=== PATIENT | male | born 1935 | race Caucasian/White ===

== ENCOUNTER 2017-09-08 05:34 | Observation (INO) | payer OTHER, MEDICARE ==
[2017-09-08] MEDS ORDERED: NA CHLORIDE 0.9% 1,000 ML ONE (06:40)
[2017-09-08] MEDS ORDERED: IPRATROPIUM BROM 0.5MG/2.5ML ONE (06:40)
[2017-09-08] MEDS ORDERED: ALBUTEROL 2.5 MG/3 ML NEB SOL ONE (06:40)
[2017-09-08 06:44] LABS: Absolute Monocytes 0.9 K/uL (0.1-1.3); Absolute Neutrophil 8.9 K/uL (1.8-8.0); Basophils % 0.6 % (0-1.3); Eosinophils % 1.2 % (0-4.4); Hematocrit 41.9 % (39.6-49.0); Lymphocytes % 9.1 % (15.3-44.8); MCH 28.1 pg (27.0-35.0); MCV 86.2 fL (80-100); Monocytes % 8.5 % (3.3-12.3); RBC Red Blood Cell Count 4.86 M/uL (4.33-5.43)
[2017-09-08 06:49] LABS: Protime INR 1.35
[2017-09-08 08:05] LABS: CKMB Creatine Kinase MB 0.8 ng/ml (0.3-4.0); Potassium 4.1 mEq/L (3.6-5.0)
[2017-09-08 08:12] LABS: Albumin 3.7 g/dL (3.2-5.5); Bilirubin Direct 0.2 mg/dL (0-0.2); Bilirubin Total 1.2 mg/dL (0.3-1.2); Magnesium 1.8 mg/dL (1.8-2.5); Protein, Total 7.1 g/dL (6.0-8.3)
--- NOTE | 2017-09-08 09:06 | RAD REPORT ---
EXAM DESCRIPTION: CT - Head C Spine Cap W Con - 09/08/2017 8:38 am CLINICAL HISTORY: Trauma, head and neck injury. Chest, abdomen and pelvis pain. COMPARISON: 05/31/2017, 06/11/2017 TECHNIQUE: CT head without contrast. CT cervical spine without contrast with coronal and sagittal reformatted images. CT chest, abdomen and pelvis with contrast with coronal and sagittal reformatted images of the spine. All CT scans are performed using dose optimization technique as appropriate and may include automated exposure control or mA/KV adjustment according to patient size. FINDINGS: CT HEAD WITHOUT CONTRAST: No intracranial hemorrhage, hydrocephalus or extra-axial fluid collection. Advanced generalized brain atrophy is present with advanced periventricular and deep white matter chronic microvascular ischemi c changes. No areas of brain edema or midline shift. The paranasal sinuses and mastoids are clear. The calvarium is intact. CT CERVICAL SPINE WITHOUT CONTRAST: No fracture or subluxation. Mild mid and upper cervical degenerative changes. The prevertebral soft t issues are normal in thickness. CT CHEST, ABDOMEN, PELVIS WITH CONTRAST: Ill-defined linear opacity is present in the right lung base, likely representing subsegmental atelec tasis or aspiration. Similar findings are present, but less severe, and left lung base.Small right pl eural effusion is noted. Moderate axial hiatal hernia.No pneumothorax. Filling defects are seen in th e right lower lobe, posterior right upper lobe, medial left lower lobe and left upper lobe anterior p ulmonary arterial branches compatible with pulmonary emboli. No RV strain pattern seen. No acute aort ic abnormality detected. No evidence of intra-abdominal visceral injury, free fluid or free air. Surgical clips are present megan th inguinal regions. The appendix is not identified as a discrete structure, however, no secondary fi ndings of appendicitis are identified. No free air, bowel obstruction or abscess. Diffuse osteopenia is seen. Multilevel degenerative changes are noted. No acute fracture identified. IMPRESSION: Bilateral pulmonary emboli are noted as detailed. Linear opacities in the right lung base with small right pleural effusion may represent aspiration or atelectasis. No acute finding is seen elsewhere. The findings were discussed with ER physician Dr. Kaufman on 09/08/2017 at 9 a.m. by telephone.
--- NOTE | 2017-09-08 09:12 | RAD REPORT ---
EXAM DESCRIPTION: RAD - Chest Single View - 09/08/2017 7:11 am CLINICAL HISTORY: Chest pain. COMPARISON: 06/13/2017 FINDINGS: Portable technique limits examination quality. The lungs are underinflated with linear opacities in both lung bases, likely representing infiltrate or subsegmental atelectasis. Small pleural effusions present, greater on the right. The heart is norm al in size. No displaced fractures.
--- NOTE | 2017-09-08 09:21 | ER ---
Nurse's Notes [facility] Name: Linsey Mcdonnell Age: 82 yrs Sex: Male : 1935 Arrival Date: 09/08/2017 Time: 05:35 Bed 18 Private MD: Diagnosis: Chest pain on breathing;Personal history of pulmonary embolism;Acute embolism and thrombosis of other specified deep vein of right lower extremity Presentation: 09/08 05:40 Presenting complaint: Child states: that pt started to complain of pain to right side fc near bottom rib on Thursday night. Pain has gotten worse. Pt does have cough and chronic bronchitis. Transition of care: patient was not received from another setting of care. Onset of symptoms was September 06, 2017. Initial Sepsis Screen: Does the patient meet any 2 criteria? HR > 90 bpm. Yes Does the patient have a suspected source of infection? Yes: Productive cough/pneumonia. Care prior to arrival: None. 05:40 Method Of Arrival: Wheelchair 05:40 Acuity: GILMAR 3 fc Historical: - Allergies: 05:55 NKA; fc - Home Meds: 05:55 oxybutynin chloride 5 mg Oral tab 1 tab 2 times per day [Active]; Singulair 10 mg Oral fc tab 1 tab once daily [Active]; Claritin 10 mg Oral tab 1 tab once daily [Active]; omeprazole 40 mg Oral cpDR 1 cap once daily [Active]; albuterol sulfate 0.63 mg/3 mL Inhl nebu every 6 hours [Active]; budesonide 0.5 mg/2 mL inhalation nbsp 2 mL 2 times per day [Active]; - PMHx: 05:55 BLIND; COPD; GERD; impaction; Bronchitis; Dementia; allergies; fc - PSHx: 05:55 Appendectomy; Hernia repair; TURP; fc - Immunization history:: Last tetanus immunization: unknown. - Social history:: Smoking status: Patient/guardian denies using tobacco. - Family history:: not pertinent. Screenin:40 Abuse screen: Denies threats or abuse. Nutritional screening: No deficits noted. fc Tuberculosis screening: No symptoms or risk factors identified. Fall Risk Fall in past 12 months (25 points). Secondary diagnosis (15 points) dementia, No IV (0 pts). Ambulatory Aid- Crutches/Cane/Walker (15 pts). Gait- Weak (10 pts.). Mental Status- Overestimates/Forgets Limitations (15 pts.). Total Pitts Fall Scale indicates High Risk Score (45 or more points). Fall prevention measures have been instituted. Side Rails Up X 2 Placed Close to Nursing Station Frequent Obs/Assessments Occuring Family Present and informed to notify staff if the need to leave the bedside As available patient and family educated on Fall Prevention Program and Strategies. Assessment: 06:07 General: Appears in no apparent distress. Behavior is appropriate for age. Pain: lp1 Complains of pain in right upper quadrant Pain currently is 6 out of 10 on a pain scale. Quality of pain is described as aching. Neuro: Level of Consciousness is awake, alert, obeys commands. Cardiovascular: Patient's skin is warm and dry. Rhythm is sinus rhythm. Respiratory: Respiratory effort is even, Respiratory pattern is regular, symmetrical, Breath sounds are clear bilaterally. GI: Abdomen is non-distended. : Denies burning with urination. EENT: Parent/caregiver reports the patient having patient is blind. Derm: Skin is pink, warm \T\ dry. Musculoskeletal: Circulation, motion, and sensation intact. 07:10 Reassessment: Bedside report and hand off care to MERLENE Shrestha. lp1 08:55 Reassessment: Provider at bedside discussing plan of care. ae1 10:11 Reassessment: retail pharmacy technician at bedside. ae1 11:36 Reassessment: Called 4th floor to give report to receiving nurse, spoke to ángela Neal room is currently being cleaned and receiving nurse will return call. Will continue to monitor. Vital Signs: 05:40 BP 137 / 72; Pulse 91; Resp 20; Temp 98.1(O); Pulse Ox 94% on R/A; Weight 81.65 kg (R); fc Height 5 ft. 7 in. (170.18 cm) (R); Pain 9/10; 07:07 BP 130 / 76; Pulse 86; Resp 20; Pulse Ox 94% on R/A; lp1 07:30 BP 134 / 72; Pulse 92; Resp 25; Pulse Ox 94% on R/A; ae1 09:16 BP 134 / 83; Pulse 85; Resp 23; Pulse Ox 94% on R/A; ae1 10:01 BP 119 / 75; Pulse 91; Resp 19; Pulse Ox 96% on R/A; ae1 12:27 BP 138 / 71; Pulse 84; Resp 15; Pulse Ox 95% on R/A; ae1 05:40 Body Mass Index 28.19 (81.65 kg, 170.18 cm) ED Course: 05:35 Patient arrived in ED. ds1 05:40 Arm band placed on Patient placed in an exam room, on a stretcher. fc 05:40 Patient has correct armband on for positive identification. Placed in gown. Bed in low fc position. Call light in reach. Side rails up X2. alarm security or surveillance monitor on. Pulse ox on. NIBP on. 05:52 Triage completed. fc 06:00 Ramón Kaufman MD is Attending Physician. stanton 06:07 Mery Joe, MERLENE is Primary Nurse. lp1 06:37 EKG done, by ED staff, reviewed by Ramón Kaufman MD. Inserted saline lock: 20 gauge in lp1 right forearm, using aseptic technique. Blood collected. 07:09 XRAY Chest (1 view) In Process Unspecified. EDMS 08:[address] via stretcher. ae1 08:22 Straight cath inserted, using sterile technique, Specimen obtained. 15 FR Returned ae1 collin urine. Patient tolerated well. 08:39 CT Traumagram (Head C Spine CAP W Con) In Process Unspecified. EDMS 09:19 Gabby Mcdaniels MD is Hospitalizing Provider. stanton 10:43 Patient taken to ultrasound. via stretcher. ae1 11:07 Ultrasound completed. Patient moved back from ultrasound. hr 12:17 No provider procedures requiring assistance completed. Patient admitted, IV remains in ae1 place. Administered Medications: 06:46 Drug: NS 0.9% 1000 ml Route: IV; Rate: 75 ml/hr; Site: right forearm; lp1 12:05 Follow up: IV Status: Infusion continued upon admission ae1 06:47 Drug: Albuterol 2.5 mg Route: Inhalation; lp1 06:47 Drug: AtroVENT Aerosol 0.5 mg Route: Inhalation; lp1 10:30 Drug: Lovenox 1 mg/kg Route: Sub-Q; Site: right lower abdomen; ae1 12:05 Follow up: Response: No adverse reaction ae1 Outcome: 09:21 Decision to Hospitalize by Provider. stanton 12:17 Admitted to Tele accompanied by rachid family with patient, via stretcher, room 410, ae1 with chart, Report called to MERLENE Montilla 12:17 Condition: stable 12:17 Instructed on the need for admit, Demonstrated understanding of instructions. 12:32 Patient left the ED. ae1 Signatures: Dispatcher [employer] EDMO Ramón Kaufman MD MD cha Rod, Haley hr Chretien, Felicia, RN RN fc Sanford, Demi ds1 Mery Joe RN RN lp1 Clovis Samson RN RN ae1 Corrections: (The following items were deleted from the chart) 07:11 07:10 Reassessment: Bedside report from MERLENE Ordonez. lp1 lp1
--- NOTE | 2017-09-08 09:21 | EDPHYS ---
Physician Documentation [facility] Name: Linsey Mcdonnell Age: 82 yrs Sex: Male : 1935 Arrival Date: 09/08/2017 Time: 05:35 Bed 18 Private MD: Ramón Devine HPI: 09/08 06:12 This 82 yrs old Male presents to ER via Wheelchair with complaints of R Side stanton Pain. 06:12 The patient presents with abdominal pain. Onset: The symptoms/episode began/occurred stanton yesterday. The patient or guardian reports chest pain that is located primarily in the anterior chest wall, anterior aspect of right upper chest, diaphragm, right lateral anterior chest, right lateral posterior chest, right nipple and right breast. Onset: The symptoms/episode began/occurred 1 day(s) ago. The pain does not radiate. Associated signs and symptoms: Pertinent positives: abdominal pain, shortness of breath. The chest pain is described as sharp. Severity of pain: At its worst the pain was mild moderate in the emergency department the pain is unchanged. Historical: - Allergies: 05:55 NKA; fc - Home Meds: 05:55 oxybutynin chloride 5 mg Oral tab 1 tab 2 times per day [Active]; Singulair 10 mg Oral fc tab 1 tab once daily [Active]; Claritin 10 mg Oral tab 1 tab once daily [Active]; omeprazole 40 mg Oral cpDR 1 cap once daily [Active]; albuterol sulfate 0.63 mg/3 mL Inhl nebu every 6 hours [Active]; budesonide 0.5 mg/2 mL inhalation nbsp 2 mL 2 times per day [Active]; - PMHx: 05:55 BLIND; COPD; GERD; impaction; Bronchitis; Dementia; allergies; fc - PSHx: 05:55 Appendectomy; Hernia repair; TURP; fc - Immunization history:: Last tetanus immunization: unknown. - Social history:: Smoking status: Patient/guardian denies using tobacco. - Family history:: not pertinent. ROS: 06:12 Constitutional: Negative for fever, chills, and weight loss, Eyes: Negative for injury, stanton pain, redness, and discharge, ENT: Negative for injury, pain, and discharge, Neck: Negative for injury, pain, and swelling, Cardiovascular: Negative for chest pain, palpitations, and edema, Abdomen/GI: Negative for abdominal pain, nausea, vomiting, diarrhea, and constipation, Back: Negative for injury and pain, : Negative for injury, bleeding, discharge, and swelling, MS/Extremity: Negative for injury and deformity, Skin: Negative for injury, rash, and discoloration, Neuro: Negative for headache, weakness, numbness, tingling, and seizure, Psych: Negative for depression, anxiety, suicide ideation, homicidal ideation, and hallucinations, Allergy/Immunology: Negative for hives, rash, and allergies, Endocrine: Negative for neck swelling, polydipsia, polyuria, polyphagia, and marked weight changes. 06:12 Respiratory: Positive for cough, pleurisy, shortness of breath, wheezing, inspiratory, expiratory, of the right upper lobe, right middle lobe, right lower lobe, right posterior upper lobe, right posterior middle lobe and right posterior lower lobe. Exam: 06:12 Constitutional: This is a well developed, well nourished patient who is awake, alert, stanton and in no acute distress. Head/Face: Normocephalic, atraumatic. Eyes: Pupils equal round and reactive to light, extra-ocular motions intact. Lids and lashes normal. Conjunctiva and sclera are non-icteric and not injected. Cornea within normal limits. Periorbital areas with no swelling, redness, or edema. ENT: Nares patent. No nasal discharge, no septal abnormalities noted. Tympanic membranes are normal and external auditory canals are clear. Oropharynx with no redness, swelling, or masses, exudates, or evidence of obstruction, uvula midline. Mucous membranes moist. Neck: Trachea midline, no thyromegaly or masses palpated, and no cervical lymphadenopathy. Supple, full range of motion without nuchal rigidity, or vertebral point tenderness. No Meningismus. Cardiovascular: Regular rate and rhythm with a normal S1 and S2. No gallops, murmurs, or rubs. Normal PMI, no JVD. No pulse deficits. Respiratory: Lungs have equal breath sounds bilaterally, clear to auscultation and percussion. No rales, rhonchi or wheezes noted. No increased work of breathing, no retractions or nasal flaring. Abdomen/GI: Soft, non-tender, with normal bowel sounds. No distension or tympany. No guarding or rebound. No evidence of tenderness throughout. Back: No spinal tenderness. No costovertebral tenderness. Full range of motion. Male : Normal genitalia with no discharge or lesions. Skin: Warm, dry with normal turgor. Normal color with no rashes, no lesions, and no evidence of cellulitis. MS/ Extremity: Pulses equal, no cyanosis. Neurovascular intact. Full, normal range of motion. Neuro: Awake and alert, GCS 15, oriented to person, place, time, and situation. Cranial nerves II-XII grossly intact. Motor strength 5/5 in all extremities. Sensory grossly intact. Cerebellar exam normal. Normal gait. Psych: Awake, alert, with orientation to person, place and time. Behavior, mood, and affect are within normal limits. Vital Signs: 05:40 BP 137 / 72; Pulse 91; Resp 20; Temp 98.1(O); Pulse Ox 94% on R/A; Weight 81.65 kg (R); fc Height 5 ft. 7 in. (170.18 cm) (R); Pain 9/10; 07:07 BP 130 / 76; Pulse 86; Resp 20; Pulse Ox 94% on R/A; lp1 07:30 BP 134 / 72; Pulse 92; Resp 25; Pulse Ox 94% on R/A; ae1 09:16 BP 134 / 83; Pulse 85; Resp 23; Pulse Ox 94% on R/A; ae1 10:01 BP 119 / 75; Pulse 91; Resp 19; Pulse Ox 96% on R/A; ae1 12:27 BP 138 / 71; Pulse 84; Resp 15; Pulse Ox 95% on R/A; ae1 05:40 Body Mass Index 28.19 (81.65 kg, 170.18 cm) MDM: 06:00 Patient medically screened. [facility] 06:15 Data reviewed: vital signs, nurses notes, lab test result(s), EKG, radiologic studies, [facility] CT scan, plain films. 09/08 06:10 Order name: Basic Metabolic Panel; Complete Time: 08:22 [facility] 09/08 06:10 Order name: BNP; Complete Time: 07:24 [facility] 09/08 06:10 Order name: CBC with Diff; Complete Time: 07:14 [facility] 09/08 06:10 Order name: Ckmb; Complete Time: 08:22 [facility] 09/08 06:10 Order name: CPK; Complete Time: 08:22 [facility] 09/08 06:10 Order name: LFT's; Complete Time: 08:22 [facility] 09/08 06:10 Order name: Magnesium; Complete Time: 08:22 [facility] 09/08 06:10 Order name: PT-INR; Complete Time: 07:14 [facility] 09/08 06:10 Order name: Ptt, Activated; Complete Time: 07:14 [facility] 09/08 06:10 Order name: Troponin (emerg Dept Use Only); Complete Time: 07:14 [facility] 09/08 06:10 Order name: Lipase; Complete Time: 08:22 [facility] 09/08 09:49 Order name: Urine Dipstick--Ancillary (enter results) 09/08 10:38 Order name: Urine Dipstick-Ancillary [facility] 09/08 12:19 Order name: Procalcitonin [facility] 09/08 06:10 Order name: XRAY Chest (1 view); Complete Time: 09:18 [facility] 09/08 06:10 Order name: EKG; Complete Time: 06:10 [facility] 09/08 06:10 Order name: Cardiac monitoring; Complete Time: 06:11 [facility] 09/08 06:10 Order name: EKG - Nurse/Tech; Complete Time: 06:37 [facility] 09/08 06:10 Order name: IV Saline Lock; Complete Time: 06:37 [facility] 09/08 06:10 Order name: Labs collected and sent; Complete Time: 06:37 [facility] 09/08 06:10 Order name: CT Traumagram (Head C Spine CAP W Con); Complete Time: 09:18 [facility] 09/08 06:10 Order name: INCENTIVE SPIROMETRY [facility] 09/08 09:25 Order name: CONS Physician Consult [facility] 09/08 09:30 Order name: Echo w/ Doppler [facility] 09/08 10:04 Order name: US Extremity Venou Bilateral [facility] 09/08 11:17 Order name: VAS [facility] 09/08 06:10 Order name: O2 Per Protocol; Complete Time: 06:11 [facility] 09/08 06:10 Order name: O2 Sat Monitoring; Complete Time: 06:11 [facility] 09/08 06:10 Order name: Urine Dipstick-Ancillary (obtain specimen); Complete Time: 08:21 [facility] 09/08 08:21 Order name: Cath; Complete Time: 08:22 ae1 Administered Medications: 06:46 Drug: NS 0.9% 1000 ml Route: IV; Rate: 75 ml/hr; Site: right forearm; lp1 12:05 Follow up: IV Status: Infusion continued upon admission ae1 06:47 Drug: Albuterol 2.5 mg Route: Inhalation; lp1 06:47 Drug: AtroVENT Aerosol 0.5 mg Route: Inhalation; lp1 10:30 Drug: Lovenox 1 mg/kg Route: Sub-Q; Site: right lower abdomen; ae1 12:05 Follow up: Response: No adverse reaction ae1 Disposition: 09/08/17 09:21 Hospitalization ordered by Gabby Mcdaniels for Inpatient Admission. Preliminary diagnosis are Chest pain on breathing, Personal history of pulmonary embolism, Acute embolism and thrombosis of other specified deep vein of right lower extremity. - Bed requested for Telemetry/MedSurg (Inpatient). - Status is Inpatient Admission. ae1 - Condition is Stable. - Problem is new. - Symptoms have improved. UTI on Admission? No Signatures: Dispatcher [employer] EDMS Ramón Kaufman MD MD cha Chretien, Felicia, RN RN Nereyda Rocha RN RN Mery Joe RN RN lp1 Nini Vieyra Clovis Samson RN RN ae1 Corrections: (The following items were deleted from the chart) 10:41 09:21 Hospitalization Ordered by Gabby Mcdaniels MD for Inpatient Admission. Preliminary iw diagnosis is Chest pain on breathing; Personal history of pulmonary embolism. Bed requested for Telemetry/MedSurg (Inpatient). Status is Inpatient Admission. Condition is Stable. Problem is new. Symptoms have improved. UTI on Admission? No. [place] 11:26 10:41 09/08/2017 09:21 Hospitalization Ordered by Gabby Mcdaniels MD for Inpatient ag Admission. Preliminary diagnosis is Chest pain on breathing; Personal history of pulmonary embolism. Bed requested for [facility] ER HOLD. Status is Inpatient Admission. Condition is Stable. Problem is new. Symptoms have improved. UTI on Admission? No. iw 11:59 11:26 09/08/2017 09:21 Hospitalization Ordered by Gabby Mcdaniels MD for Inpatient stanton Admission. Preliminary diagnosis is Chest pain on breathing; Personal history of pulmonary embolism. Bed requested for Telemetry/MedSurg (Inpatient). Status is Inpatient Admission. Condition is Stable. Problem is new. Symptoms have improved. UTI on Admission? No. ag 12:32 11:59 09/08/2017 09:21 Hospitalization Ordered by Gabby Mcdaniels MD for Inpatient ae1 Admission. Preliminary diagnosis is Chest pain on breathing; Personal history of pulmonary embolism; Acute embolism and thrombosis of other specified deep vein of right lower extremity. Bed requested for Telemetry/MedSurg (Inpatient). Status is Inpatient Admission. Condition is Stable. Problem is new. Symptoms have improved. UTI on Admission? No. [place]
[2017-09-08] MEDS ORDERED: ENOXAPARIN 80 MG/0.8 ML SQ ONE (10:16)
[2017-09-08 10:38] LABS: Urine Blood TRACE (NEG); Urine Glucose NEGATIVE (NEG); Urine Protein NEGATIVE (NEG)
[2017-09-08] MEDS ORDERED: ONDANSETRON 4 MG/2 ML VIAL IV PRN (10:38)
[2017-09-08] MEDS ORDERED: ACETAMINOPHEN 500 MG TAB PO PRN (10:38)
--- NOTE | 2017-09-08 11:16 | RAD REPORT ---
EXAM DESCRIPTION: VASExtrem Venous W Compress Bil09/08/2017 11:00 am CLINICAL HISTORY: Bilateral leg s leg swelling and pain COMPARISON: none FINDINGS: Echogenic material consistent with acute thrombus is present within the proximal right sup erficial femoral vein extending into the right popliteal and right posterior tibial veins. The thromb us is occlusive. No evidence of deep veinous thrombosis involves left lower extremity IMPRESSION: Acute thrombus within the right superficial femoral, right popliteal and right posterior tibial veins
--- NOTE | 2017-09-08 11:55 | EKG ---
Test Date: 2017-09-08 Test Time: 06:20:54 [employer]: AB MEASUREMENT RESULTS: Intervals: Rate: 78 [place]: 172 QRSD: 92 QT: 360 QTc: 410 [place]: P: 39 [place]: 172 QRS: 0 T: 28 INTERPRETIVE STATEMENTS: Normal sinus rhythm Normal ECG Compared to ECG 06/11/2017 09:39:44 No significant changes Electronically Signed On 09-08-17 11:54:04 CDT by Delmer Luu
--- NOTE | 2017-09-08 13:01 | ECHO ---
HEIGHT: 5 ft 7 in WEIGHT: 180 lb 0 oz DATE OF STUDY: 09/08/[address]: Ramón Kaufman MD 2-DIMENSIONAL: YES M.MODE: YES DOPPLER: YES COLOR FLOW: YES TDS: YES PORTABLE: NO DEFINITY: NO BUBBLE STUDY: NO DIAGNOSIS: BILATERAL PES CARDIAC HISTORY: CATHERIZATION: SURGERY: PROSTHETIC VALVE: PACEMAKER: MEASUREMENTS (cm) DIASTOLIC (NORMALS) SYSTOLIC (NORMALS) IVSd 1.2 (0.6-1.2) LA Diam (1.9-4.0) LVEF 68% LVIDd 3.7 (3.5-5.7) LVIDs 2.3 (2.0-3.5) %FS 37% LVPWd 1.0 (0.6-1.2) Ao Diam 3.2 (2.0-3.7) 2 DIMENSIONAL ASSESSMENT: RIGHT ATRIUM: NORMAL LEFT ATRIUM: NORMLA RIGHT VENTRICLE: NORMAL LEFT VENTRICLE: NORMAL TRICUSPID VALVE: NORMAL MITRAL VALVE: NORMAL PULMONIC VALVE: NORMAL AORTIC VALVE: NORMAL PERICARDIAL EFFUSION: NONE AORTIC ROOT: NORMAL LEFT VENTRICULAR WALL MOTION: NORMAL DOPPLER/COLOR FLOW: NORMAL COMMENTS: TECHNICALLY DIFFICULT STUDY. GROSSLY NORMAL 2D ECHOCARDIOGRAM WITH DOPPLER. TECHNOLOGIST: Yanet HUANG
[2017-09-08] MEDS: IPRATROPIUM BROM 0.5MG/2.5ML NEB SCH ×2 (14:17→19:32)
[2017-09-08] MEDS: ALBUTEROL 2.5 MG/3 ML NEB SOL NEB SCH ×2 (14:17→19:32)
[2017-09-08] MEDS ORDERED: TRAMADOL HCL 50 MG TAB PO PRN (14:51)
[2017-09-08] MEDS: predniSONE 10 MG TAB PO SCH (15:02)
--- NOTE | 2017-09-08 16:50 | P.CNS ---
Date of Consult: 09/08/17 Reason for Consult: Pulmonary emboli Chief Complaint: Right-sided chest pain History of Present Illness: Patient is 82 years of age with a history of dementia COPD legally blind apparently started complaining of severe right-sided chest discomfort with started all of a sudden any came here to the emergency room and was found to have bilateral pulmonary emboli patient leads a very sedentary lifestyle in since in his wheelchair all day along recently travel to [place] in a car and was stationary for prolonged period of time the slight shortness of breath he does have COPD and is seeing a patient service associate in addition patient complains of persistent coughing spells after he had barium swallow was seen by speech therapy hemodynamically stable compliant with his medications Allergies No Known Allergies Allergy (Verified 05/24/17 06:03) Home Medications: Donepezil [Aricept*] 10 mg PO DAILY 06/11/17 Linaclotide [Linzess] 145 mcg PO DAILY 06/11/17 Albuterol Sulfate [Proair Hfa] 8.5 gm IH TID PRN #1 hfa.aer.ad 06/13/17 Budesonide [Pulmicort*] 0.5 mg IH BID #60 amp 06/13/17 Fluticasone [Flonase 50MCG Nasal [place]*] 1 sprays AJ BID #1 btl 06/13/17 Oxybutynin Chloride [Ditropan*] 5 mg PO BEDTIME #30 tab 06/13/17 Pantoprazole [Protonix Tab*] 40 mg PO DAILY #30 tab 06/13/17 Arformoterol Tartrate [Brovana] 15 mcg IH BID 09/08/17 Montelukast [Singulair] 10 mg PO DAILY 09/08/17 Prednisone [Deltasone*] 10 mg PO DAILY 09/08/17 - Past Medical/Surgical History Diabetic: No -: Chronic constipation -: COPD with chronic bronchiectasis -: BPH -: Urinary incontinence -: Blindness -: Dementia -: Retinitis Pigmentosa -: Bilateral inguinal hernia repair -: Appendectomy -: TURP -: Lower extremity fracture repair - hardware Psychosocial/ Personal History: The patient is . He has 4 children. He currently lives with his granddaughter. - Family History Father Medical History: Cancer Mother Medical History: Cancer - Social History Alcohol use: No CD- Drugs: No Caffeine use: Yes Place of Residence: Home Review of Systems 10-point ROS is otherwise unremarkable General: Weakness Cardiovascular: Chest Pain Physical Examination Temp Pulse Resp BP Pulse Ox 98.3 F 86 18 140/70 96 09/08/17 16:00 09/08/17 16:00 09/08/17 16:00 09/08/17 16:00 09/08/17 16:00 General: Alert, Cooperative Neck: Supple Respiratory: Clear to auscultation bilaterally, Diminished Cardiovascular: No edema, Normal pulses Gastrointestinal: Normal bowel sounds, Soft and benign Laboratory Data (last 24 hrs) 09/08/17 06:30: PT 16.0 H, INR 1.35, APTT 29.3 09/08/17 06:30: WBC 11.0 H, Hgb 13.7, Hct 41.9, Plt Count 255 09/08/17 06:30: B-Natriuretic Peptide < 10 09/08/17 06:30: Sodium 130 L, Potassium 4.1, BUN 22 H, Creatinine 0.90, Glucose 102, Magnesium 1.8, Total Bilirubin 1.2, AST 22, ALT 31, Alkaline Phosphatase 58 , Lipase 17 L - Problems (1) Pulmonary emboli Current Visit: Yes Status: Acute Plan: Patient is 82 years of age admitted with right-sided chest pain he has bilateral pulmonary emboli with acute right-sided DVT no recent surgeries and is a very sedentary lifestyle lives at home mi agree starting him on Eliquis 10 mg twice a day for 7 days and 5 mg twice a day for at least 3 months and then later and dose can be and adjusted to 2.5 mg twice a day discuss with family members labs reviewed echocardiogram is normal in addition he complains of slight dysphagia GI has been counseled Qualifiers: Chronicity: acute
--- NOTE | 2017-09-08 17:28 | P.HP ---
Certification for Inpatient Patient admitted to: Observation With expected LOS: <2 Midnights Patient will require the following post-hospital care: None Practitioner: I am a practitioner with admitting privileges, knowledge of patient current condition, hospital course, and medical plan of care. Services: Services provided to patient in accordance with Admission requirements found in Title 42 Section 412.3 of the Code of Federal Regulations Patient History Date of Service: 09/08/17 Primary Care Provider: Dr Ellsworth Reason for admission: Right-sided chest pain History of Present Illness: 82-year-old male with significant past medical history of COPD, GERD commode dementia who presented to the ED complaining of having some anterior chest wall pain along with the rib pain. Patient stated that his symptoms started yesterday in her located it primarily in the right upper chest wall abd breast area. Patient is sharp in nature and does think helps with the pain at home. Patient is wheelchair bound and does have limited mobility due to chronic debility. In the ER patient had a CT scan done which was found to have bilateral PE and extremity venous ultrasound was positive for DVT patient was then referred to admission for medicine team Allergies No Known Allergies Allergy (Verified 05/24/17 06:03) Home Medications: Donepezil [Aricept*] 10 mg PO DAILY 06/11/17 Linaclotide [Linzess] 145 mcg PO DAILY 06/11/17 Albuterol Sulfate [Proair Hfa] 8.5 gm IH TID PRN #1 hfa.aer.ad 06/13/17 Budesonide [Pulmicort*] 0.5 mg IH BID #60 amp 06/13/17 Fluticasone [Flonase 50MCG Nasal [place]*] 1 sprays AJ BID #1 btl 06/13/17 Oxybutynin Chloride [Ditropan*] 5 mg PO BEDTIME #30 tab 06/13/17 Pantoprazole [Protonix Tab*] 40 mg PO DAILY #30 tab 06/13/17 Arformoterol Tartrate [Brovana] 15 mcg IH BID 09/08/17 Montelukast [Singulair] 10 mg PO DAILY 09/08/17 Prednisone [Deltasone*] 10 mg PO DAILY 09/08/17 - Past Medical/Surgical History Has patient received pneumonia vaccine in the past: Yes Diabetic: No -: Chronic constipation -: COPD with chronic bronchiectasis -: BPH -: Urinary incontinence -: Blindness -: Dementia -: Retinitis Pigmentosa -: Bilateral inguinal hernia repair -: Appendectomy -: TURP -: Lower extremity fracture repair - hardware Psychosocial/ Personal History: The patient is . He has 4 children. He currently lives with his granddaughter. - Family History Father -: Cancer Mother -: Cancer - Social History Smoking Status: Never smoker Alcohol use: No CD- Drugs: No Caffeine use: Yes Place of Residence: Home Review of Systems General: As per HPI Physical Examination - Vital Signs Temperature: 98.3 F Blood Pressure: 140/70 Pulse: 86 Respirations: 18 Pulse Ox (%): 96 - Physical Exam General: Alert, In no apparent distress, Oriented x3 HEENT: Atraumatic, Other (Legally Blind) Neck: Supple Respiratory: Normal air movement, Expiratory wheezes, Inspiratory wheezes Cardiovascular: Regular rate/rhythm, Normal S1 S2 Gastrointestinal: Normal bowel sounds, No tenderness Musculoskeletal: No tenderness Integumentary: No rashes Neurological: Normal gait, Normal speech, Normal strength at 5/5 x4 extr, Normal tone, Normal affect Lymphatics: No axilla or inguinal lymphadenopathy - Studies Laboratory Data (last 24 hrs) 09/08/17 06:30: PT 16.0 H, INR 1.35, APTT 29.3 09/08/17 06:30: WBC 11.0 H, Hgb 13.7, Hct 41.9, Plt Count 255 09/08/17 06:30: B-Natriuretic Peptide < 10 09/08/17 06:30: Sodium 130 L, Potassium 4.1, BUN 22 H, Creatinine 0.90, Glucose 102, Magnesium 1.8, Total Bilirubin 1.2, AST 22, ALT 31, Alkaline Phosphatase 58 , Lipase 17 L Assessment and Plan - Problems (Diagnosis) (1) Pulmonary emboli Current Visit: Yes Status: Acute Plan: PE with Decreased Mobility -Started on Eliquis 10mg BID -Pulmonology Consulted. Appreciate [facility] -Will Get ECHO done here in the hospital Qualifiers: Pulmonary embolism type: other Chronicity: acute Acute cor pulmonale presence: without acute cor pulmonale Qualified Code(s): I26.99 - Other pulmonary embolism without acute cor pulmonale (2) DVT (deep venous thrombosis) Current Visit: Yes Status: Acute Plan: US of the Extermity with Acute thrombus within the right superficial femoral, right popliteal and right posterior tibial veins -See # 1 Qualifiers: DVT location: lower extremity Affected thrombotic vein of extremity: femoral Chronicity: acute Laterality: right Qualified Code(s): I82.411 - Acute embolism and thrombosis of right femoral vein (3) GERD (gastroesophageal reflux disease) Current Visit: Yes Status: Chronic Qualifiers: Esophagitis presence: without esophagitis Qualified Code(s): K21.9 - Gastro -esophageal reflux disease without esophagitis (4) Dysphagia Current Visit: Yes Status: Acute Plan: Pt had a MBS done on 09/01 which was consistent with Mild stasis -Speech Therapy and GI consult. Qualifiers: Dysphagia type: pharyngoesophageal phase Qualified Code(s): R13.14 - Dysphagia, pharyngoesophageal phase (5) COPD (chronic obstructive pulmonary disease) Current Visit: No Status: Chronic Qualifiers: COPD type: COPD with acute exacerbation Qualified Code(s): J44.1 - Chronic obstructive pulmonary disease with (acute) exacerbation (6) Dementia Onset Date: 06/12/17 Current Visit: No Status: Chronic Qualifiers: Dementia type: unspecified type Dementia behavioral disturbance: without behavioral disturbance Qualified Code(s): F03.90 - Unspecified dementia without behavioral disturbance Discharge Plan: Home Plan to discharge in: 24 Hours - Advance Directives Does patient have a Living Will: No Does patient have a Durable POA for Healthcare: Yes - Code Status/Comfort Care Code Status Assessed: Yes Critical Care: No
[2017-09-08] MEDS: BUDESONIDE 0.5 MG/2 ML NEB IH SCH (19:32)
[2017-09-08] MEDS: ARFORMOTEROL TARTRATE 15 MCG/2 ML VIAL.NEB IH SCH (19:32)
[2017-09-08] MEDS ORDERED: OXYBUTYNIN CHLORIDE 5 MG TAB PO SCH (21:00)
[2017-09-08] MEDS: FLUTICASONE 50MCG NASAL SPRAY NAS SCH (21:00)
[2017-09-08] MEDS ORDERED: DONEPEZIL HCL 5 MG TAB PO SCH (21:00)
[2017-09-08] MEDS: APIXABAN 5 MG TABLET PO SCH (21:30)
[2017-09-09] MEDS: IPRATROPIUM BROM 0.5MG/2.5ML NEB SCH ×3 (01:26→13:32)
[2017-09-09] MEDS: ALBUTEROL 2.5 MG/3 ML NEB SOL NEB SCH ×3 (01:26→13:32)
[2017-09-09 04:12] LABS: Absolute Lymphocytes (CBC) 0.8 K/uL (0.7-4.9); Absolute Monocytes 0.8 K/uL (0.1-1.3); Absolute Neutrophil 7.7 K/uL (1.8-8.0); Basophils % 0.2 % (0-1.3); Eosinophils % 1.1 % (0-4.4); Hematocrit 37.9 % (39.6-49.0); Lymphocytes % 8.4 % (15.3-44.8); MCV 85.7 fL (80-100); Monocytes % 8.9 % (3.3-12.3); RBC Red Blood Cell Count 4.42 M/uL (4.33-5.43)
[2017-09-09 04:29] LABS: ALT/SGPT 27 IU/L (10-60); AST/SGOT 20 IU/L (10-42); Albumin 3.2 g/dL (3.2-5.5); Alkaline Phosphatase 54 IU/L (42-121); BUN Blood Urea Nitrogen 17 mg/dL (6-20); Bicarbonate 28 mEq/L (21-31); Bilirubin Total 0.7 mg/dL (0.3-1.2); Glucose Level 127 mg/dL (65-120); Magnesium 1.8 mg/dL (1.8-2.5); Phosphorus 3.5 mg/dL (2.5-4.3); Potassium 4.1 mEq/L (3.6-5.0); Protein, Total 6.3 g/dL (6.0-8.3); Sodium Level 130 mEq/L (135-145)
[2017-09-09] MEDS ORDERED: MAGNESIUM SULFATE 1 gm IVPB 1 GM/100 ML BAG IV ONE (05:00)
[2017-09-09] MEDS ORDERED: NA CHLORIDE 0.9% 0 ML ONE (05:56)
[2017-09-09] MEDS ORDERED: PANTOPRAZOLE 40MG TABLET PO SCH (07:30)
[2017-09-09] MEDS: BUDESONIDE 0.5 MG/2 ML NEB IH SCH (08:00)
[2017-09-09] MEDS: ARFORMOTEROL TARTRATE 15 MCG/2 ML VIAL.NEB IH SCH (08:08)
[2017-09-09] MEDS ORDERED: BUDESONIDE 0.5 MG/2 ML NEB IH SCH (08:15)
[2017-09-09] MEDS ORDERED: MONTELUKAST 10 MG TAB PO SCH (09:00)
[2017-09-09] MEDS ORDERED: predniSONE 20 MG TAB PO SCH (09:00)
[2017-09-09] MEDS: FLUTICASONE 50MCG NASAL SPRAY NAS SCH (09:00)
[2017-09-09] MEDS ORDERED: HOME MED 1 EA UNK (Linaclotide [Linzess] 145 MCG) PO SCH (09:00)
[2017-09-09] MEDS ORDERED: ENOXAPARIN 40 MG/0.4 ML SQ SCH (09:00)
[2017-09-09] MEDS ORDERED: LACTULOSE 20 GM/30 ML UCUP PO ONE (09:36)
[2017-09-09] MEDS: predniSONE 10 MG TAB PO SCH (10:14)
[2017-09-09] MEDS: APIXABAN 5 MG TABLET PO SCH (10:14)
--- NOTE | 2017-09-09 14:10 | P.SSS ---
Patient History Date of Service: 09/09/17 Primary Care Provider: Dr Ellsworth Reason for admission: Right-sided chest pain History of Present Illness: 82-year-old male with significant past medical history of COPD, GERD commode dementia who presented to the ED complaining of having some anterior chest wall pain along with the rib pain. Patient stated that his symptoms started yesterday in her located it primarily in the right upper chest wall abd breast area. Patient is sharp in nature and does think helps with the pain at home. Patient is wheelchair bound and does have limited mobility due to chronic debility. In the ER patient had a CT scan done which was found to have bilateral PE and extremity venous ultrasound was positive for DVT patient was then referred to admission for medicine team Allergies No Known Allergies Allergy (Verified 05/24/17 06:03) Home Medications: Donepezil [Aricept*] 10 mg PO DAILY 06/11/17 Linaclotide [Linzess] 145 mcg PO DAILY 06/11/17 Albuterol Sulfate [Proair Hfa] 8.5 gm IH TID PRN #1 hfa.aer.ad 06/13/17 Budesonide [Pulmicort*] 0.5 mg IH BID #60 amp 06/13/17 Fluticasone [Flonase 50MCG Nasal [place]*] 1 sprays AJ BID #1 btl 06/13/17 Oxybutynin Chloride [Ditropan*] 5 mg PO BEDTIME #30 tab 06/13/17 Pantoprazole [Protonix Tab*] 40 mg PO DAILY #30 tab 06/13/17 Arformoterol Tartrate [Brovana] 15 mcg IH BID 09/08/17 Montelukast [Singulair*] 10 mg PO DAILY 09/08/17 Prednisone [Deltasone*] 10 mg PO DAILY 09/08/17 Apixaban [Eliquis] 10 mg PO BID #58 tablet 09/09/17 - Past Medical/Surgical History Has patient received pneumonia vaccine in the past: Yes Diabetic: No -: Chronic constipation -: COPD with chronic bronchiectasis -: BPH -: Urinary incontinence -: Blindness -: Dementia -: Retinitis Pigmentosa -: Bilateral inguinal hernia repair -: Appendectomy -: TURP -: Lower extremity fracture repair - hardware Psychosocial/ Personal History: The patient is . He has 4 children. He currently lives with his granddaughter. - Family History Father -: Cancer Mother -: Cancer - Social History Smoking Status: Never smoker Alcohol use: No CD- Drugs: No Caffeine use: Yes Place of Residence: Home Review of Systems General: As per HPI Physical Examination - Vital Signs Temperature: 97.2 F Blood Pressure: 132/65 Pulse: 88 Respirations: 18 Pulse Ox (%): 18 - Physical Exam General: Alert, In no apparent distress HEENT: Atraumatic, PERRLA, Mucous membr. moist/pink, EOMI, Sclerae nonicteric Neck: Supple, 2+ carotid pulse no bruit, No LAD, Without JVD or thyroid abnormality Respiratory: Clear to auscultation bilaterally, Normal air movement Cardiovascular: Regular rate/rhythm, Normal S1 S2 Gastrointestinal: Normal bowel sounds, No tenderness Musculoskeletal: No tenderness Integumentary: No rashes Neurological: Normal gait, Normal speech, Normal strength at 5/5 x4 extr, Normal tone, Normal affect Lymphatics: No axilla or inguinal lymphadenopathy - Diagnosis (Problem(s)) (1) Pulmonary emboli Onset Date: 09/09/17 Current Visit: Yes Status: Acute Plan: PE with Decreased Mobility -Started on Eliquis 10mg BID for 7 days and will be switched to 5mg BID -Pulmonology Consulted. Appreciate [facility] Qualifiers: Pulmonary embolism type: other Chronicity: acute Acute cor pulmonale presence: without acute cor pulmonale Qualified Code(s): I26.99 - Other pulmonary embolism without acute cor pulmonale (2) DVT (deep venous thrombosis) Onset Date: 09/09/17 Current Visit: Yes Status: Acute Plan: US of the Extermity with Acute thrombus within the right superficial femoral, right popliteal and right posterior tibial veins -See # 1 Qualifiers: DVT location: lower extremity Affected thrombotic vein of extremity: femoral Chronicity: acute Laterality: right Qualified Code(s): I82.411 - Acute embolism and thrombosis of right femoral vein (3) GERD (gastroesophageal reflux disease) Onset Date: 09/09/17 Current Visit: Yes Status: Chronic Qualifiers: Esophagitis presence: without esophagitis Qualified Code(s): K21.9 - Gastro -esophageal reflux disease without esophagitis (4) Dysphagia Onset Date: 09/09/17 Current Visit: Yes Status: Chronic Plan: Pt had a MBS done on 09/01 which was consistent with Mild stasis -Speech Therapy. Normal Swollowing -Pt to f/u with outpt GI Qualifiers: Dysphagia type: pharyngoesophageal phase Qualified Code(s): R13.14 - Dysphagia, pharyngoesophageal phase (5) COPD (chronic obstructive pulmonary disease) Onset Date: 09/09/17 Current Visit: Yes Status: Chronic Qualifiers: COPD type: COPD with acute exacerbation Qualified Code(s): J44.1 - Chronic obstructive pulmonary disease with (acute) exacerbation (6) Dementia Onset Date: 06/12/17 Current Visit: No Status: Chronic Qualifiers: Dementia type: unspecified type Dementia behavioral disturbance: without behavioral disturbance Qualified Code(s): F03.90 - Unspecified dementia without behavioral disturbance Treatment Summary: Overall during the hospital stay patient remained stable Patient was initially admitted to the hospital for bilateral pulmonary embolism along with DVT on the right lower extremity. Patient was started on Eliquis 10 mg b.i.d.. Pulmonology was consulted who agreed with the plan and patient was doing well post Eliquis attestation. Patient had been on swallow done on the 1st and [facility] which was consistent with mild stasis. Speech therapy was consulted for side swallow. Patient's fellow passed a swallow study with some mild stasis. Patient will be needing to follow up with GI outpatient. Patient on day 2 was doing markedly well and had a p.o. intake. This was discharged home under stable condition. - Disposition Disposition: ROUTINE DISCHARGE Condition: GOOD Patient Discharge Instructions: Please f/u with Dr Ellsworth in 1 to 2 week post discharge. Please f/u with Pulmonology for PE in 1 to 2 days. Please f/u with GI in 1 to 2 weeks to assess for Mild stasis in the esophagus. New medication. Eliquis 10mg BID for 7 days and then take 5mg BID for rest of time Diet: Regular Activity: Ad belen
== END 2017-09-09 14:15 | disposition home or self-care (01) ==
LOC: ER 05:34 → ERHOLD 09:22 → INTOOBSV 09:22 → 4TH 12:06
PROVIDERS: ADMIT Family Medicine; ATTEND Family Medicine
DX: I26.99 Other pulmonary embolism without acute cor pulmonale (principal); I82.411 Acute embolism and thrombosis of right femoral vein; I82.431 Acute embolism and thrombosis of right popliteal vein; I82.441 Acute embolism and thrombosis of right tibial vein; R13.14 Dysphagia, pharyngoesophageal phase; J44.9 Chronic obstructive pulmonary disease, unspecified; F03.90 Unspecified dementia, unspecified severity, without behavioral disturbance, psychotic disturbance, mood disturbance, and anxiety; N40.0 Benign prostatic hyperplasia without lower urinary tract symptoms; H54.7 Unspecified visual loss; K21.9 Gastro-esophageal reflux disease without esophagitis
CPT/HCPCS: 36415; 51702; 70450; 71045; 71260; 72125; 74177; 80048; 80053; 80076; 81003; 82550; 82553; 83690; 83735 ×2; 83880; 84100; 84145; 84484; 85025 ×2; 85610; 85730; 92526; 93005; 93306; 93970; 94640; 94760 ×4; 96360; 96361; 96372; 99285; G0378 ×2; J1650; J3475; J7030; J7605 ×2; Q9967; J7512

== ENCOUNTER 2017-09-24 11:18 | Emergency (ER) | payer OTHER, MEDICARE ==
[2017-09-24] MEDS ORDERED: NA CHLORIDE 0.9% 2,000 ML ONE (11:43)
[2017-09-24 12:13] LABS: Absolute Lymphocytes (CBC) 1.7 K/uL (0.7-4.9); Absolute Monocytes 0.7 K/uL (0.1-1.3); Absolute Neutrophil 5.8 K/uL (1.8-8.0); Hematocrit 39.9 % (39.6-49.0); Lymphocytes % 19.9 % (15.3-44.8); MCH 27.9 pg (27.0-35.0); MCV 84.9 fL (80-100); Monocytes % 7.7 % (3.3-12.3)
[2017-09-24 12:31] LABS: Potassium 4.1 mEq/L (3.6-5.0)
[2017-09-24 12:37] LABS: Albumin 3.1 g/dL (3.2-5.5); Bilirubin Direct 0.1 mg/dL (0-0.2); Bilirubin Total 0.5 mg/dL (0.3-1.2); Magnesium 1.9 mg/dL (1.8-2.5); Protein, Total 6.6 g/dL (6.0-8.3)
--- NOTE | 2017-09-24 13:30 | RAD REPORT ---
EXAM DESCRIPTION: CT - Chest For Pe Angio - 09/24/2017 1:00 pm CLINICAL HISTORY: Chest pain, shortness of breath COMPARISON: CT chest September 08 TECHNIQUE: Dynamically enhanced 3 mm thick images of the chest were obtained during administration o f approximately 150mL Isovue 370 IV contrast. Coronal and oblique reconstruction images were generate d and reviewed. Exam utilizes a protocol to evaluate the pulmonary arterial tree. All CT scans are performed using dose optimization technique as appropriate and may include automated exposure control or mA/KV adjustment according to patient size. FINDINGS: No acute pulmonary emboli identified. The multi lobar pulmonary emboli seen September 08 have f ully or almost fully resolved. No propagation. Far peripheral branch assessment is limited somewhat b y motion. Small right pleural effusion and right lower lobe atelectasis have not improved. No new or progressive lung parenchymal process identifiable. The aorta as imaged shows no acute or suspicious finding. No pericardial thickening or effusion. No pneumothorax. No pleural based mass. No new mediastinal or hilar mass or lymphadenopathy. Large hiatal hernia is again identified. No ches t wall masses or abnormal axillary lymphadenopathy. IMPRESSION: No new pulmonary emboli any emboli seen September 08 have resolved or nearly fully resolved. Small right pleural effusion and atelectasis have not changed since September 08. No new or progressive lung parenchymal process identifiable. No other significant or suspicious findings.
--- NOTE | 2017-09-24 13:51 | RAD REPORT ---
EXAM DESCRIPTION: RAD - Chest Single View - 09/24/2017 1:15 pm CLINICAL HISTORY: Chest pain COMPARISON: September 08 TECHNIQUE: AP portable chest image was obtained 1220 hours . FINDINGS: Low lung volumes noted. Patient has chronic interstitial lung disease that could mask evette y interstitial edema or infiltrate. No peripheral mass or consolidation. No significant failure or vo lume overload suspected. Heart and vasculature are normal. No pneumothorax or large pleural effusion. No gross bony abnormality seen. Aorta is tortuous. No acute aortic finding suspected. IMPRESSION: No acute cardiopulmonary process. Chronic interstitial lung disease could mask early interstitial edema or infiltrate.
--- NOTE | 2017-09-24 13:53 | RAD REPORT ---
EXAM DESCRIPTION: VAS - Extrem Venous W Compress Zeb - 09/24/2017 12:51 pm CLINICAL HISTORY: Shortness of breath, leg DVT COMPARISON: Ultrasound September 08 TECHNIQUE: Real-time sonographic evaluation of the bilateral lower extremity deep venous systems was performed. FINDINGS: Thrombus is still present in the superficial femoral and popliteal veins. Right common fem oral vein remains clear. Posterior tibial vein has resolved or partially resolved. No evidence for pr opagation of the DVT. IMPRESSION: Extensive thrombus remains in the right superficial femoral and popliteal veins. There h as been partial clearing of the posterior tibial vein. No evidence for DVT propagation.
[2017-09-24 14:08] LABS: Urine Blood NEGATIVE (NEG); Urine Glucose NEGATIVE (NEG); Urine Protein NEGATIVE (NEG)
[2017-09-24 14:15] LABS: Protime INR 1.37
[2017-09-24 15:30] LABS: CKMB Creatine Kinase MB 1.3 ng/ml (0.3-4.0)
--- NOTE | 2017-09-24 17:50 | EDPHYS ---
Physician Documentation [facility] Name: Linsey Mcdonnell Age: 82 yrs Sex: Male : 1935 Arrival Date: 09/24/2017 Time: 11:[address] Private MD: Hermilo Ellsworth ED Physician Damien Waters HPI: 09/25 10:30 This 82 yrs old Male presents to ER via EMS with complaints of Shortness Of kdr Breath, Chest Pain > 30 y/o. 10:31 The patient or guardian reports chest pain that is located primarily in the substernal kdr area, anterior chest wall, bilaterally. Onset: just prior to arrival. The pain does not radiate. Associated signs and symptoms: Pertinent positives: shortness of breath, Pertinent negatives: abdominal pain, cough, diaphoresis, dizziness, headache, lower extremity pain, lower extremity swelling, lightheadedness, nausea, near syncope, palpitations, recent travel, syncope, vomiting, The patient was recently diagnosed with PE and is on Xerelto. The chest pain is described as aching, dull. Duration: The patient or guardian reports a single episode, that is still ongoing, and unchanged. Modifying factors: The symptoms are alleviated by nothing. the symptoms are aggravated by nothing. Severity of pain: At its worst the pain was mild in the emergency department the pain is unchanged. The patient has not experienced similar symptoms in the past. The patient has been recently seen by a physician: As noted above with regard to PE. Historical: - Allergies: 09/24 11:34 NKA; ae1 - Home Meds: 11:34 linaclotide oral oral [Active]; prednisone 10 mg Oral tab 1 tab once daily [Active]; rv Eliquis 5 mg oral tab 2 tabs 2 times per day [Active]; pantoprazole 40 mg oral TbEC 1 tab once daily [Active]; oxybutynin chloride 5 mg Oral tab 1 tab 2 times per day [Active]; 11:34 albuterol sulfate 0.63 mg/3 mL Inhl nebu every 6 hours [Active]; budesonide 0.5 mg/2 mL ae1 inhalation nbsp 2 mL 2 times per day [Active]; Claritin 10 mg Oral tab 1 tab once daily [Active]; omeprazole 40 mg Oral cpDR 1 cap once daily [Active]; oxybutynin chloride 5 mg Oral tab 1 tab 2 times per day [Active]; Singulair 10 mg Oral tab 1 tab once daily [Active]; - PMHx: 11:34 allergies; BLIND; Bronchitis; COPD; Dementia; GERD; impaction; ae1 - Immunization history:: Flu vaccine is up to date. - Social history:: Smoking status: Patient/guardian denies using tobacco. - Ebola Screening: : Patient negative for fever greater than or equal to 101.5 degrees Fahrenheit, and additional compatible Ebola Virus Disease symptoms. ROS: 09/25 10:31 Constitutional: Negative for fever, chills, and weight loss, Eyes: Negative for injury, kdr pain, redness, and discharge, ENT: Negative for injury, pain, and discharge, Neck: Negative for injury, pain, and swelling, Abdomen/GI: Negative for abdominal pain, nausea, vomiting, diarrhea, and constipation, Back: Negative for injury and pain, : Negative for injury, bleeding, discharge, and swelling, MS/Extremity: Negative for injury and deformity, Skin: Negative for injury, rash, and discoloration, Neuro: Negative for headache, weakness, numbness, tingling, and seizure activity. Psych: Negative for depression, anxiety, suicide ideation, homicidal ideation, and hallucinations, Allergy/Immunology: Negative for hives, rash, and allergies, Endocrine: Negative for neck swelling, polydipsia, polyuria, polyphagia, and marked weight changes, Hematologic/Lymphatic: Negative for swollen nodes, abnormal bleeding, and unusual bruising. Cardiovascular: Positive for chest pain, Negative for edema, orthopnea, palpitations, paroxysmal nocturnal dyspnea. Respiratory: Positive for shortness of breath, Negative for cough, hemoptysis, orthopnea, pleurisy, sputum production, wheezing. Exam: 10:31 Constitutional: This is a well developed, well nourished patient who is awake, alert, kdr and in no acute distress. Head/Face: Normocephalic, atraumatic. Eyes: Pupils equal round and reactive to light, extra-ocular motions intact. Lids and lashes normal. Conjunctiva and sclera are non-icteric and not injected. Cornea within normal limits. Periorbital areas with no swelling, redness, or edema. Neck: Trachea midline, no thyromegaly or masses palpated, and no cervical lymphadenopathy. Supple, full range of motion without nuchal rigidity, or vertebral point tenderness. No Meningismus. Chest/axilla: Normal chest wall appearance and motion. Nontender with no deformity. No lesions are appreciated. Cardiovascular: Regular rate and rhythm with a normal S1 and S2. No gallops, murmurs, or rubs. Normal PMI, no JVD. No pulse deficits. Respiratory: Lungs have equal breath sounds bilaterally, clear to auscultation and percussion. No rales, rhonchi or wheezes noted. No increased work of breathing, no retractions or nasal flaring. Abdomen/GI: Soft, non-tender, with normal bowel sounds. No distension or tympany. No guarding or rebound. No evidence of tenderness throughout. Back: No spinal tenderness. No costovertebral tenderness. Full range of motion. Skin: Warm, dry with normal turgor. Normal color with no rashes, no lesions, and no evidence of cellulitis. MS/ Extremity: Pulses equal, no cyanosis. Neurovascular intact. Full, normal range of motion. Neuro: Awake and alert, GCS 15, oriented to person, place, time, and situation. Cranial nerves II-XII grossly intact. Motor strength 5/5 in all extremities. Sensory grossly intact. Psych: Awake, alert, with orientation to person, place and time. Behavior, mood, and affect are within normal limits. Vital Signs: 09/24 11:28 BP 108 / 73; Pulse 82; Resp 16; Temp 97.8(O); Pulse Ox 99% on 3 lpm NC; ae1 11:48 BP 107 / 73; Pulse 77; Resp 20; Pulse Ox 97% on 3 lpm NC; ae1 12:01 Weight 81.65 kg (R); ae1 13:45 BP 121 / 84; Pulse 70; Resp 18; Pulse Ox 100% on 3 lpm NC; kr2 15:00 BP 108 / 69; Pulse 64; Resp 19; Pulse Ox 96% on R/A; kr2 16:19 BP 117 / 77; Pulse 72; Resp 18; Pulse Ox 98% on R/A; kr2 17:47 BP 127 / 84; Pulse 64; Resp 16; Pulse Ox 96% on R/A; [facility] MDM: 17:49 Patient medically screened. kdr 09/25 10:31 Data reviewed: vital signs, nurses notes, lab test result(s), EKG, radiologic studies. kdr Counseling: I had a detailed discussion with the patient and/or guardian regarding: the historical points, exam findings, and any diagnostic results supporting the discharge/admit diagnosis, lab results, radiology results, the need for outpatient follow up. 09/24 12:02 Order name: Basic Metabolic Panel; Complete Time: 15:45 09/24 12:02 Order name: BNP; Complete Time: 15:45 09/24 12:02 Order name: CBC with Diff; Complete Time: 13:47 09/24 12:02 Order name: Ckmb; Complete Time: 15:45 09/24 12:02 Order name: CPK; Complete Time: 15:45 09/24 12:02 Order name: LFT's; Complete Time: 15:45 09/24 12:02 Order name: Magnesium; Complete Time: 15:45 09/24 12:02 Order name: PT-INR; Complete Time: 14:34 09/24 12:02 Order name: Ptt, Activated; Complete Time: 14:34 09/24 12:02 Order name: Troponin (emerg Dept Use Only); Complete Time: 15:45 09/24 12:02 Order name: XRAY Chest (1 view); Complete Time: 14:34 09/24 12:17 Order name: US Extremity Venous W Compression Zeb; Complete Time: 14:34 kdr 09/24 13:21 Order name: Urine Dipstick--Ancillary (enter results); Complete Time: 14:34 bd 09/24 15:46 Order name: Troponin (emerg Dept Use Only); Complete Time: 17:48 kdr 09/24 12:02 Order name: EKG; Complete Time: 12:03 09/24 12:02 Order name: Cardiac monitoring; Complete Time: 12:02 09/24 12:02 Order name: EKG - Nurse/Tech; Complete Time: 12:02 09/24 12:02 Order name: IV Saline Lock; Complete Time: 12:02 09/24 12:02 Order name: Labs collected and sent; Complete Time: 12:02 09/24 12:02 Order name: O2 Per Protocol; Complete Time: 12:02 tw2 09/24 12:02 Order name: O2 Sat Monitoring; Complete Time: 12:02 tw2 09/24 12:02 Order name: Urine Dipstick-Ancillary (obtain specimen); Complete Time: 12:31 tw2 09/24 12:17 Order name: CT Chest For PE Angio; Complete Time: 13:47 kdr 09/24 12:39 Order name: Labs - recollect needed; Complete Time: 13:41 bd Administered Medications: 09/24 11:47 Drug: NS 0.9% 1000 ml Route: IV; Rate: 1000 ml; Site: right antecubital; ae1 18:41 Follow up: Response: No adverse reaction; IV Status: Completed infusion kr2 11:47 Drug: NS 0.9% 1000 ml Route: IV; Rate: 1 bolus; Site: right antecubital; ae1 18:41 Follow up: Response: No adverse reaction; IV Status: Completed infusion kr2 Disposition: 09/24/17 17:49 Discharged to Home. Impression: Chest pain, unspecified, Shortness of breath. - Condition is Stable. - Discharge Instructions: Shortness of Breath, [id number], Nonspecific Chest Pain, [id number]. - Medication Reconciliation Form, Thank You Letter form. - Follow up: Hermilo Ellsworth MD; When: 2 - 3 days; Reason: If symptoms return, Further diagnostic work-up, Recheck today's complaints, Continuance of care, Re-evaluation by your physician. - Problem is new. - Symptoms have improved. Signatures: Dispatcher [employer] EDMS Kim Whalen Kevin, MD MD kdr Wise, Tara RN RN tw2 Clovis Samson RN RN ae1 Raisa Yin, RN RN kr2 Yinka Mcarthur, RN RN rv Corrections: (The following items were deleted from the chart) 18:44 17:49 09/24/2017 17:49 Discharged to Home. Impression: Chest pain, unspecified; kr2 Shortness of breath. Condition is Stable. Forms are Medication Reconciliation Form, Thank You Letter, Antibiotic Education, Prescription Opioid Use. Follow up: Herimlo Ellwsorth; When: 2 - 3 days; Reason: If symptoms return, Further diagnostic work-up, Recheck today's complaints, Continuance of care, Re-evaluation by your physician. Problem is new. Symptoms have improved. kdr
--- NOTE | 2017-09-24 17:50 | ER ---
Nurse's Notes [facility] Name: Linsey Mcdonnell Age: 82 yrs Sex: Male : 1935 Arrival Date: 09/24/2017 Time: 11:[address] Private MD: Hermilo Ellsworth Diagnosis: Chest pain, unspecified;Shortness of breath Presentation: 09/24 11:30 Presenting complaint: EMS states: Patient report chest pain and shortness of breath ae1 since the previous evening. Patient was admitted here approx 3 weeks ago with a dx of DANK pulmonary emboli. Transition of care: patient was not received from another setting of care. Onset of symptoms was September 24, 2017. Risk Assessment: Do you want to hurt yourself or someone else? Patient reports no desire to harm self or others. Care prior to arrival: Medication(s) given: ASA, 81 mg, x 4, Normal saline infusion, 200 mls infused from the liter so far. Nitroglycerin, 0.4 mg SL x 1, IV initiated. 20 GA, in the right wrist. 11:30 Method Of Arrival: EMS: [facility] ae1 11:30 Acuity: GILMAR 3 ae1 12:17 Initial Sepsis Screen: Does the patient meet any 2 criteria? No. Patient's initial ae1 sepsis screen is negative. Does the patient have a suspected source of infection? No. Patient's initial sepsis screen is negative. Triage Assessment: 11:37 General: Appears in no apparent distress. comfortable, Behavior is calm, cooperative. ae1 Respiratory: Onset: The symptoms/episode began/occurred gradually, the patient has mild shortness of breath. Historical: - Allergies: 11:34 NKA; ae1 - Home Meds: 11:34 linaclotide oral oral [Active]; prednisone 10 mg Oral tab 1 tab once daily [Active]; rv Eliquis 5 mg oral tab 2 tabs 2 times per day [Active]; pantoprazole 40 mg oral TbEC 1 tab once daily [Active]; oxybutynin chloride 5 mg Oral tab 1 tab 2 times per day [Active]; 11:34 albuterol sulfate 0.63 mg/3 mL Inhl nebu every 6 hours [Active]; budesonide 0.5 mg/2 mL ae1 inhalation nbsp 2 mL 2 times per day [Active]; Claritin 10 mg Oral tab 1 tab once daily [Active]; omeprazole 40 mg Oral cpDR 1 cap once daily [Active]; oxybutynin chloride 5 mg Oral tab 1 tab 2 times per day [Active]; Singulair 10 mg Oral tab 1 tab once daily [Active]; - PMHx: 11:34 allergies; BLIND; Bronchitis; COPD; Dementia; GERD; impaction; ae1 - Immunization history:: Flu vaccine is up to date. - Social history:: Smoking status: Patient/guardian denies using tobacco. - Ebola Screening: : Patient negative for fever greater than or equal to 101.5 degrees Fahrenheit, and additional compatible Ebola Virus Disease symptoms. Screenin:17 Abuse screen: Denies threats or abuse. Nutritional screening: No deficits noted. ae1 Tuberculosis screening: Never had TB. Possible symptoms: None. Fall Risk Ambulatory Aid- Crutches/Cane/Walker (15 pts). Assessment: 11:35 Pain: Complains of pain in chest. Pain: Pain currently is 5 out of 10 on a pain scale. ae1 Neuro: Level of Consciousness is awake, alert, obeys commands, Oriented to person, place, situation. Cardiovascular: Patient's skin is warm and dry. Rhythm is regular. Respiratory: Airway is patent Respiratory effort is even, unlabored, Respiratory pattern is regular, symmetrical, Breath sounds are diminished in right middle lobe and right lower lobe. Respiratory: Reports shortness of breath at rest. GI: No signs and/or symptoms were reported involving the gastrointestinal system. : No signs and/or symptoms were reported regarding the genitourinary system. EENT: Patient is blind, and [place], has DANK hearing aids . Derm: Skin is pale. Musculoskeletal: Reports Generalized weakness. 13:44 Reassessment: Patient appears in no apparent distress at this time. Patient and/or kr2 family updated on plan of care and expected duration. Pain level reassessed. Patient is alert, oriented x 3, equal unlabored respirations, skin warm/dry/pink. Assisted up to bedside to use urinal without difficulty. 15:00 Reassessment: Patient appears in no apparent distress at this time. Patient and/or kr2 family updated on plan of care and expected duration. Pain level reassessed. Patient is alert, oriented x 3, equal unlabored respirations, skin warm/dry/pink. 16:17 Reassessment: Patient appears in no apparent distress at this time. Patient and/or kr2 family updated on plan of care and expected duration. Pain level reassessed. Patient is alert, oriented x 3, equal unlabored respirations, skin warm/dry/pink. Patient provided with fruit cup and crackers after checking with Dr. Waters. Patient denies pain at this time. 17:30 Reassessment: Patient appears in no apparent distress at this time. Patient and/or kr2 family updated on plan of care and expected duration. Pain level reassessed. Patient is alert, oriented x 3, equal unlabored respirations, skin warm/dry/pink. Patient denies pain at this time. 18:30 Reassessment: Patient appears in no apparent distress at this time. Patient and/or kr2 family updated on plan of care and expected duration. Pain level reassessed. Patient is alert, oriented x 3, equal unlabored respirations, skin warm/dry/pink. Patient denies pain at this time. Vital Signs: 11:28 BP 108 / 73; Pulse 82; Resp 16; Temp 97.8(O); Pulse Ox 99% on 3 lpm NC; ae1 11:48 BP 107 / 73; Pulse 77; Resp 20; Pulse Ox 97% on 3 lpm NC; ae1 12:01 Weight 81.65 kg (R); ae1 13:45 BP 121 / 84; Pulse 70; Resp 18; Pulse Ox 100% on 3 lpm NC; kr2 15:00 BP 108 / 69; Pulse 64; Resp 19; Pulse Ox 96% on R/A; kr2 16:19 BP 117 / 77; Pulse 72; Resp 18; Pulse Ox 98% on R/A; kr2 17:47 BP 127 / 84; Pulse 64; Resp 16; Pulse Ox 96% on R/A; mh5 ED Course: 11:21 EKG done, by dentures lab technician. reviewed by Damien Waters MD. sm3 11:22 Patient arrived in ED. tw2 11:24 Damien Waters MD is Attending Physician. kdr 11:28 Clovis Samson, MERLENE is Primary Nurse. ae1 11:30 Inserted saline lock: 20 gauge in right antecubital area, using aseptic technique. rv 11:33 Triage completed. ae1 11:37 Arm band placed on right wrist. EKG completed in triage. Results shown to MD. ae1 11:37 Placed in gown. Bed in low position. Call light in reach. Side rails up X2. Cardiac ae1 monitor on. Pulse ox on. NIBP on. Warm blanket given. 12:22 X-ray completed. Portable x-ray completed in exam room. Patient tolerated procedure kp1 well. 12:23 Hermilo Ellsworth MD is Private Physician. sb2 12:24 XRAY Chest (1 view) In Process Unspecified. EDMS 12:40 US Extremity Venous W Compression Dank In Process Unspecified. EDMS 12:59 CT completed. Patient tolerated procedure well. Patient moved to CT via stretcher. Patient moved back from CT. 13:01 CT Chest For PE Angio In Process Unspecified. EDMS 13:40 Lab(s) recollected, by me, sent to lab. mh5 17:48 Hermilo Ellsworth MD is Referral Physician. kdr 18:41 No provider procedures requiring assistance completed. IV discontinued, intact, kr2 bleeding controlled, No redness/swelling at site. Pressure dressing applied. Administered Medications: 11:47 Drug: NS 0.9% 1000 ml Route: IV; Rate: 1000 ml; Site: right antecubital; ae1 18:41 Follow up: Response: No adverse reaction; IV Status: Completed infusion kr2 11:47 Drug: NS 0.9% 1000 ml Route: IV; Rate: 1 bolus; Site: right antecubital; ae1 18:41 Follow up: Response: No adverse reaction; IV Status: Completed infusion kr2 Outcome: 17:49 Discharge ordered by . kdr 18:42 Discharged to home via wheelchair, with family. kr2 18:42 Condition: good 18:42 Discharge instructions given to patient, family, Instructed on discharge instructions, follow up and referral plans. Demonstrated understanding of instructions, follow-up care. 18:44 Patient left the ED. kr2 Signatures: Dispatcher [employer] EDSC Damien Waters MD MD kdr Jones, Susan sj Wise, Tara, RN RN tw2 Clovis Samson RN RN ae1 Wendy Ahn mh5 Rhoda Mclaughlin kp1 Raisa Yin RN RN kr2 Deanna Forte 2 Julisa Ferrari [facility] Yinka Mcarthur, RN RN rv Corrections: (The following items were deleted from the chart) 18:43 16:19 BP 117 / 77; Pulse 72bpm; Resp 18bpm; Pulse Ox 98% 3 lpm Nasal Cannula; kr2 kr2 18:43 15:00 BP 108 / 69; Pulse 64bpm; Resp 19bpm; Pulse Ox 96% 3 lpm Nasal Cannula; kr2 kr2
--- NOTE | 2017-09-25 06:58 | EKG ---
Test Date: 2017-09-24 Test Time: 11:21:17 Belt Builder Helper: CARI MEASUREMENT RESULTS: Intervals: Rate: 87 CA: 192 QRSD: 94 QT: 356 QTc: 428 [place]: P: 31 CA: 192 QRS: 7 T: 37 INTERPRETIVE STATEMENTS: Normal sinus rhythm Normal ECG Compared to ECG 09/08/2017 06:20:54 No significant changes Electronically Signed On 09-25-17 06:55:37 CDT by Delmer Luu
== END 2017-09-24 18:44 | disposition home or self-care (01) ==
LOC: ER 11:18
DX: R07.9 Chest pain, unspecified (principal); R06.02 Shortness of breath; J44.9 Chronic obstructive pulmonary disease, unspecified; F03.90 Unspecified dementia, unspecified severity, without behavioral disturbance, psychotic disturbance, mood disturbance, and anxiety; Z79.02 Long term (current) use of antithrombotics/antiplatelets
CPT/HCPCS: 36415; 71045; 71275; 80048; 80076; 81003; 82550; 82553; 83735; 83880; 84484 ×2; 85025; 85610; 85730; 93005; 93970; 96360; 96361; 99285; J7030; Q9967

== ENCOUNTER 2019-01-11 14:47 | Emergency (ER) | payer OTHER, MEDICARE ==
[2019-01-11] MEDS ORDERED: NA CHLORIDE 0.9% 1,000 ML ONE (15:48)
[2019-01-11] MEDS ORDERED: MORPHINE 4 MG/ML SYR ONE (15:48)
[2019-01-11 15:56] LABS: Absolute Lymphocytes (CBC) 0.8 K/uL (0.7-4.9); Basophils % 0.4 % (0-1.3); Hematocrit 44.1 % (39.6-49.0); Lymphocytes % 8.4 % (15.3-44.8); RBC Red Blood Cell Count 4.89 M/uL (4.33-5.43)
[2019-01-11] MEDS ORDERED: ONDANSETRON 4 MG/2 ML VIAL ONE (15:59)
[2019-01-11 16:16] LABS: Albumin 3.7 g/dL (3.4-5.0); Bilirubin Direct 0.2 mg/dL (0-0.2); Bilirubin Total 0.6 mg/dL (0.2-1.0); Potassium 3.9 mmol/L (3.5-5.1); Protein, Total 7.5 g/dL (6.4-8.2)
[2019-01-11 16:24] LABS: Blood Morphology Comment NOT SEEN (NOT SEEN); Platelet Estimate ADEQ; Urine White Blood Cell Casts OK
[2019-01-11] MEDS ORDERED: GLYCERIN ADULT SUPP PR ONE (17:00)
--- NOTE | 2019-01-11 18:04 | RAD REPORT ---
EXAM DESCRIPTION: CT - Abdomen Pelvis W Contrast - 01/11/2019 5:47 pm CLINICAL HISTORY: Abdominal pain. COMPARISON: 2018 TECHNIQUE: Computed axial tomography of the abdomen and pelvis was obtained. 100 cc Isovue-300 is ad ministered intravenously. Oral contrast was given. All CT scans are performed using dose optimization technique as appropriate and may include automated exposure control or mA/KV adjustment according to patient size. FINDINGS: Large hiatal hernia The liver, spleen, pancreas, adrenals and kidneys appear unremarkable. The rectum is distended with stool measuring 6.8 centimeters. A moderate amount stool is present with in the colon. No diverticulitis. IMPRESSION: Rectum is distended with stool
--- NOTE | 2019-01-11 18:35 | ER ---
Nurse's Notes [facility] Name: Linsey Mcdonnell Age: 83 yrs Sex: Male : 1935 Arrival Date: 01/11/2019 Time: 14:51 Bed 6 Private MD: Diagnosis: Constipation Presentation: 01/11 14:57 Presenting complaint: Patient states: I have not been able to poop in I dont even know la1 how long. having a lot of rectal pressure. Transition of care: patient was not received from another setting of care. Onset of symptoms was January 11, 2019. Risk Assessment: Do you want to hurt yourself or someone else? Patient reports no desire to harm self or others. Initial Sepsis Screen: Does the patient meet any 2 criteria? No. Patient's initial sepsis screen is negative. Does the patient have a suspected source of infection? No. Patient's initial sepsis screen is negative. Care prior to arrival: None. 14:57 Method Of Arrival: Ambulatory la1 14:57 Acuity: GILMAR 3 la1 Historical: - Allergies: 14:58 NKA; la1 - PMHx: 14:58 allergies; BLIND; Bronchitis; COPD; Dementia; GERD; impaction; la1 - PSHx: 19:07 Hernia repair; ROTO ROOTER; Appendectomy; rv - Immunization history:: Adult Immunizations up to date. - Social history:: Smoking status: Patient/guardian denies using tobacco. - Ebola Screening: : No symptoms or risks identified at this time. Screenin:14 Abuse screen: Denies threats or abuse. Denies injuries from another. Nutritional rv screening: No deficits noted. Tuberculosis screening: No symptoms or risk factors identified. Fall Risk No fall in past 12 months (0 pts). Secondary diagnosis (15 points) dementia, BLIND. No IV (0 pts). Ambulatory Aid- Crutches/Cane/Walker (15 pts). Gait- Weak (10 pts.). Mental Status- Overestimates/Forgets Limitations (15 pts.). Total Pitts Fall Scale indicates High Risk Score (45 or more points). Fall prevention measures have been instituted. Side Rails Up X 2 Placed Close to Nursing Station Frequent Obs/Assessments Occuring Family Present and informed to notify staff if the need to leave the bedside As available patient and family educated on Fall Prevention Program and Strategies. Assessment: 15:13 General: Appears in no apparent distress. uncomfortable, Behavior is calm, cooperative. rv Pain: Complains of pain in RECTUM. Neuro: Level of Consciousness is awake, alert, obeys commands, Oriented to person, place, time, situation. Cardiovascular: Patient's skin is warm and dry. Respiratory: Airway is patent. GI: Bowel sounds present X 4 quads. Abd is soft and non tender X 4 quads. GI: Reports constipation. : No signs and/or symptoms were reported regarding the genitourinary system. EENT: No signs and/or symptoms were reported regarding the EENT system. Derm: Skin is intact. Musculoskeletal: No signs and/or symptoms reported regarding the musculoskeletal system. 15:58 Reassessment: Pt finished CT oral contrast, CT notified. . aa5 19:05 Reassessment: GAUDENCIO DID MANUAL EVACUATION OF STOOL AT BEDSIDE. PATIENT WAS RELIEVED rv AND ABLE TO MOVE BOWEL AFTER. Vital Signs: 14:58 BP 121 / 68; Pulse 74; Resp 16; Temp 97.8; Pulse Ox 100% on R/A; Weight 81.65 kg; la1 Height 5 ft. 7 in. (170.18 cm); 15:20 BP 155 / 73; Pulse 82; Resp 18; Pulse Ox 100% on R/A; aa5 16:52 BP 124 / 42; Pulse 65; Resp 18; Pulse Ox 99% on R/A; rv 19:06 BP 127 / 66; Pulse 68; Resp 16; Pulse Ox 100% on R/A; rv 14:58 Body Mass Index 28.19 (81.65 kg, 170.18 cm) la1 ED Course: 14:51 Patient arrived in ED. mr 14:57 Triage completed. la1 14:58 Arm band placed on right wrist. la1 15:05 Gaudencio Loomis, SEB is PHCP. pm1 15:05 Vinh Laureano MD is Attending Physician. pm1 15:07 Yinka Mcarthur, MERLENE is Primary Nurse. rv 15:15 Patient has correct armband on for positive identification. Bed in low position. Call rv light in reach. Side rails up X2. Adult w/ patient. Pulse ox on. NIBP on. 15:54 Initial lab(s) drawn, by me, sent to lab. Inserted saline lock: 22 gauge in right rv forearm, using aseptic technique. Blood collected. 17:49 CT Abd/Pelvis - PO and IV Contrast In Process Unspecified. EDMS 19:08 No provider procedures requiring assistance completed. IV discontinued, intact, rv bleeding controlled, No redness/swelling at site. Pressure dressing applied. Administered Medications: 15:54 Drug: NS 0.9% 1000 ml Route: IV; Rate: 1000 ml; Site: right forearm; rv 16:46 Follow up: IV Status: Completed infusion; IV Intake: 1000ml rv 15:55 Drug: morphine 4 mg Route: IVP; Site: right forearm; rv 15:55 Follow up: Response: RASS: Restless (+1) rv 16:46 Follow up: Response: Pain is unchanged, physician notified; RASS: Alert and Calm (0) rv 15:59 Drug: Zofran 4 mg {Note: given iv.} Route: IM; Site: Other; rv 16:46 Follow up: Response: No adverse reaction rv 16:45 Drug: Glycerin (Adult) Suppository 1 supp Route: MN; rv 19:08 Follow up: Response: No adverse reaction rv Intake: 16:46 IV: 1000ml; Total: 1000ml. rv Outcome: 18:34 Discharge ordered by MD. pm1 19:08 Discharged to home ambulatory, with family. rv 19:08 Condition: improved 19:08 Discharge instructions given to patient, family, Instructed on discharge instructions, follow up and referral plans. medication usage, Demonstrated understanding of instructions, follow-up care, medications, Prescriptions given X 1. 19:08 Patient left the ED. rv Signatures: Dispatcher [employer] [facility] Jones Lia Jean CarlosGalilea, RN RN aa5 Femi Ramirez RN RN la1 Gaudencio Loomis, REHABILITATION PSYCHOLOGIST REHABILITATION PSYCHOLOGIST pm1 Yinka Mcarthur RN RN rv
--- NOTE | 2019-01-11 18:36 | EDPHYS ---
Physician Documentation [facility] Name: Linsey Mcdonnell Age: 83 yrs Sex: Male : 1935 Arrival Date: 01/11/2019 Time: 14:51 Bed 6 Private MD: ED Physician Vinh Laureano HPI: 01/11 17:05 This 83 yrs old Male presents to ER via Ambulatory with complaints of pm1 Constipation. 17:05 The patient presents with constipation. Onset: The symptoms/episode began/occurred at pm1 an unknown time. Associated signs and symptoms: Pertinent positives: abdominal and rectal pain, Pertinent negatives: chest pain, dysuria, fever, shortness of breath. The symptoms are described as achy, crampy. Modifying factors: The symptoms are alleviated by nothing, the symptoms are aggravated by nothing. Severity of pain: in the emergency department the pain is actually worse. The patient has experienced similar episodes in the past, multiple times. The patient has not recently seen a physician. Historical: - Allergies: 14:58 NKA; la1 - PMHx: 14:58 allergies; BLIND; Bronchitis; COPD; Dementia; GERD; impaction; la1 - PSHx: 19:07 Hernia repair; ROTO ROOTER; Appendectomy; rv - Immunization history:: Adult Immunizations up to date. - Social history:: Smoking status: Patient/guardian denies using tobacco. - Ebola Screening: : No symptoms or risks identified at this time. ROS: 17:05 Constitutional: Negative for fever, chills, and weight loss, Eyes: Negative for injury, pm1 pain, redness, and discharge, ENT: Negative for injury, pain, and discharge, Neck: Negative for injury, pain, and swelling, Cardiovascular: Negative for chest pain, palpitations, and edema, Respiratory: Negative for shortness of breath, cough, wheezing, and pleuritic chest pain. 17:05 Back: Negative for injury and pain, : Negative for injury, bleeding, discharge, and swelling, MS/Extremity: Negative for injury and deformity, Skin: Negative for injury, rash, and discoloration, Neuro: Negative for headache, weakness, numbness, tingling, and seizure. 17:05 Abdomen/GI: Positive for abdominal pain, constipation, Negative for nausea, vomiting, and diarrhea. Exam: 17:05 Constitutional: This is a well developed, well nourished patient who is awake, alert, pm1 and in no acute distress. Head/Face: Normocephalic, atraumatic. Neck: Trachea midline, no thyromegaly or masses palpated, and no cervical lymphadenopathy. Supple, full range of motion without nuchal rigidity, or vertebral point tenderness. No Meningismus. Chest/axilla: Normal chest wall appearance and motion. Nontender with no deformity. No lesions are appreciated. Cardiovascular: Regular rate and rhythm with a normal S1 and S2. No gallops, murmurs, or rubs. Normal PMI, no JVD. No pulse deficits. Respiratory: Lungs have equal breath sounds bilaterally, clear to auscultation and percussion. No rales, rhonchi or wheezes noted. No increased work of breathing, no retractions or nasal flaring. 17:05 Back: No spinal tenderness. No costovertebral tenderness. Full range of motion. Skin: Warm, dry with normal turgor. Normal color with no rashes, no lesions, and no evidence of cellulitis. MS/ Extremity: Pulses equal, no cyanosis. Neurovascular intact. Full, normal range of motion. 17:05 Abdomen/GI: Inspection: abdomen appears normal, Bowel sounds: normal, Palpation: soft, mild abdominal tenderness, in the abdomen diffusely, mass, is not appreciated, rebound tenderness, is not appreciated. 17:05 Neuro: Orientation: is normal, Motor: moves all fours. Vital Signs: 14:58 BP 121 / 68; Pulse 74; Resp 16; Temp 97.8; Pulse Ox 100% on R/A; Weight 81.65 kg; la1 Height 5 ft. 7 in. (170.18 cm); 15:20 BP 155 / 73; Pulse 82; Resp 18; Pulse Ox 100% on R/A; aa5 16:52 BP 124 / 42; Pulse 65; Resp 18; Pulse Ox 99% on R/A; rv 19:06 BP 127 / 66; Pulse 68; Resp 16; Pulse Ox 100% on R/A; rv 14:58 Body Mass Index 28.19 (81.65 kg, 170.18 cm) la1 Procedures: 18:02 Fecal disimpaction: digital disimpaction was performed, with a large amount of stool pm1 expressed. The patient tolerated the intervention well. MDM: 15:29 Patient medically screened. pm1 18:33 Data reviewed: vital signs. Data interpreted: Pulse oximetry: on room air is 99 %. pm1 Interpretation: normal. Counseling: I had a detailed discussion with the patient and/or guardian regarding: the historical points, exam findings, and any diagnostic results supporting the discharge/admit diagnosis, lab results, radiology results, the need for outpatient follow up, to return to the emergency department if symptoms worsen or persist or if there are any questions or concerns that arise at home. 01/11 15:34 Order name: Basic Metabolic Panel; Complete Time: 16:29 pm1 01/11 15:34 Order name: CBC with Diff; Complete Time: 16:29 pm1 01/11 15:34 Order name: Creatinine for Radiology; Complete Time: 16:45 pm1 01/11 15:34 Order name: Hepatic Function; Complete Time: 16:29 pm1 01/11 15:34 Order name: CT Abd/Pelvis - PO and IV Contrast; Complete Time: 18:33 pm1 01/11 16:25 Order name: CBC Smear Scan; Complete Time: 16:29 EDMS 01/11 15:34 Order name: IV Saline Lock; Complete Time: 15:44 pm1 01/11 15:34 Order name: Labs collected and sent; Complete Time: 15:44 pm1 Administered Medications: 15:54 Drug: NS 0.9% 1000 ml Route: IV; Rate: 1000 ml; Site: right forearm; rv 16:46 Follow up: IV Status: Completed infusion; IV Intake: 1000ml rv 15:55 Drug: morphine 4 mg Route: IVP; Site: right forearm; rv 15:55 Follow up: Response: RASS: Restless (+1) rv 16:46 Follow up: Response: Pain is unchanged, physician notified; RASS: Alert and Calm (0) rv 15:59 Drug: Zofran 4 mg {Note: given iv.} Route: IM; Site: Other; rv 16:46 Follow up: Response: No adverse reaction rv 16:45 Drug: Glycerin (Adult) Suppository 1 supp Route: NV; rv 19:08 Follow up: Response: No adverse reaction rv Disposition: 01/11/19 18:34 Discharged to Home. Impression: Constipation. - Condition is Stable. - Discharge Instructions: Constipation, Adult. - Prescriptions for Lactulose 10 gram/15 mL Oral Solution - take 30 milliliters by ORAL route once daily As needed; 300 milliliter. - Medication Reconciliation Form, Thank You Letter, Antibiotic Education, Prescription Opioid Use form. - Follow up: Emergency Department; When: As needed; Reason: Worsening of condition. Follow up: Private Physician; When: 2 - 3 days; Reason: Recheck today's complaints, Continuance of care, Re-evaluation by your physician. - Problem is new. - Symptoms have improved. Addendum: 01/14/2019 07:01 Co-signature as Attending Physician, Vinh Laureano MD. r n Signatures: Dispatcher [employer] EDMS Vinh Laureano MD MD rn Femi Ramirez RN RN la1 Gaudencio Loomis NP METAL NEUTRALIZER pm1 Yinka Mcarthur RN RN rv Corrections: (The following items were deleted from the chart) 01/11 19:08 18:34 01/11/2019 18:34 Discharged to Home. Impression: Constipation. Condition is rv Stable. Discharge Instructions: Constipation, Adult. Prescriptions for Lactulose 10 gram/15 mL Oral Solution - take 30 milliliter by ORAL route once daily; 300 milliliter. and Forms are Medication Reconciliation Form, Thank You Letter, Antibiotic Education, Prescription Opioid Use. Follow up: Emergency Department; When: As needed; Reason: Worsening of condition. Follow up: Private Physician; When: 2 - 3 days; Reason: Recheck today's complaints, Continuance of care, Re-evaluation by your physician. Problem is new. Symptoms have improved. pm1
[2019-01-11 20:42] VITALS: TEMP 97.8
[2019-01-11 20:46] VITALS: BP 127/66; O2SAT 100
== END 2019-01-11 19:08 | disposition home or self-care (01) ==
LOC: ER 14:47
DX: K59.00 Constipation, unspecified (principal); H54.7 Unspecified visual loss
CPT/HCPCS: 85025; 80048; 36415; 80076; 74177; Q9967; J7030; J2405; 96361; 96372; 96374; 99284

== ENCOUNTER 2019-07-06 15:38 | Emergency (ER) | payer OTHER, MEDICARE ==
[2019-07-06] MEDS ORDERED: ONDANSETRON 4 MG/2 ML VIAL ONE (16:47)
[2019-07-06] MEDS ORDERED: FAMOTIDINE 20 MG/2 ML VIAL IV ONE (16:47)
[2019-07-06 17:00] LABS: Absolute Lymphocytes (CBC) 1.4 K/uL (0.7-4.9); Basophils % 0.6 % (0-1.3); Hematocrit 40.5 % (39.6-49.0); Lymphocytes % 15.1 % (15.3-44.8); MPV 8.2 fL (7.6-11.3); RBC Red Blood Cell Count 4.51 M/uL (4.33-5.43)
--- NOTE | 2019-07-06 17:02 | RAD REPORT ---
EXAM DESCRIPTION: Hector Single View07/06/2019 4:34 pm CLINICAL HISTORY: Abdominal pain COMPARISON: 2017 FINDINGS: Areas of scarring are present within the left lung base Moderate hiatal hernia The lungs appear clear of acute infiltrate. The heart is normal size IMPRESSION: No acute abnormalities displayed
[2019-07-06 17:04] LABS: Protime INR 1.3
[2019-07-06] MEDS ORDERED: FENTANYL CITR 100 MCG/2 ML ONE (17:09)
[2019-07-06] MEDS ORDERED: NA CHLORIDE 0.9% 500 ML ONE (17:09)
[2019-07-06 17:22] LABS: ALT/SGPT 19 U/L (12-78); AST/SGOT 17 U/L (15-37); Albumin 3.1 g/dL (3.4-5.0); Alkaline Phosphatase 65 U/L (45-117); BUN Blood Urea Nitrogen 19 mg/dL (7-18); Bicarbonate 27 mmol/L (21-32); Bilirubin Direct 0.2 mg/dL (0-0.2); Bilirubin Total 0.5 mg/dL (0.2-1.0); Glucose Level 156 mg/dL (74-106); Lipase 68 U/L (73-393); Magnesium 2.1 mg/dL (1.8-2.4); NT PRO-BNP 240 pg/mL (<450); Potassium 4.1 mmol/L (3.5-5.1); Protein, Total 7.1 g/dL (6.4-8.2); Sodium Level 140 mmol/L (136-145); Troponin (Emerg Dept Use Only) < 0.02 ng/mL (0.0-0.045)
--- NOTE | 2019-07-06 18:00 | RAD REPORT ---
EXAM DESCRIPTION: CT - Abdomen Pelvis W Contrast - 07/06/2019 5:51 pm CLINICAL HISTORY: Abdominal pain/constipation COMPARISON: none. TECHNIQUE: Computed axial tomography of the abdomen pelvis was obtained. 100 cc Isovue-300 was admin istered intravenously. Oral contrast was not requested which limits evaluation of bowel. All CT scans are performed using dose optimization technique as appropriate and may include automated exposure control or mA/KV adjustment according to patient size. FINDINGS: The liver, spleen, pancreas, adrenal and kidneys appear unremarkable. There is no evidence of diverticulitis. The rectum is distended with stool measuring 8.7 centimeters. A moderate amount of stool is present t hroughout the colon. Large hiatal hernia IMPRESSION: Fecal impaction
[2019-07-06] MEDS ORDERED: FLEET ENEMA ADULT PR ONE ×2 (18:58→19:23)
--- NOTE | 2019-07-06 20:26 | ER ---
Nurse's Notes [facility] Name: Linsey Mcdonnell Age: 84 yrs Sex: Male : 1935 Arrival Date: 07/06/2019 Time: 15:40 Bed 7 Private MD: Diagnosis: Fecal impaction;Constipation Presentation: 07/05 16:00 Chief complaint: Patient's son or daughter states: He has chronic impaction and he ca1 hasn't had a BM since . He takes fiber, prunes for his constipation. Coronavirus screen: The patient has NOT traveled to a country currently being monitored by the [facility] within the last 14 days. The patient has NOT had contact with any known and/or suspected case of coronavirus. Ebola Screen: Patient negative for fever greater than or equal to 101.5 degrees Fahrenheit, and additional compatible Ebola Virus Disease symptoms Patient denies exposure to infectious person. Patient denies travel to an Ebola-affected area in the 21 days before illness onset. No symptoms or risks identified at this time. Initial Sepsis Screen: Does the patient meet any 2 criteria? No. Patient's initial sepsis screen is negative. Does the patient have a suspected source of infection? No. Patient's initial sepsis screen is negative. Risk Assessment: Do you want to hurt yourself or someone else? Patient reports no desire to harm self or others. Onset of symptoms was July 06, 2019. 16:00 Method Of Arrival: Wheelchair ca1 16:00 Acuity: GILMAR 3 ca1 Historical: - Allergies: 16:06 NKA; ca1 - Home Meds: 16:06 Myrbetriq 50 mg oral Tb24 1 tab once daily [Active]; benzonatate 200 mg oral cap ca1 [Active]; pantoprazole 40 mg oral TbEC [Active]; donepezil 10 mg oral tab 1 tab once daily [Active]; modafinil 100 mg oral tab [Active]; tamsulosin 0.4 mg oral cp24 1 cap once daily [Active]; - PMHx: 16:06 allergies; BLIND; Bronchitis; Dementia; COPD; GERD; impaction; ca1 - PSHx: 16:06 Hernia repair; ROTO ROOTER; Appendectomy; ca1 - Immunization history:: Adult Immunizations up to date, Pneumococcal vaccine is up to date, Flu vaccine is up to date. - Social history:: Smoking status: Patient denies any tobacco usage or history of. Screenin:50 Abuse screen: Denies threats or abuse. Nutritional screening: No deficits noted. em Tuberculosis screening: No symptoms or risk factors identified. Fall Risk None identified. Assessment: 16:50 General: Appears in no apparent distress. uncomfortable, Behavior is calm, cooperative, em Denies fever. Pain: Complains of pain in buttocks Pain currently is 10 out of 10 on a pain scale. Neuro: Level of Consciousness is awake, alert, obeys commands, Oriented to person, place, time, situation, Appropriate for age. Cardiovascular: Capillary refill < 3 seconds Patient's skin is warm and dry. Respiratory: Airway is patent Respiratory effort is even, unlabored, Respiratory pattern is regular, symmetrical. GI: Abdomen is flat, Bowel sounds present X 4 quads. Abd is soft and non tender X 4 quads. Parent/caregiver reports the patient having constipation, vomiting, since last . : Reports urinary frequency. Derm: Skin is intact, is fragile, is thin, Skin is pink, warm \T\ dry. Musculoskeletal: Capillary refill < 3 seconds, Range of motion: intact in all extremities. 18:00 Reassessment: Patient appears in no apparent distress at this time. Patient and/or em family updated on plan of care and expected duration. Pain level reassessed. Patient is alert, oriented x 3, equal unlabored respirations, skin warm/dry/pink. 20:24 Reassessment: manual evacuation of stool done. patient is relieved. soap suds mg2 administered to the patient, large amount of stool evacuated from the patient. Vital Signs: 16:00 Pulse 65; Resp 17 S; Temp 97.2(O); Pulse Ox 96% on R/A; Weight 81.65 kg (R); Height 5 ca1 ft. 7 in. (170.18 cm) (R); 16:17 BP 92 / 65; ca1 16:54 BP 134 / 62; Pulse 92; Resp 18; Pulse Ox 99% on R/A; Pain 10/10; em 17:30 BP 134 / 86; Pulse 94; Resp 20 S; Pulse Ox 100% on R/A; em 19:00 BP 127 / 90; Pulse 98; Resp 18; Pulse Ox 99% on R/A; rv 19:30 BP 131 / 105; Pulse 92; Resp 16; Pulse Ox 99% on R/A; rv 20:00 BP 136 / 89; Pulse 98; Resp 17; Pulse Ox 96% on R/A; rv 20:53 BP 129 / 78; Pulse 90; Resp 18; Temp 98; Pulse Ox 100% on R/A; mg2 16:00 Body Mass Index 28.19 (81.65 kg, 170.18 cm) ca1 ED Course: 15:40 Patient arrived in ED. mr 16:03 Triage completed. ca1 16:06 Arm band placed on right wrist. ca1 16:13 Ramón Alvarez PA is PHCP. cp 16:13 Damien Waters MD is Attending Physician. cp 16:34 XRAY Chest (1 view) In Process Unspecified. EDMS 16:39 Van Shultz, RN is Primary Nurse. em 16:48 EKG done, by ED staff, reviewed by Ramón CHAMORRO. dh3 16:50 Patient has correct armband on for positive identification. Bed in low position. Call em light in reach. Adult w/ patient. Pulse ox on. NIBP on. 16:53 Initial lab(s) drawn, by me, sent to lab. Inserted saline lock: 20 gauge in right em antecubital area, using aseptic technique. Blood collected. 17:51 CT Abd/Pelvis - IV Contrast Only In Process Unspecified. EDMS 20:24 No provider procedures requiring assistance completed. IV discontinued, intact, mg2 bleeding controlled, No redness/swelling at site. Pressure dressing applied. Administered Medications: 16:55 Drug: Zofran (Ondansetron) 4 mg Route: IVP; Site: right antecubital; em 19:01 Follow up: Response: No adverse reaction; Marked relief of symptoms em 16:57 Drug: Pepcid 20 mg Route: IVP; Site: right antecubital; em 19:02 Follow up: Response: No adverse reaction em 17:06 Drug: NS 0.9% 500 ml Route: IV; Rate: bolus; Site: right antecubital; em 19:01 Follow up: IV Status: Completed infusion; IV Intake: 500ml em 17:06 Drug: fentaNYL (PF) 25 mcg Route: IVP; Site: right antecubital; em 19:02 Follow up: Response: No adverse reaction; Marked relief of symptoms; RASS: Alert and em Calm (0) 19:01 Drug: Fleet Enema 133 ml Route: LA; em 19:28 Follow up: Response: No adverse reaction mg2 19:28 Drug: Fleet Enema 133 ml Route: LA; mg2 20:54 Follow up: Response: No adverse reaction mg2 Intake: 19:01 IV: 500ml; Total: 500ml. em Outcome: 20:24 Discharge ordered by MD. cp 20:54 Discharged to home via wheelchair, with family. mg2 20:54 Condition: stable 20:54 Discharge instructions given to patient, family, Instructed on discharge instructions, follow up and referral plans. Demonstrated understanding of instructions, follow-up care. 20:54 Patient left the ED. mg2 Signatures: Dispatcher [employer] Lia Lombardo Edgar, RN RN em Ramón Alvarez PA PA cp Herrera, Deanna 3 Clarence Ferrari RN RN mg2 Yinka Mcarthur RN RN Sloane Herrera RN RN ca1 Corrections: (The following items were deleted from the chart) 20:53 20:24 Reassessment: manual evacuation of stool done. patient is relieved. mg2 mg2
--- NOTE | 2019-07-06 20:27 | EDPHYS ---
Physician Documentation [facility] Name: Linsey Mcdonnell Age: 84 yrs Sex: Male : 1935 Arrival Date: 07/06/2019 Time: 15:40 Bed 7 Private MD: ED Physician Damien Waters HPI: 07/05 16:29 This 84 yrs old Male presents to ER via Wheelchair with complaints of cp Constipation. 16:30 The patient presents with abdominal pain that is diffuse, constipation. cp 16:30 Onset: The symptoms/episode began/occurred gradually, and became worse today. cp Associated signs and symptoms: Pertinent positives: nausea and vomiting, constipation, Pertinent negatives: blood in stools, chest pain, diarrhea, fever, vomiting blood. Daughter reports patient last had bowel movement last . Historical: - Allergies: 16:06 NKA; ca1 - Home Meds: 16:06 Myrbetriq 50 mg oral Tb24 1 tab once daily [Active]; benzonatate 200 mg oral cap ca1 [Active]; pantoprazole 40 mg oral TbEC [Active]; donepezil 10 mg oral tab 1 tab once daily [Active]; modafinil 100 mg oral tab [Active]; tamsulosin 0.4 mg oral cp24 1 cap once daily [Active]; - PMHx: 16:06 allergies; BLIND; Bronchitis; Dementia; COPD; GERD; impaction; ca1 - PSHx: 16:06 Hernia repair; ROTO ROOTER; Appendectomy; ca1 - Immunization history:: Adult Immunizations up to date, Pneumococcal vaccine is up to date, Flu vaccine is up to date. - Social history:: Smoking status: Patient denies any tobacco usage or history of. ROS: 16:35 Constitutional: Negative for body aches, chills, fever, poor PO intake. cp 16:35 Eyes: Negative for injury, pain, redness, and discharge. cp 16:35 ENT: Negative for drainage from ear(s), ear pain, sore throat, difficulty swallowing, cp difficulty handling secretions. 16:35 Cardiovascular: Negative for chest pain. 16:35 Respiratory: Negative for cough, wheezing. 16:35 Abdomen/GI: Positive for abdominal pain, nausea, vomiting, constipation, Negative for diarrhea, black/tarry stool, rectal bleeding. 16:35 Back: Negative for radiated pain. 16:35 Skin: Negative for cellulitis, rash. 16:35 Neuro: Negative for altered mental status, headache. 16:35 All other systems are negative. Exam: 16:40 Constitutional: The patient appears in no acute distress, alert, awake, cp non-diaphoretic, non-toxic, well developed, frail, uncomfortable. 16:40 Head/Face: Normocephalic, atraumatic. cp 16:40 Eyes: Periorbital structures: appear normal, Conjunctiva: normal, no exudate, no injection, Sclera: no appreciated abnormality, Lids and lashes: appear normal, bilaterally. 16:40 ENT: External ear(s): are unremarkable, Nose: is normal, Mouth: Lips: dry, Oral mucosa: dry, Posterior pharynx: is normal, airway is patent, no erythema, no exudate. 16:40 Neck: ROM/movement: is normal, is supple, no meningismus, no nuchal rigidity. 16:40 Chest/axilla: Inspection: normal, Palpation: is normal, no crepitus, no tenderness. 16:40 Cardiovascular: Rate: normal, Rhythm: regular, Edema: is not appreciated, JVD: is not appreciated. 16:40 Respiratory: the patient does not display signs of respiratory distress, Respirations: normal, no use of accessory muscles, labored breathing, is not present, Breath sounds: are clear throughout, no decreased breath sounds. 16:40 Abdomen/GI: Inspection: abdomen appears normal, Bowel sounds: active, all quadrants, Palpation: soft, in all quadrants, moderate abdominal tenderness, in all quadrants, rebound tenderness, is not appreciated, voluntary guarding, is elicited in all quadrants, Rectal exam: Stool: brown, fecal impaction, that is moderate. 16:40 Skin: no rash present. 16:40 Neuro: Orientation: no acute changes, per family, Mentation: no acute changes, per family, Motor: moves all fours. 16:55 ECG was reviewed by the Attending Physician. cp Vital Signs: 16:00 Pulse 65; Resp 17 S; Temp 97.2(O); Pulse Ox 96% on R/A; Weight 81.65 kg (R); Height 5 ca1 ft. 7 in. (170.18 cm) (R); 16:17 BP 92 / 65; ca1 16:54 BP 134 / 62; Pulse 92; Resp 18; Pulse Ox 99% on R/A; Pain 10/10; em 17:30 BP 134 / 86; Pulse 94; Resp 20 S; Pulse Ox 100% on R/A; em 19:00 BP 127 / 90; Pulse 98; Resp 18; Pulse Ox 99% on R/A; rv 19:30 BP 131 / 105; Pulse 92; Resp 16; Pulse Ox 99% on R/A; rv 20:00 BP 136 / 89; Pulse 98; Resp 17; Pulse Ox 96% on R/A; rv 20:53 BP 129 / 78; Pulse 90; Resp 18; Temp 98; Pulse Ox 100% on R/A; mg2 16:00 Body Mass Index 28.19 (81.65 kg, 170.18 cm) ca1 MDM: 16:18 Patient medically screened. cp 16:30 Differential diagnosis: bowel obstruction, fecal impaction, bowel perforation, cp constipation. 20:23 Data reviewed: vital signs, nurses notes, lab test result(s), EKG, radiologic studies, cp and as a result, I will discharge patient. 20:23 Counseling: I had a detailed discussion with the patient and/or guardian regarding: the cp historical points, exam findings, and any diagnostic results supporting the discharge/admit diagnosis, lab results, radiology results, to return to the emergency department if symptoms worsen or persist or if there are any questions or concerns that arise at home. Response to treatment: the patient's symptoms have markedly improved after treatment, VSS. Patient observed to have large bowel movement while in ED. 07/05 16:20 Order name: Basic Metabolic Panel; Complete Time: 17:32 cp 07/05 17:32 Interpretation: Normal except: GLUC 156; BUN 19; GFR 55. cp 07/05 16:20 Order name: CBC with Diff; Complete Time: 17:32 cp 07/05 17:32 Interpretation: Normal except: SHARI% 75.4; LYM% 15.1. cp / 16:20 Order name: LFT's; Complete Time: 17:32 cp 07/05 16:20 Order name: Magnesium; Complete Time: 17:32 cp 07/05 16:20 Order name: NT PRO-BNP; Complete Time: 17:32 cp 07/05 16:20 Order name: PT-INR; Complete Time: 17:16 cp /04 17:16 Interpretation: Abnormal: PT 15.2. cp / 16:20 Order name: Troponin (emerg Dept Use Only); Complete Time: 17:32 cp 07/05 16:20 Order name: XRAY Chest (1 view); Complete Time: 17:16 cp /04 17:16 Interpretation: Report review. cp 07/05 16:20 Order name: Lipase; Complete Time: 17:32 cp 07/05 16:22 Order name: CT Abd/Pelvis - IV Contrast Only; Complete Time: 18:11 cp 07/05 16:20 Order name: EKG; Complete Time: 16:21 cp 07/05 16:20 Order name: Cardiac monitoring; Complete Time: 19:06 cp 07/05 16:20 Order name: EKG - Nurse/Tech; Complete Time: 17:00 cp 07/05 16:20 Order name: IV Saline Lock; Complete Time: 17:00 cp 07/05 16:20 Order name: Labs collected and sent; Complete Time: 17:00 cp 07/05 16:20 Order name: O2 Per Protocol; Complete Time: 19:06 cp 04 16:20 Order name: O2 Sat Monitoring; Complete Time: 19:06 cp EC:55 Rate is 91 beats/min. Rhythm is regular. [place] interval is normal. QRS interval is normal. cp QT interval is normal. Interpreted by me. Reviewed by me. Administered Medications: 16:55 Drug: Zofran (Ondansetron) 4 mg Route: IVP; Site: right antecubital; em 19:01 Follow up: Response: No adverse reaction; Marked relief of symptoms em 16:57 Drug: Pepcid 20 mg Route: IVP; Site: right antecubital; em 19:02 Follow up: Response: No adverse reaction em 17:06 Drug: NS 0.9% 500 ml Route: IV; Rate: bolus; Site: right antecubital; em 19:01 Follow up: IV Status: Completed infusion; IV Intake: 500ml em 17:06 Drug: fentaNYL (PF) 25 mcg Route: IVP; Site: right antecubital; em 19:02 Follow up: Response: No adverse reaction; Marked relief of symptoms; RASS: Alert and em Calm (0) 19:01 Drug: Fleet Enema 133 ml Route: W[place]; em 19:28 Follow up: Response: No adverse reaction mg2 19:28 Drug: Fleet Enema 133 ml Route: [place]; mg2 20:54 Follow up: Response: No adverse reaction mg2 Disposition: 07/06 10:51 Co-signature as Attending Physician, Damien Waters MD I agree with the assessment and kdr plan of care. Disposition: 07/06/19 20:24 Discharged to Home. Impression: Fecal impaction, Constipation. - Condition is Stable. - Discharge Instructions: Constipation, Adult, Fecal Impaction. - Medication Reconciliation Form, Thank You Letter, Antibiotic Education, Prescription Opioid Use form. - Follow up: Private Physician; When: 2 - 3 days; Reason: Worsening of condition. - Problem is new. - Symptoms have improved. Signatures: Dispatcher [employer] EDDamien Carmona MD MD [facility] Van Shultz RN RN Ramón Alvarez PA PA cp Clarence Ferrari RN RN mg2 Sloane Herrera RN RN [facility] Corrections: (The following items were deleted from the chart) 07/05 20:25 20:24 07/06/2019 20:24 Discharged to Home. Impression: Fecal impaction. Condition is cp Stable. Forms are Medication Reconciliation Form, Thank You Letter, Antibiotic Education, Prescription Opioid Use. Follow up: Private Physician; When: 2 - 3 days; Reason: Worsening of condition. Problem is new. Symptoms have improved. cp 20:54 20:25 07/06/2019 20:24 Discharged to Home. Impression: Fecal impaction; Constipation. mg2 Condition is Stable. Discharge Instructions: Constipation, Adult, Fecal Impaction. Forms are Medication Reconciliation Form, Thank You Letter, Antibiotic Education, Prescription Opioid Use. Follow up: Private Physician; When: 2 - 3 days; Reason: Worsening of condition. Problem is new. Symptoms have improved. cp
[2019-07-06 21:10] VITALS: BP 129/78; TEMP 98; O2SAT 100
--- NOTE | 2019-07-07 11:40 | EKG ---
Test Date: 2019-07-06 Test Time: 16:48:40 Bead Preparer: ROBERT MEASUREMENT RESULTS: Intervals: Rate: 91 WV: 168 QRSD: 90 QT: 378 QTc: 464 [place]: P: 54 WV: 168 QRS: 58 T: 64 INTERPRETIVE STATEMENTS: Normal sinus rhythm Normal ECG Compared to ECG 09/24/2017 11:21:17 No significant changes Electronically Signed On 07-07-19 11:36:59 GAS UTILITY WORKER by Delmer Luu
== END 2019-07-06 20:54 | disposition home or self-care (01) ==
LOC: ER 15:38
DX: K56.41 Fecal impaction (principal); F03.90 Unspecified dementia, unspecified severity, without behavioral disturbance, psychotic disturbance, mood disturbance, and anxiety
CPT/HCPCS: 96361; 93005; 85025; 80048; 36415; 83735; 85610; 80076; 84484; 83690; 83880; 74177; 71045; 96375; 96374; 99284; Q9967; J3010; J7040; J2405

== ENCOUNTER 2019-07-09 20:15 | Emergency (ER) | payer OTHER, MEDICARE ==
[2019-07-09 21:05] LABS: Basophils % 0.6 % (0-1.3); Hematocrit 41.7 % (39.6-49.0); Lymphocytes % 12.8 % (15.3-44.8); MPV 8.1 fL (7.6-11.3); RBC Red Blood Cell Count 4.58 M/uL (4.33-5.43)
[2019-07-09 21:22] LABS: Albumin 2.9 g/dL (3.4-5.0); Bilirubin Direct 0.1 mg/dL (0-0.2); Bilirubin Total 0.4 mg/dL (0.2-1.0); Potassium 3.5 mmol/L (3.5-5.1); Protein, Total 6.9 g/dL (6.4-8.2)
[2019-07-09] MEDS ORDERED: ONDANSETRON 4 MG/2 ML VIAL ONE (21:26)
[2019-07-09] MEDS ORDERED: FAMOTIDINE 20 MG/2 ML VIAL IV ONE (22:03)
--- NOTE | 2019-07-10 00:06 | ER ---
Nurse's Notes [facility] Name: Linsey Mcdonnell Age: 84 yrs Sex: Male : 1935 Arrival Date: 07/09/2019 Time: 20:23 Bed 15 Private MD: Diagnosis: Upper abdominal pain, unspecified Presentation: 07/08 20:26 Chief complaint: EMS states: Pt from [facility], was previously seen in ER for wh constipation S/P digital disimpaction. Pt felt better afterwards, now C/O again of abdominal pain. Pt was supposed to see GI on Thursday for same problem. Coronavirus screen: The patient has NOT traveled to a country currently being monitored by the CDC within the last 14 days. Ebola Screen: Patient negative for fever greater than or equal to 101.5 degrees Fahrenheit, and additional compatible Ebola Virus Disease symptoms Patient denies exposure to infectious person. Initial Sepsis Screen: Does the patient meet any 2 criteria? HR > 90 bpm. Does the patient have a suspected source of infection? Yes: Acute abdominal pain. Risk Assessment: Do you want to hurt yourself or someone else? Patient reports no desire to harm self or others. 20:26 Method Of Arrival: EMS: [facility] 20:26 Acuity: GILMAR 3 20:44 Onset of symptoms is unknown. Historical: - Allergies: 20:34 NKA; wh - Home Meds: 20:34 benzonatate 200 mg Oral cap [Active]; donepezil 10 mg Oral tab 1 tab once daily [Active]; modafinil 100 mg Oral tab [Active]; Myrbetriq 50 mg Oral Tb24 1 tab once daily [Active]; pantoprazole 40 mg Oral TbEC 1 tab once daily [Active]; tamsulosin 0.4 mg Oral cp24 1 cap once daily [Active]; cetirizine 10 mg oral tab 1 tab once daily [Active]; docusate sodium 100 mg Oral cap 1 cap 2 times per day [Active]; magnesium oxide 400 mg Oral cap [Active]; - PMHx: 20:34 allergies; BLIND; Bronchitis; COPD; Dementia; GERD; impaction; wh - Immunization history:: Adult Immunizations up to date. - Social history:: Smoking status: Patient/guardian denies using Patient/guardian denies using alcohol, street drugs, The patient lives with spouse, . - Family history:: not pertinent. Screenin:35 Abuse screen: Denies threats or abuse. Denies injuries from another. Nutritional wh screening: No deficits noted. Tuberculosis screening: No symptoms or risk factors identified. Fall Risk Secondary diagnosis (15 points) Blindness. Assessment: 20:42 General: Appears in no apparent distress. Behavior is calm, cooperative, appropriate wh for age. Pain: Complains of pain in abdomen diffusely Pain does not radiate. Pain currently is 5 out of 10 on a pain scale. Quality of pain is described as crampy, Pain began 2-3 days ago. Is episodic. Neuro: Level of Consciousness is awake, alert, obeys commands, Oriented to person, place, time. Cardiovascular: Heart tones S1 S2. Respiratory: Airway is patent Respiratory effort is even, unlabored, Respiratory pattern is regular, symmetrical, Breath sounds are clear bilaterally. GI: Abdomen is flat, non-distended, Bowel sounds present X 4 quads. Abd is soft and non tender X 4 quads. Abd is rigid Reports lower abdominal pain, upper abdominal pain, constipation. : No signs and/or symptoms were reported regarding the genitourinary system. EENT: Reports blindness. Derm: Skin is intact. Musculoskeletal: Circulation, motion, and sensation intact. 21:30 Reassessment: Patient appears in no apparent distress at this time. No changes from previously documented assessment. Patient and/or family updated on plan of care and expected duration. Pain level reassessed. Patient is alert, oriented x 3, equal unlabored respirations, skin warm/dry/pink. Pt vomiting and nauseated order for Zofran made by provider. 22:45 Reassessment: Patient appears in no apparent distress at this time. No changes from previously documented assessment. Patient and/or family updated on plan of care and expected duration. Pain level reassessed. Patient is alert, oriented x 3, equal unlabored respirations, skin warm/dry/pink. Patient states feeling better. 03/08 00:10 Reassessment: Patient appears in no apparent distress at this time. No changes from previously documented assessment. Patient and/or family updated on plan of care and expected duration. Pain level reassessed. Patient is alert, oriented x 3, equal unlabored respirations, skin warm/dry/pink. Patient states feeling better. Patient states symptoms have improved. Vital Signs: 07/08 20:26 BP 130 / 76; Pulse 97; Resp 18; Temp 98.4; Pulse Ox 96% ; Weight 81.65 kg; Height 5 ft. 7 in. (170.18 cm); Pain 5/10; 21:30 BP 124 / 93; Pulse 94; Resp 18; Pulse Ox 98% on R/A; 23:00 BP 124 / 63; Pulse 98; Resp 18; Pulse Ox 94% on R/A; 07/09 00:00 BP 128 / 83; Pulse 97; Resp 18; Pulse Ox 94% on R/A; 07/08 20:26 Body Mass Index 28.19 (81.65 kg, 170.18 cm) ED Course: 07/08 20:23 Patient arrived in ED. 20:26 Marin Rowell is Primary Nurse. 20:28 Patel Sibley MD is Attending Physician. [facility] 20:30 Triage completed. 20:44 Arm band placed on right wrist. 20:44 Patient has correct armband on for positive identification. Placed in gown. Bed in low wh position. Call light in reach. Side rails up X 1. Pulse ox on. NIBP on. 20:50 Inserted saline lock: 20 gauge in right antecubital area, using aseptic technique. Blood collected. 21:59 CT Abd/Pelvis - IV Contrast Only In Process Unspecified. EDMS 07/09 00:30 No provider procedures requiring assistance completed. IV discontinued, intact, bleeding controlled, No redness/swelling at site. Administered Medications: 07/08 21:03 Drug: NS 0.9% 1000 ml Route: IV; Rate: 1 bolus; Site: right antecubital; 07/09 00:30 Follow up: Response: No adverse reaction; IV Status: Completed infusion 07/08 21:25 Drug: Zofran (Ondansetron) 4 mg Route: IVP; Site: right antecubital; 07/09 00:29 Follow up: Response: No adverse reaction; Nausea is decreased 07/08 22:01 Drug: Pepcid 20 mg Route: IVP; Site: right antecubital; 07/09 00:29 Follow up: Response: No adverse reaction; Marked relief of symptoms Outcome: 00:05 Discharge ordered by . rekha 00:30 Discharged to home via wheelchair, with family. 00:30 Condition: stable 00:30 Discharge instructions given to patient, family, Instructed on discharge instructions, follow up and referral plans. medication usage, POC Demonstrated understanding of instructions, follow-up care, medications, POC Prescriptions given X 1. 00:31 Patient left the ED. Signatures: Dispatcher [employer] Marin Underwood Patel Sibley MD MD ma2
--- NOTE | 2019-07-10 00:06 | EDPHYS ---
Physician Documentation [facility] Name: Linsey Mcdonnell Age: 84 yrs Sex: Male : 1935 Arrival Date: 07/09/2019 Time: 20:23 Bed 15 Private MD: ED Physician Patel Sibley HPI: 07/09 00:03 This 84 yrs old Male presents to ER via EMS with complaints of Abdominal Pain.ma2 00:03 The patient presents with abdominal pain in the epigastric area. Onset: The ma2 symptoms/episode began/occurred gradually, 1 day(s) ago. Associated signs and symptoms: Pertinent negatives: anorexia, chest pain, dysuria, shortness of breath, testicular pain, vomiting. Severity of pain: At its worst the pain was mild in the emergency department the pain has resolved. The patient has not experienced similar symptoms in the past, The patient has experienced similar episodes in the past. Historical: - Allergies: 07/08 20:34 NKA; wh - Home Meds: 20:34 benzonatate 200 mg Oral cap [Active]; donepezil 10 mg Oral tab 1 tab once daily [Active]; modafinil 100 mg Oral tab [Active]; Myrbetriq 50 mg Oral Tb24 1 tab once daily [Active]; pantoprazole 40 mg Oral TbEC 1 tab once daily [Active]; tamsulosin 0.4 mg Oral cp24 1 cap once daily [Active]; cetirizine 10 mg oral tab 1 tab once daily [Active]; docusate sodium 100 mg Oral cap 1 cap 2 times per day [Active]; magnesium oxide 400 mg Oral cap [Active]; - PMHx: 20:34 allergies; BLIND; Bronchitis; COPD; Dementia; GERD; impaction; wh - Immunization history:: Adult Immunizations up to date. - Social history:: Smoking status: Patient/guardian denies using Patient/guardian denies using alcohol, street drugs, The patient lives with spouse, . - Family history:: not pertinent. ROS: 07/09 00:03 Constitutional: Negative for fever, chills, and weight loss. ma2 All other systems are negative. Exam: 00:03 Constitutional: This is a well developed, well nourished patient who is awake, alert, ma2 and in no acute distress. Chest/axilla: Normal chest wall appearance and motion. Nontender with no deformity. No lesions are appreciated. Cardiovascular: Regular rate and rhythm with a normal S1 and S2. No gallops, murmurs, or rubs. Normal PMI, no JVD. No pulse deficits. Respiratory: Lungs have equal breath sounds bilaterally, clear to auscultation and percussion. No rales, rhonchi or wheezes noted. No increased work of breathing, no retractions or nasal flaring. Abdomen/GI: Soft, non-tender, with normal bowel sounds. No distension or tympany. No guarding or rebound. No evidence of tenderness throughout. Skin: Warm, dry with normal turgor. Normal color with no rashes, no lesions, and no evidence of cellulitis. MS/ Extremity: Pulses equal, no cyanosis. Neurovascular intact. Full, normal range of motion. Neuro: Awake and alert, GCS 15, oriented to person, place, time, and situation. Cranial nerves II-XII grossly intact. Motor strength 5/5 in all extremities. Sensory grossly intact. Cerebellar exam normal. Normal gait. Vital Signs: 07/08 20:26 BP 130 / 76; Pulse 97; Resp 18; Temp 98.4; Pulse Ox 96% ; Weight 81.65 kg; Height 5 ft. wh 7 in. (170.18 cm); Pain 5/10; 21:30 BP 124 / 93; Pulse 94; Resp 18; Pulse Ox 98% on R/A; 23:00 BP 124 / 63; Pulse 98; Resp 18; Pulse Ox 94% on R/A; 07/09 00:00 BP 128 / 83; Pulse 97; Resp 18; Pulse Ox 94% on R/A; 07/08 20:26 Body Mass Index 28.19 (81.65 kg, 170.18 cm) MDM: 07/08 20:28 Patient medically screened. ma2 07/09 00:03 Differential diagnosis: gastritis, gastroesophageal reflux disease, GI Bleed, ma2 Hepatitis, Irritable bowel syndrome. Data reviewed: vital signs, nurses notes. Counseling: I had a detailed discussion with the patient and/or guardian regarding: the historical points, exam findings, and any diagnostic results supporting the discharge/admit diagnosis, the presence of at least one elevated blood pressure reading (>120/80) during this emergency department visit, the need for outpatient follow up. Response to treatment: the patient's symptoms have resolved after treatment. 07/08 20:40 Order name: Basic Metabolic Panel [facility] 07/08 20:40 Order name: CBC with Diff [facility] 07/08 20:40 Order name: Creatinine for Radiology; Complete Time: 21:41 [facility] 07/08 20:40 Order name: Hepatic Function [facility] 07/08 20:40 Order name: Lipase [facility] 07/08 21:10 Order name: CBC with Automated Diff; Complete Time: 21:40 EDMS 07/08 20:40 Order name: IV Saline Lock; Complete Time: 21:03 [facility] 07/08 20:40 Order name: CT Abd/Pelvis - IV Contrast Only [facility] 07/08 21:29 Order name: Basic Metabolic Panel; Complete Time: 21:41 EDMS 07/08 21:29 Order name: Liver (Hepatic) Function; Complete Time: 21:41 EDMS 07/08 21:29 Order name: Lipase; Complete Time: 21:41 EDMS 07/08 20:40 Order name: Labs collected and sent; Complete Time: 21:03 [facility] Administered Medications: 07/08 21:03 Drug: NS 0.9% 1000 ml Route: IV; Rate: 1 bolus; Site: right antecubital; 07/09 00:30 Follow up: Response: No adverse reaction; IV Status: Completed infusion 07/08 21:25 Drug: Zofran (Ondansetron) 4 mg Route: IVP; Site: right antecubital; 07/09 00:29 Follow up: Response: No adverse reaction; Nausea is decreased 07/08 22:01 Drug: Pepcid 20 mg Route: IVP; Site: right antecubital; 07/09 00:29 Follow up: Response: No adverse reaction; Marked relief of symptoms Disposition: 07/10/19 00:05 Discharged to Home. Impression: Upper abdominal pain, unspecified. - Condition is Stable. - Discharge Instructions: Abdominal Pain, Adult. - Prescriptions for Maalox Maximum Strength - take 10 milliliter by ORAL route 2-3 times daily for 8-10 days; 200 milliliter. - Medication Reconciliation Form, Thank You Letter, Antibiotic Education, Prescription Opioid Use form. - Follow up: Private Physician; When: Tomorrow; Reason: If symptoms return, Continuance of care. Signatures: Dispatcher [employer] EDMarin Angela Patel Diallo MD MD ma2 Corrections: (The following items were deleted from the chart) 00:31 00:05 07/10/2019 00:05 Discharged to Home. Impression: Upper abdominal pain, wh unspecified. Condition is Stable. Prescriptions for Maalox Maximum Strength - take 10 milliliter by ORAL route 2-3 times daily for 8-10 days; 200 milliliter. and Forms are Medication Reconciliation Form, Thank You Letter, Antibiotic Education, Prescription Opioid Use. Follow up: Private Physician; When: Tomorrow; Reason: If symptoms return, Continuance of care. ma2
[2019-07-10 01:39] VITALS: TEMP 98.4
[2019-07-10 01:42] VITALS: O2SAT 94
[2019-07-10 01:44] VITALS: BP 128/83
--- NOTE | 2019-07-11 11:54 | RAD REPORT ---
EXAM DESCRIPTION: CT Abdomen Pelvis W Contrast CLINICAL HISTORY: 84 years Male ABD PAIN. Recent disimpaction. TECHNIQUE: Contiguous axial images obtained through the abdomen and pelvis following intravenous con trast administration. Coronal and sagittal reformatted images provided. This CT exam was performed according to our departmental dose-optimization program, which includes on e or more of the following dose reduction techniques: automated exposure control, adjustment of the m A and/or kV according to patient size, and/or use of iterative reconstruction technique. COMPARISON: 07/06/2019 FINDINGS: Examination somewhat degraded by patient motion. There is a moderate to large hiatal hernia containing the proximal half of the stomach. This is incom pletely imaged. There does appear to be thickening of the distal esophagus and gastroesophageal junct ion. Again seen are trace bilateral pleural effusions, left greater than right. Patchy bibasilar atelectas is. There remains mild proximal and mid colonic constipation. There has been decompression of the descend ing colon and rectosigmoid. No colonic inflammation. No bowel obstruction, pneumatosis, free intraper itoneal air, abscess, or ascites. Pancreatic atrophy without focal lesion or inflammation. The liver, biliary tree, gallbladder, spleen, adrenal glands, and urinary bladder are normal. Small bilateral renal cysts without hydronephrosis or pyelonephritis. There is no bowel inflammation, obstruction, free intraperitoneal air, or ascites. Atherosclerosis without abdominal aortic aneurysm or retroperitoneal hemorrhage. Chronic degenerative changes present throughout the spine and at both hips without acute fracture. IMPRESSION: Moderate to large hiatal hernia contains the proximal half of the stomach. There does ap pear to be thickening of the distal esophagus and gastroesophageal junction, incompletely imaged. Interval decompression of the distal colon and rectosigmoid. Mild proximal to mid colonic constipatio n without colonic inflammation. Trace bilateral pleural effusions, left greater than right. Electronically signed by: Shahrzad Younger MD 07/09/2019 11:01 PM [employer] Due to temporary technical issues with the PACS/Fluency reporting system, reports are being signed by the in house radiologist as a courtesy to ensure prompt reporting. The interpreting radiologist is f ully responsible for the content of the report.
== END 2019-07-10 00:31 | disposition home or self-care (01) ==
LOC: ER 20:15
DX: R10.13 Epigastric pain (principal); J44.9 Chronic obstructive pulmonary disease, unspecified; F03.90 Unspecified dementia, unspecified severity, without behavioral disturbance, psychotic disturbance, mood disturbance, and anxiety
CPT/HCPCS: 96361; 85025; 80048; 36415; 80076; 83690; 74177; 96375; 96374; 99284; Q9967; J2405

== ENCOUNTER 2019-07-21 22:19 | Observation (INO) | payer OTHER, MEDICARE ==
[2019-07-21] MEDS ORDERED: NA CHLORIDE 0.9% 1,000 ML ONE (22:48)
--- NOTE | 2019-07-21 23:01 | RAD REPORT ---
EXAM DESCRIPTION: RAD - Chest Single View - 07/21/2019 10:54 pm CLINICAL HISTORY: COUGH Chest pain. COMPARISON: Chest Single View dated 07/06/2019; Chest Pa And Lat (2 Views) dated 03/24/2019; Chest Sin gle View dated 09/24/2017; Chest Single View dated 09/08/2017 FINDINGS: Portable technique limits examination quality. The lungs are grossly clear. The heart is normal in size. Tortuous thoracic aorta. IMPRESSION: No acute intrathoracic process suspected.
[2019-07-21 23:17] LABS: Protime INR 1.18
[2019-07-21 23:18] LABS: Absolute Lymphocytes (CBC) 0.8 K/uL (0.7-4.9); Basophils % 0.6 % (0-1.3); Hematocrit 41.2 % (39.6-49.0); MPV 8.1 fL (7.6-11.3)
[2019-07-21 23:43] LABS: ALT/SGPT 26 U/L (12-78); Alkaline Phosphatase 66 U/L (45-117); BUN Blood Urea Nitrogen 31 mg/dL (7-18); Bicarbonate 23 mmol/L (21-32); Bilirubin Direct < 0.1 mg/dL (0-0.2); Bilirubin Total 0.3 mg/dL (0.2-1.0); Glucose Level 100 mg/dL (74-106); Lipase 154 U/L (73-393); NT PRO-BNP 30 pg/mL (<450); Protein, Total 6.8 g/dL (6.4-8.2); Sodium Level 139 mmol/L (136-145); Troponin (Emerg Dept Use Only) < 0.02 ng/mL (0.0-0.045)
[2019-07-21 23:46] LABS: AST/SGOT 24 U/L (15-37); Magnesium 2.2 mg/dL (1.8-2.4); Potassium 3.9 mmol/L (3.5-5.1)
--- NOTE | 2019-07-22 01:34 | EDPHYS ---
Physician Documentation [facility] Name: Linsey Mcdonnell Age: 84 yrs Sex: Male : 1935 Arrival Date: 07/21/2019 Time: 22:24 Bed 2 Private MD: ED Physician Ramón Kaufman HPI: 07/20 23:37 This 84 yrs old Male presents to ER via EMS with complaints of Blood Pressure stanton Problem. 23:40 weak, off balance, leaning, hypotensive. Onset: The symptoms/episode began/occurred stanton today. Severity of symptoms: At their worst the symptoms were moderate in the emergency department the symptoms. The patient has not experienced similar symptoms in the past. Historical: - Allergies: 23:20 NKA; ea - Home Meds: 23:20 benzonatate 200 mg Oral cap [Active]; cetirizine 10 mg Oral tab 1 tab once daily ea [Active]; docusate sodium 100 mg Oral cap 1 cap 2 times per day [Active]; donepezil 10 mg Oral tab 1 tab once daily [Active]; magnesium oxide 400 mg Oral cap [Active]; modafinil 100 mg Oral tab [Active]; Myrbetriq 50 mg Oral Tb24 1 tab once daily [Active]; pantoprazole 40 mg Oral TbEC 1 tab once daily [Active]; tamsulosin 0.4 mg Oral cp24 1 cap once daily [Active]; - PMHx: 23:20 impaction; GERD; Dementia; COPD; Bronchitis; BLIND; allergies; ea - Immunization history:: Adult Immunizations up to date. - Social history:: Smoking status: Patient denies any tobacco usage or history of. ROS: 23:42 Constitutional: Negative for fever, chills, and weight loss, Eyes: Negative for injury, stanton pain, redness, and discharge, ENT: Negative for injury, pain, and discharge, Neck: Negative for injury, pain, and swelling, Cardiovascular: Negative for chest pain, palpitations, and edema, Respiratory: Negative for shortness of breath, cough, wheezing, and pleuritic chest pain, Abdomen/GI: Negative for abdominal pain, nausea, vomiting, diarrhea, and constipation, Back: Negative for injury and pain, : Negative for injury, bleeding, discharge, and swelling, MS/Extremity: Negative for injury and deformity, Skin: Negative for injury, rash, and discoloration, Psych: Negative for depression, anxiety, suicide ideation, homicidal ideation, and hallucinations, Allergy/Immunology: Negative for hives, rash, and allergies, Endocrine: Negative for neck swelling, polydipsia, polyuria, polyphagia, and marked weight changes. 23:42 Neuro: Positive for weakness. Exam: 23:42 Constitutional: This is a well developed, well nourished patient who is awake, alert, stanton and in no acute distress. Head/Face: Normocephalic, atraumatic. Eyes: Pupils equal round and reactive to light, extra-ocular motions intact. Lids and lashes normal. Conjunctiva and sclera are non-icteric and not injected. Cornea within normal limits. Periorbital areas with no swelling, redness, or edema. ENT: Nares patent. No nasal discharge, no septal abnormalities noted. Tympanic membranes are normal and external auditory canals are clear. Oropharynx with no redness, swelling, or masses, exudates, or evidence of obstruction, uvula midline. Mucous membranes moist. Neck: Trachea midline, no thyromegaly or masses palpated, and no cervical lymphadenopathy. Supple, full range of motion without nuchal rigidity, or vertebral point tenderness. No Meningismus. Chest/axilla: Normal chest wall appearance and motion. Nontender with no deformity. No lesions are appreciated. Cardiovascular: Regular rate and rhythm with a normal S1 and S2. No gallops, murmurs, or rubs. Normal PMI, no JVD. No pulse deficits. Respiratory: Lungs have equal breath sounds bilaterally, clear to auscultation and percussion. No rales, rhonchi or wheezes noted. No increased work of breathing, no retractions or nasal flaring. Back: No spinal tenderness. No costovertebral tenderness. Full range of motion. Male : Normal genitalia with no discharge or lesions. Skin: Warm, dry with normal turgor. Normal color with no rashes, no lesions, and no evidence of cellulitis. MS/ Extremity: Pulses equal, no cyanosis. Neurovascular intact. Full, normal range of motion. Psych: Awake, alert, with orientation to person, place and time. Behavior, mood, and affect are within normal limits. 23:42 Abdomen/GI: Inspection: distension, Bowel sounds: active, Palpation: mild abdominal tenderness, in all quadrants, Liver: no appreciated palpable abnormalities, Hernia: not appreciated. 07/21 01:21 Musculoskeletal/extremity: Circulation is intact in all extremities. Sensation intact. [facility] Compartment Syndrome exam of affected extremity: is normal. DVT Exam: No signs of deep vein thrombosis. no pain, no swelling, no tenderness, negative Homans' sign noted on exam, no appreciated bluish discoloration, no erythema, no increased warmth. Vital Signs: 07/20 22:30 BP 108 / 71; Pulse 82; Resp 18; Temp 98; Pulse Ox 100% on R/A; ea 23:38 BP 102 / 61; Pulse 83; Resp 18; Pulse Ox 99% ; 07/21 01:00 BP 107 / 77; Pulse 65; Resp 19; Pulse Ox 97% ; 01:00 BP 101 / 73; Pulse 86; Resp 18; Pulse Ox 100% on R/A; 02:30 BP 116 / 75; Pulse 82; Resp 18; Pulse Ox 98% ; 03:30 BP 113 / 72; Pulse 78; Resp 19; Temp 97.6; Pulse Ox 95% on R/A; MDM: 07/20 22:24 Patient medically screened. [facility] 23:44 Data reviewed: vital signs, nurses notes, lab test result(s), EKG, radiologic studies, [facility] CT scan, plain films. 07/20 22:27 Order name: Basic Metabolic Panel; Complete Time: 23:47 [facility] 07/20 22:27 Order name: CBC with Diff; Complete Time: 23:35 [facility] 07/20 22:27 Order name: LFT's; Complete Time: 23:47 [facility] 07/20 22:27 Order name: Magnesium; Complete Time: 23:47 [facility] 07/20 22:27 Order name: NT PRO-BNP; Complete Time: 23:47 [facility] 07/20 22:27 Order name: PT-INR; Complete Time: 23:35 [facility] 07/20 22:27 Order name: Troponin (emerg Dept Use Only); Complete Time: 23:47 [facility] 07/20 22:27 Order name: Lipase; Complete Time: 23:47 [facility] 07/20 22:27 Order name: Urine Culture [facility] 07/20 23:40 Order name: Influenza Screen (a \T\ B); Complete Time: 00:27 [facility] 07/21 03:03 Order name: CBC with Automated Diff [facility] 07/21 03:03 Order name: CBC with Automated Diff [facility] 07/21 03:03 Order name: Comprehensive Metabolic Panel [facility] 07/21 03:03 Order name: Comprehensive Metabolic Panel [facility] 07/20 22:27 Order name: XRAY Chest (1 view); Complete Time: 23:35 [facility] 07/20 22:27 Order name: EKG; Complete Time: 22:27 [facility] 07/20 22:27 Order name: Cardiac monitoring; Complete Time: 22:40 [facility] 07/20 22:27 Order name: EKG - Nurse/Tech; Complete Time: 22:41 [facility] 07/20 23:37 Order name: CT Chest Abdomen Pelvis W/O Contrast: no iv no oral [facility] 07/20 23:39 Order name: CT Head Brain wo Cont [facility] 07/21 03:03 Order name: CONS Pharmacy Consult [facility] 07/21 03:03 Order name: Occupational Therapy Consult [facility] 07/21 03:03 Order name: Regular [facility] 07/21 03:03 Order name: Troponin I [facility] 07/21 03:03 Order name: Troponin I [facility] 07/21 03:03 Order name: Troponin I [facility] 07/20 22:27 Order name: IV Saline Lock; Complete Time: 23:09 [facility] 07/20 22:27 Order name: Labs collected and sent; Complete Time: 23:09 [facility] 07/20 22:27 Order name: O2 Per Protocol; Complete Time: 23:09 [facility] 07/20 22:27 Order name: O2 Sat Monitoring; Complete Time: 23:09 [facility] 07/20 22:27 Order name: Urine Dipstick-Ancillary (obtain specimen); Complete Time: 02:00 [facility] Administered Medications: 23:05 Drug: NS 0.9% 1000 ml Route: IV; Rate: 125 ml/hr; Site: right forearm; ea 07/21 02:00 Follow up: IV Status: Infusion continued upon admission 07/20 23:48 CANCELLED (Duplicate Order): Magnesium Sulfate 1 grams IVPB once over 1 hrs [facility] 07/21 01:57 Drug: Aspirin 162 mg Route: PO; ea 02:00 Follow up: Response: No adverse reaction ea 01:57 Drug: foLIC Acid 1 mg Route: IVPB; Site: right forearm; ea 02:00 Follow up: IV Status: Completed infusion ea Disposition: 07/22/19 01:33 Hospitalization ordered by Rhona Morfin for Inpatient Admission. Preliminary diagnosis are Hypotension, Weakness, Altered mental status, unspecified - resolved, Volume depletion. - Bed requested for Telemetry/MedSurg (Inpatient). - Status is Inpatient Admission. - Condition is Fair. - Problem is new. - Symptoms have improved. Signatures: Dispatcher [employer] EDAL Ramón Kaufman MD MD cha Garcia, Cindy, RN RN Ranjana Watson RN RN ea Harris, Amy, RN RN Corrections: (The following items were deleted from the chart) 07/20 23:48 23:44 Magnesium Sulfate 1 grams IVPB once over 1 hrs ordered. [facility] 07/21 01:57 01:33 Hospitalization Ordered by Rhona Morfin MD for Inpatient Admission. Preliminary [facility] diagnosis is Hypotension; Weakness; Altered mental status, unspecified - resolved. Bed requested for Telemetry/MedSurg (Inpatient). Status is Inpatient Admission. Condition is Fair. Problem is new. Symptoms have improved. [facility] 03:18 01:57 07/22/2019 01:33 Hospitalization Ordered by hRona Morfin MD for Inpatient Admission. Preliminary diagnosis is Hypotension; Weakness; Altered mental status, unspecified - resolved; Volume depletion. Bed requested for Telemetry/MedSurg (Inpatient). Status is Inpatient Admission. Condition is Fair. Problem is new. Symptoms have improved. [facility] 03:47 03:18 07/22/2019 01:33 Hospitalization Ordered by Rhona Morfin MD for Inpatient Admission. Preliminary diagnosis is Hypotension; Weakness; Altered mental status, unspecified - resolved; Volume depletion. Bed requested for Telemetry/MedSurg (Inpatient). Status is Inpatient Admission. Condition is Fair. Problem is new. Symptoms have improved. cg
--- NOTE | 2019-07-22 01:34 | ER ---
Nurse's Notes [facility] Name: Linsey Mcdonnell Age: 84 yrs Sex: Male : 1935 Arrival Date: 07/21/2019 Time: 22:24 Bed 2 Private MD: Diagnosis: Hypotension;Weakness;Altered mental status, unspecified-resolved;Volume depletion Presentation: 07/20 22:30 Chief complaint: EMS states: Toned out to carriage in, facility staff reported pt was ea altered and complaining of generalized weakness. Upon arrival EMS reports pt was alert and oriented x 4. Coronavirus screen: The patient has NOT traveled to a country currently being monitored by the CDC within the last 14 days. Proceed with normal triage procedures. Ebola Screen: No symptoms or risks identified at this time. Initial Sepsis Screen: Does the patient meet any 2 criteria? No. Patient's initial sepsis screen is negative. Does the patient have a suspected source of infection? No. Patient's initial sepsis screen is negative. Risk Assessment: Do you want to hurt yourself or someone else? Patient reports no desire to harm self or others. 22:30 Method Of Arrival: EMS: [facility] ea 22:30 Acuity: GILMAR 3 ea Historical: - Allergies: 23:20 NKA; ea - Home Meds: 23:20 benzonatate 200 mg Oral cap [Active]; cetirizine 10 mg Oral tab 1 tab once daily ea [Active]; docusate sodium 100 mg Oral cap 1 cap 2 times per day [Active]; donepezil 10 mg Oral tab 1 tab once daily [Active]; magnesium oxide 400 mg Oral cap [Active]; modafinil 100 mg Oral tab [Active]; Myrbetriq 50 mg Oral Tb24 1 tab once daily [Active]; pantoprazole 40 mg Oral TbEC 1 tab once daily [Active]; tamsulosin 0.4 mg Oral cp24 1 cap once daily [Active]; - PMHx: 23:20 impaction; GERD; Dementia; COPD; Bronchitis; BLIND; allergies; ea - Immunization history:: Adult Immunizations up to date. - Social history:: Smoking status: Patient denies any tobacco usage or history of. Screenin:35 Abuse screen: Denies threats or abuse. Nutritional screening: No deficits noted. ea Tuberculosis screening: No symptoms or risk factors identified. Fall Risk IV access (20 points). Assessment: 22:45 General: Appears in no apparent distress. Behavior is appropriate for age. Pain: ea Complains of pain in generalized pain. Neuro: Level of Consciousness is awake, alert, obeys commands, Oriented to person, place, time. Respiratory: Airway is patent Respiratory effort is even, unlabored, Respiratory pattern is regular, symmetrical. EENT: Reports Pt reports he is blind. Derm: Skin is pink, warm \T\ dry. 23:41 Reassessment: Patient and/or family updated on plan of care and expected duration. Pain ea level reassessed. Patient is alert, oriented x 3, equal unlabored respirations, skin warm/dry/pink. 07/21 00:11 Reassessment: Patient and/or family updated on plan of care and expected duration. Pain ea level reassessed. Patient is alert, oriented x 3, equal unlabored respirations, skin warm/dry/pink. Pt returned from CT. 01:30 Reassessment: Patient and/or family updated on plan of care and expected duration. Pain ea level reassessed. Awaiting on room assignment. 02:53 Reassessment: Patient and/or family updated on plan of care and expected duration. Pain ea level reassessed. Patient is alert, oriented x 3, equal unlabored respirations, skin warm/dry/pink. Awaiting on room assignment. 03:38 Reassessment: Patient and/or family updated on plan of care and expected duration. Pain ah level reassessed. Patient is alert, oriented x 3, equal unlabored respirations, skin warm/dry/pink. Pt admitted to second floor, left ED via stretcher per tech, pt tolerating well. Vital Signs: 07/20 22:30 BP 108 / 71; Pulse 82; Resp 18; Temp 98; Pulse Ox 100% on R/A; ea 23:38 BP 102 / 61; Pulse 83; Resp 18; Pulse Ox 99% ; ea 07/21 01:00 BP 107 / 77; Pulse 65; Resp 19; Pulse Ox 97% ; ah 01:00 BP 101 / 73; Pulse 86; Resp 18; Pulse Ox 100% on R/A; ah 02:30 BP 116 / 75; Pulse 82; Resp 18; Pulse Ox 98% ; 03:30 BP 113 / 72; Pulse 78; Resp 19; Temp 97.6; Pulse Ox 95% on R/A; ED Course: 07/20 22:24 Patient arrived in ED. cf2 22:24 Ramón Kaufman MD is Attending Physician. stanton 22:35 Triage completed. ea 22:36 Arm band placed on right wrist. Patient placed in an exam room, on a stretcher, on ea pulse oximetry. 22:36 Patient has correct armband on for positive identification. Placed in gown. Bed in low ea position. Call light in reach. school bus monitor on. Pulse ox on. NIBP on. 22:40 Ranjnaa Watson RN is Primary Nurse. ea 22:53 XRAY Chest (1 view) In Process Unspecified. EDMS 07/21 00:09 Maintain EMS IV. Dressing intact. Good blood return noted. Site clean \T\ dry. Gauge \T\ ea site: 20 G to right forearm. 00:53 CT Chest Abdomen Pelvis W/O Contrast: no iv no oral In Process Unspecified. EDMS 00:53 CT Head Brain wo Cont In Process Unspecified. EDMS 01:31 Rhona Morfin MD is Hospitalizing Provider. stanton 01:58 No provider procedures requiring assistance completed. ea 01:59 Patient admitted, IV remains in place. ea Administered Medications: 07/20 23:05 Drug: NS 0.9% 1000 ml Route: IV; Rate: 125 ml/hr; Site: right forearm; ea 07/21 02:00 Follow up: IV Status: Infusion continued upon admission ea 07/20 23:48 CANCELLED (Duplicate Order): Magnesium Sulfate 1 grams IVPB once over 1 hrs [place] 07/21 01:57 Drug: Aspirin 162 mg Route: PO; ea 02:00 Follow up: Response: No adverse reaction ea 01:57 Drug: foLIC Acid 1 mg Route: IVPB; Site: right forearm; ea 02:00 Follow up: IV Status: Completed infusion ea Outcome: 01:33 Decision to Hospitalize by Provider. stanton 01:58 Condition: stable ea 01:58 Instructed on the need for admit, Demonstrated understanding of instructions. 03:44 Admitted to Med/surg accompanied by tech, via stretcher, with chart, Report called to jin Chilel RN 03:47 Patient left the ED. Signatures: Dispatcher [employer] EDCO Ramón Kaufman MD MD cha Antunez, Ranjana, RN RN Cuauhtemoc Davis 2 Lisa Mccracken RN RN Corrections: (The following items were deleted from the chart) 00:14 00:11 Reassessment: Patient and/or family updated on plan of care and expected ea duration. Pain level reassessed. Patient is alert, oriented x 3, equal unlabored respirations, skin warm/dry/pink. juan
[2019-07-22] MEDS ORDERED: ASPIRIN 81 MG CHEWABLE TABLET ONE (01:41)
[2019-07-22] MEDS ORDERED: FOLIC ACID 5 MG/ML VIAL ONE (01:42)
[2019-07-22] MEDS ORDERED: MORPHINE 2 MG/ML SYR IV PRN (02:54)
[2019-07-22] MEDS ORDERED: ONDANSETRON 4 MG/2 ML VIAL IV PRN (02:54)
[2019-07-22] MEDS ORDERED: Oxycodone HCl/Acetaminophen 1 TAB TAB PO PRN (02:57)
[2019-07-22] MEDS ORDERED: HYDRALAZINE HCL 20 MG/ML VIAL IV PRN (02:57)
[2019-07-22] MEDS ORDERED: MELATONIN 5 MG TABLET PO PRN (02:57)
[2019-07-22] MEDS ORDERED: NA CHLORIDE 0.9% 1,000 ML IV SCH (03:00)
[2019-07-22 04:10] VITALS: BMI 29.6
[2019-07-22] MEDS: CEFTRIAXONE/SWI 1gm 1 GM/10 ML SYR IV SCH (04:52)
--- NOTE | 2019-07-22 05:02 | HP ---
Date of Admission: 07/22/2019 Presenting Complaint: Disorientation, hypotension. History Of Present Illness: Linsey Mcdonnell is a pleasant 84-year-old male with past medic al history of COPD, dementia, a resident in an assisted living facility, legally blind, GERD, bladder dysfunction, previously controlled on oxybutynin. Patient presented to the ED after he was noted to have disorientation at the assisted living facility. Son describes the patient repeatedly kept sayi ng he needed to go to the bathroom even when the sitters were there and had helped him to the bathroo m. Upon sitting on the commode, he was noted to be leaning towards his left side and having tremors of his lower extremities. On arrival of the EMS, patient reportedly had systolic blood pressure in t he 80s and received 500 mL of normal saline with improvement in his blood pressure and also improveme nt in his mental status. On arrival in the ED, the blood pressure has improved to 110s. Patient is more conversant, alert and oriented now. Son describes that patient was recently started on Flomax a fter oxybutynin was discontinued by Dr. Townsend, urologist in [place]. Due to oxybutynin given, megan palencia has worsening constipation. He has been taking Flomax now for about 2 weeks. Over the last 4 d ays, patient was recently noticed to be using foul languages and his PCP has felt patient was having UTI and has started patient on Cipro since the last 3 days. The patient feels fine now. He denies a ny complaint at this time. Past Medical History: Significant for dementia, COPD, GERD, blindness, bladder dysfunction. Home Medications: Includes cetirizine, Aricept, magnesium, Protonix, Flomax 0.4 as well as benzonata te. Allergies: NO KNOWN DRUG ALLERGIES. Past Surgical History: None. Social History: Patient resides in an assisted living facility, but . He ambulates with t he aid of a talking watch that also gives him geolocation. Review of Systems: Poor, but patient denies every other systems questions asked x14. Family History: Noncontributory. Physical Examination: General: Elderly male lying in bed, eyes closed, but conversant. HEENT: Head atraumatic, normocephalic. Pupils equal, reactive to light. Moist, but slightly dry or al mucosa. Neck: No JVD. No carotid bruit. Respiratory: Good air entry. No crepitation. Cardiovascular: S1, S2. Rate and rhythm regular. GI: Abdomen full, soft, nontender. Bowel sounds positive. No suprapubic fullness. : Normal external genitalia. Musculoskeletal: No pedal edema. No calf tenderness. Neuro: Patient is conversant, although only answers to questions. Alert and oriented x3, but unable to tell time, unable to tell date, unable to tell day of the month, but able to tell months of the y ear, although son states his watch usually tells him the date, which he did not have with him. Gait not tested. Current Vitals: Blood pressure of 115/72, respiratory rate of 18, pulse 83, temp 98, O2 saturation 1 00 on room air. Laboratory Data: Head CT shows no acute intracranial pathology. CT of the chest and abdomen was unr emarkable. WBC 7.5, platelets 269, neutrophils 74, hemoglobin 13, INR 1.1. Potassium 3.9, magnesium 2.2, creatinine 1.3. ProBNP is 30. EKG showed normal sinus rhythm, no significant ST changes. LVH pattern noted. Impression: 1.Transient altered mental status likely due to hypotension. 2.Hypotension, possibly related to recent tamsulosin/Flomax use. 3.Possible urinary tract infection. 4.Dementia. 5.Legal blindness. Plan: 1.We will admit patient to telemetry. We will do serial set of cardiac enzymes. We will monitor ov ernight. We will continue gentle IV fluids to maintain blood pressure. We will hold Flomax for now. We will obtain UA to rule out UTI. If UTI, then we will obtain culture. Patient was recently on C ipro, which may be interacting with Flomax. We will start patient on Rocephin for now. If the patie nt has UTI, then it is possible patient can be started on Flomax at the time of discharge. Given pat talha's dementia, we will give Geodon p.r.n. as needed. Case management for discharge planning. Ivkki ent may be able to go back to his current assisted living facility if infection ruled out. 2.DVT prophylaxis with subcutaneous Lovenox. 3.Advanced directives, patient is full code. Goals of care discussed with patient's son, who is agreeable. Total time spent is greater than 70 minutes. EO/MODL Voice ID: [id number]
--- NOTE | 2019-07-22 08:42 | EKG ---
Test Date: 2019-07-21 Test Time: 22:26:18 Counter Clerk: ROSARIO MEASUREMENT RESULTS: Intervals: Rate: 84 DE: 194 QRSD: 86 QT: 380 QTc: 449 Line [place]: P: 31 DE: 194 QRS: 27 T: 56 INTERPRETIVE STATEMENTS: Normal sinus rhythm Normal ECG Compared to ECG 07/06/2019 16:48:40 No significant changes Electronically Signed On 07-22-19 08:42:19 CDT by [employer]
[2019-07-22] MEDS: ENOXAPARIN 40 MG/0.4 ML SQ SCH (08:47)
[2019-07-22] MEDS ORDERED: CEFTRIAXONE 1 GM/NS 50 ML 1 GM/50 ML BAG IV SCH (09:00)
[2019-07-22] MEDS ORDERED: PNEUMOCOCCAL VACCINE 0.5 ML IMVAC ONE (09:00)
[2019-07-22] MEDS ORDERED: FAMOTIDINE 20 MG TAB PO SCH (09:00)
--- NOTE | 2019-07-22 11:42 | RAD REPORT ---
EXAM DESCRIPTION: Head Brain Wo Cont CLINICAL HISTORY: 84 years Male WEAKNESS TECHNIQUE: Contiguous axial CT images obtained through the brain without IV contrast. Coronal and sa gittal reformatted images also provided. This exam was performed according to our department optimization program which includes automated exp osure control, adjustment of the mA and/or kv according to patient size and/or use of iterative recon struction technique. COMPARISON: 09/08/2017 FINDINGS: There is no intracranial hemorrhage, extraaxial collection, or evidence of acute transcort ical infarction. Confluent areas of low attenuation within the periventricular and subcortical white matter are stable and compatible with chronic microvascular disease. There is stable moderate diffuse volume loss with out mass effect or midline shift. Vascular calcifications are noted. No lesion of the skull base or calvarium is identified. The parana louisa sinuses and mastoid air cells are clear. IMPRESSION: No acute intracranial abnormality. Stable chronic microvascular changes and volume loss. Electronically signed by: Shahrzad Younger MD 07/22/2019 1:00 AM CDT Due to temporary technical issues with the PACS/Fluency reporting system, reports are being signed by the in house radiologist as a courtesy to ensure prompt reporting. The interpreting radiologist is f ully responsible for the content of the report.
--- NOTE | 2019-07-22 11:44 | RAD REPORT ---
EXAM DESCRIPTION: CT Chest Abd Pelvis Wo Con CLINICAL HISTORY: 84 years Male Cough; abdominal distention TECHNIQUE: Contiguous axial images obtained through the chest, abdomen, and pelvis following intrave nous contrast administration. Coronal and sagittal reformatted images provided. This CT exam was performed according to our departmental dose-optimization program, which includes on e or more of the following dose reduction techniques: automated exposure control, adjustment of the m A and/or kV according to patient size, and/or use of iterative reconstruction technique. COMPARISON: No prior exams provided for comparison. FINDINGS: There are a few pleural-based pulmonary nodules in the right lung, measuring up to 7 mm. 6 mm right middle lobe pulmonary nodule. Mild bilateral atelectasis. The heart is normal in size without pericardial effusion. There is atherosclerosis without thoracic a ortic aneurysm. Moderate hiatal hernia. No lymphadenopathy in the chest. Pancreatic atrophy. The unenhanced liver, biliary tree, gallbladder, spleen, adrenal glands, kidneys, urinary bladder, an d osseous structures are normal. There is no bowel inflammation, obstruction, free intraperitoneal air, or ascites. Prior appendectomy and hysterectomy. Atherosclerosis without abdominal aortic aneurysm or retroperitoneal hemorrhage. Chronic degenerative changes in the thoracic and lumbar spine. No acute fracture in the chest, abdome n, or pelvis. IMPRESSION: Scattered pleural-based nodules measure up to 7 mm. 6 mm right middle lobe pulmonary nod ule. Recommend follow-up noncontrast chest CT at 3-6 months, then consider another at 18-24 months. Moderate hiatal hernia. No acute findings in the abdomen or pelvis. Electronically signed by: Shahrzad Younger MD 07/22/2019 1:12 AM CDT Due to temporary technical issues with the PACS/Fluency reporting system, reports are being signed by the in house radiologist as a courtesy to ensure prompt reporting. The interpreting radiologist is swapna bradleyly responsible for the content of the report.
[2019-07-22] MEDS: NA CHLORIDE 0.9% 1,000 ML IV SCH ×2 (12:00→23:28)
[2019-07-22] MEDS: SUCRALFATE 1 GM TABLET PO SCH ×3 (12:35→20:40)
[2019-07-22 12:51] LABS: Urine Appearance CLEAR; Urine Bilirubin NEGATIVE (NEG); Urine Blood NEGATIVE (NEG); Urine Color YELLOW; Urine Glucose NEGATIVE (NEG); Urine Protein NEGATIVE (NEG); Urine Specific Gravity 1.025 (1.005-1.030); Urine Urobilinogen 0.2 mg/dL (0.2-1.0)
--- NOTE | 2019-07-22 12:56 | PN ---
Date of Progress Note: 07/22/2019 Subjective: Patient seen and examined. Chart reviewed and case discussed with RN. Patient still somewhat confused. Gltbjxpt-cg-swc at the bedside, stating patient is not back to his baseline. Medications List: Reviewed. Code Status: Full. Physical Examination: Vital Signs: Temperature 97.5, heart rate 73, blood pressure 119/64, respirations 16, O2 94% on room air. General: Awake, oriented to self only, elderly male, ill-appearing. CV: S1, S2. Regular rate and rhythm. Peripheral pulses weak. Respiratory: Moving air well bilaterally. No wheezing or stridor. Gastrointestinal: Abdomen is soft, nontender, nondistended. Positive bowel sounds. Extremities: No clubbing, cyanosis, or edema. Neurologic: Nonfocal. Laboratory Data: Troponin less than 0.02 x3. Urine cultures pending. Influenza screen negative. Assessment And Plan: An 84-year-old male with: 1. Acute metabolic encephalopathy, likely due to hypotension and urinary tract infection, not back to his baseline. Head CT did not show any acute intracranial abnormality. 2. Acute hypotension may be due to dehydration. Blood pressure is now back in the 130s. We will resume his tamsulosin. 3. Probable urinary tract infection. Patient unable to give urine sample as of yet. We will have straight catheterization for sample. We will start on Rocephin empirically. Patient has failed outpatient treatment with Cipro. 4. Dementia, likely vascular dementia. No behavioral disturbance. 5. Legal blindness. 6. Benign prostatic hyperplasia. Patient is on Flomax. 7. Gastroesophageal reflux disease. We will resume home medications. 8. Chronic obstructive pulmonary disease. Albuterol as needed. 9. Deep venous thrombosis prophylaxis with Lovenox. Plan: Follow up on UA and culture, will likely discharge in the 24 hours depending on clinical response. ADDENDUM. Urinalysis reviewed patient does have: 1. Acute cystitis with failed outpatient treatment. Will continue IV antibiotics and follow up on cultures will likely expect multi-drug resistance as patient failed treatment with Cipro SA/MODL Voice ID: [id number] Report ID: [id number] [facility]ITAL[facility]
[2019-07-22 13:19] LABS: Urine Bacteria 20-50 /HPF (NONE SEEN); Urine Culture Reflex Order REFLEXED; Urine Mucus 1+ /HPF (NONE SEEN); Urine RBC <5 /HPF (NONE SEEN)
[2019-07-22] MEDS: DOCUSATE NA 100 MG CAP PO SCH (20:40)
[2019-07-23] MEDS: CEFTRIAXONE/SWI 1gm 1 GM/10 ML SYR IV SCH (03:32)
[2019-07-23 05:52] LABS: Absolute Lymphocytes (CBC) 1.2 K/uL (0.7-4.9); Basophils % 0.9 % (0-1.3); Hematocrit 38.2 % (39.6-49.0); Lymphocytes % 18.3 % (15.3-44.8); MPV 7.9 fL (7.6-11.3); RBC Red Blood Cell Count 4.22 M/uL (4.33-5.43)
[2019-07-23 06:05] LABS: Albumin 2.7 g/dL (3.4-5.0); Bilirubin Total 0.4 mg/dL (0.2-1.0); Potassium 3.8 mmol/L (3.5-5.1); Protein, Total 6.2 g/dL (6.4-8.2)
[2019-07-23] MEDS: SUCRALFATE 1 GM TABLET PO SCH (08:42)
[2019-07-23] MEDS: DOCUSATE NA 100 MG CAP PO SCH (08:42)
[2019-07-23] MEDS: ENOXAPARIN 40 MG/0.4 ML SQ SCH (08:43)
[2019-07-23] MEDS ORDERED: TAMSULOSIN 0.4 MG SR CAP PO SCH (09:00)
[2019-07-23] MEDS ORDERED: PANTOPRAZOLE 40MG TABLET PO SCH (09:00)
[2019-07-23] MEDS ORDERED: CETIRIZINE HCL 5 MG TABLET PO SCH (09:00)
[2019-07-23] MEDS ORDERED: HOME MED 1 EA UNK (Mirabegron [Myrbetriq] 50 MG) PO SCH (09:00)
[2019-07-23] MEDS ORDERED: MAGNESIUM CITRATE 300 ML BOT PO ONE (11:00)
[2019-07-23] MEDS ORDERED: BISACODYL 10 MG RECTAL SUPP PR ONE (11:00)
[2019-07-23 11:08] VITALS: BP 141/79; TEMP 98
[2019-07-23 11:10] VITALS: O2SAT 100
--- NOTE | 2019-07-23 23:30 | DS ---
Date of Discharge: 07/23/2019 Consultants: None. Admitting Diagnoses: 1.Acute metabolic encephalopathy. 2.Acute hypotension. 3.Urinary tract infection. 4.Dementia. 5.Legal blindness. Discharge Diagnoses: 1.Acute metabolic encephalopathy secondary to hypotension, urinary tract infection, now back to base line. 2.Acute hypotension secondary to dehydration, resolved. 3.Acute cystitis without hematuria, failed outpatient treatment with Cipro. 4.Dementia likely vascular. No behavioral disturbance. 5.Legal blindness. 6.Benign prostatic hyperplasia. Continue Flomax for blood pressure less than 120. 7.Gastroesophageal reflux disease, stable. 8.Chronic obstructive pulmonary disease, chronic bronchitis stable. Hospital Course: Patient is an 84-year-old male with past medical history of dementia, COPD, BPH, co mes in with confusion, hypotension with failed outpatient treatment of his UTI with Cipro. Patient w as started on IV fluids. Flomax was held. Repeat UA was done, which was positive. Cultures so far have shown no growth. This is likely due to his outpatient treatment with Cipro rendering the cultur e negative. The patient's kidney function improved. His hydration improved with IV fluids. His pathak sulosin was restarted due to his prostate problem. Patient was then doing well. His baseline mentat ion returned. His head CT scan was negative. His CT of the chest, abdomen, and pelvis did show some scattered pleural-based nodules measuring up to 7 mm and 6 mm right middle lobe nodule. Repeat CT s can was recommended in 3 months. Patient did well overall. He was then cleared for discharge. He w ill be sent back to nursing facility on oral antibiotics. Followup: Follow up with primary care physician in 2-3 days. Discharge Instructions: Return to ER for worsening condition. Repeat CT scan of the chest in 3 mónica hs for pulmonary nodules. Diet: Heart-healthy. Activity: Fall precautions. Physical Examination: General: Awake, alert, oriented x2, elderly male. CV: S1, S2. Respiratory: Moving air well bilaterally. Abdomen: Soft, nontender, nondistended. Positive bowel sounds. Extremities: No clubbing, cyanosis, or edema. Neurologic: Nonfocal. SA/MODL Voice ID: [id number] Report ID: [id number]
[2019-07-24] MEDS ORDERED: modafiniL 100 MG TAB PO SCH (09:00)
== END 2019-07-23 11:20 | disposition home or self-care (01) ==
LOC: ER 22:19 → ERHOLD 07-22 03:19 → 2ND 07-22 03:24 → OBSVTOIN 07-22 18:29 → INTOOBSV 07-22 18:29
PROVIDERS: ADMIT Internal Medicine; ATTEND Family Medicine
DX: G93.41 Metabolic encephalopathy (principal); I95.9 Hypotension, unspecified; N30.00 Acute cystitis without hematuria; E86.0 Dehydration; N40.0 Benign prostatic hyperplasia without lower urinary tract symptoms; J44.9 Chronic obstructive pulmonary disease, unspecified; K21.9 Gastro-esophageal reflux disease without esophagitis; Z23 Encounter for immunization; F03.90 Unspecified dementia, unspecified severity, without behavioral disturbance, psychotic disturbance, mood disturbance, and anxiety; H54.8 Legal blindness, as defined in USA; R91.8 Other nonspecific abnormal finding of lung field; K44.9 Diaphragmatic hernia without obstruction or gangrene; Z79.899 Other long term (current) drug therapy
CPT/HCPCS: 96361; 93005; 87088; 85025 ×2; 81001; 80048; 36415 ×2; 83735; 85610; 80076; 84484 ×3; 83690; 80053; 83880; 87804 ×2; 70450; 71250; 74176; 71045; 90471; 90670; 97116; 97161; 97530; 96374; 99285; J1650 ×2; J0696 ×2; J7030 ×3; G0378 ×3; 87086

== ENCOUNTER 2020-03-31 14:41 | Observation (INO) | payer OTHER, MEDICARE ==
[2020-03-31 15:26] LABS: Absolute Lymphocytes (CBC) 1.2 K/uL (0.7-4.9); Basophils % 0.8 % (0-1.3); Hematocrit 43.8 % (39.6-49.0); Lymphocytes % 19.8 % (15.3-44.8); MPV 7.8 fL (7.6-11.3); RBC Red Blood Cell Count 4.96 M/uL (4.33-5.43)
--- NOTE | 2020-03-31 15:35 | RAD REPORT ---
EXAM DESCRIPTION: CT - Head Brain Wo Cont - 03/31/2020 3:25 pm CLINICAL HISTORY: SYNCOPE Syncope, head injury COMPARISON: Head Brain Wo Cont dated 07/22/2019 TECHNIQUE: All CT scans are performed using dose optimization technique as appropriate and may inclu de automated exposure control or mA/KV adjustment according to patient size. FINDINGS: No intracranial hemorrhage, hydrocephalus or extra-axial fluid collection.Advanced chronic microvascular ischemia noted, unchanged.No areas of brain edema or evidence of midline shift. The paranasal sinuses and mastoids are clear. The calvarium is intact. IMPRESSION: No acute intracranial abnormality.
[2020-03-31 15:43] LABS: Protime INR 1.06
[2020-03-31 15:44] LABS: BUN Blood Urea Nitrogen 23 mg/dL (7-18); Bicarbonate 28 mmol/L (21-32); Creatine Phosphokinase 49 U/L (39-308); Glucose Level 158 mg/dL (74-106); Magnesium 2.4 mg/dL (1.8-2.4); Potassium 3.9 mmol/L (3.5-5.1); Sodium Level 137 mmol/L (136-145); Troponin (Emerg Dept Use Only) < 0.02 ng/mL (0.0-0.045)
[2020-03-31] MEDS ORDERED: NA CHLORIDE 0.9% 500 ML ONE (16:20)
--- NOTE | 2020-03-31 17:25 | EDPHYS ---
Physician Documentation [facility] Name: Linsey Mcdonnell Age: 85 yrs Sex: Male : 1935 Arrival Date: 03/31/2020 Time: 14:42 Bed 4 Private MD: ED Physician Vinh Laureano HPI: 03/31 15:06 This 85 yrs old Male presents to ER via EMS with complaints of possible rn syncope. 15:06 The patient has experienced syncope, became unresponsive. Onset: The symptoms/episode rn began/occurred just prior to arrival. Duration: The patient has had multiple episodes, that last 2 minute(s). Context: the episode(s) was witnessed, by family, occurred at a detention or assisted living facility, occurred while the patient was at rest, Just prior to the episode the patient experienced no apparent symptoms. Associated injury: The patient did not suffer any apparent associated injury. Associated signs and symptoms: Pertinent positives: confusion, Pertinent negatives: abdominal pain, ataxia, chest pain, combativeness, diaphoresis, diarrhea, headache, lightheadedness. Current symptoms: Currently, the patient is not experiencing any symptoms. The patient has not experienced similar symptoms in the past. The patient has not recently seen a physician. Family reports seated, at cafeteria, became unresponsive, family noticed right arm and leg shaking, slumped over in chair, lasted for about 2 minutes, now back to normal. Pt denies preceding chest pain/sob/cough/abd pain/vomiting/diarrhea. Son here and states now back to baseline.. Historical: - Allergies: 14:47 NKA; tw2 - Home Meds: 14:47 donepezil 10 mg Oral tab 1 tab once daily [Active]; docusate sodium 100 mg Oral cap 1 tw2 cap 2 times per day [Active]; magnesium oxide 400 mg Oral cap [Active]; Myrbetriq 50 mg Oral Tb24 1 tab once daily [Active]; pantoprazole 40 mg Oral TbEC 1 tab once daily [Active]; tamsulosin 0.4 mg Oral cp24 1 cap once daily [Active]; - PMHx: 14:47 allergies; COPD; Bronchitis; BLIND; Dementia; GERD; impaction; tw2 - Immunization history:: Adult Immunizations. - Social history:: Smoking status: . - Family history:: not pertinent. - Hospitalizations: : No recent hospitalization is reported. ROS: 15:06 Constitutional: Negative for fever, chills, and weight loss, Eyes: Negative for injury, rn pain, redness, and discharge, ENT: Negative for injury, pain, and discharge, Neck: Negative for injury, pain, and swelling, Cardiovascular: Negative for chest pain, palpitations, and edema, Respiratory: Negative for shortness of breath, cough, wheezing, and pleuritic chest pain, Abdomen/GI: Negative for abdominal pain, nausea, vomiting, diarrhea, and constipation, MS/Extremity: Negative for injury and deformity, Skin: Negative for injury, rash, and discoloration, Neuro: Negative for headache, weakness, numbness, tingling, and seizure. Exam: 15:06 Constitutional: This is a well developed, well nourished patient who is awake, alert, rn and in no acute distress. Head/Face: Normocephalic, atraumatic. Neck: No Meningismus. Cardiovascular: Regular rate and rhythm. No pulse deficits. Respiratory: No increased work of breathing, no retractions or nasal flaring. Abdomen/GI: soft, non-tender Skin: Warm, dry MS/ Extremity: Pulses equal, no cyanosis. Neurovascular intact. Full, normal range of motion. Equal circumference. Neuro: Awake and alert, GCS 15, oriented to person, place, and situation. Cranial nerves II-XII grossly intact. Motor strength 5/5 in all extremities. Sensory grossly intact. Cerebellar exam normal. Vital Signs: 14:44 BP 101 / 58; Pulse 61; Resp 16; Temp 97.9(O); Pulse Ox 97% on R/A; Weight 81.65 kg (R); tw2 Height 5 ft. 7 in. (170.18 cm); Pain 0/10; 15:40 BP 105 / 56; Pulse 66; Resp 17; Pulse Ox 97% on R/A; tw2 16:35 BP 105 / 49; Pulse 72; Resp 15; Pulse Ox 100% on R/A; tw2 17:35 BP 100 / 67; Pulse 69; Resp 17; Pulse Ox 99% on R/A; tw2 18:58 BP 103 / 68; Pulse 70; Resp 16; Pulse Ox 97% on R/A; tw2 19:43 BP 99 / 65; Pulse 72; Resp 18; Temp 98.1; Pulse Ox 97% ; rr5 14:44 Body Mass Index 28.19 (81.65 kg, 170.18 cm) tw2 MDM: 14:46 Patient medically screened. rn 17:20 Differential Diagnosis: cardiac arrhythmia, cerebrovascular accident, idiopathic rn syncope, seizure, transient ischemic attack, vasovagal episode. Data reviewed: vital signs, nurses notes, lab test result(s), EKG, radiologic studies, CT scan, and as a result, I will admit patient. Counseling: I had a detailed discussion with the patient and/or guardian regarding: the historical points, exam findings, and any diagnostic results supporting the discharge/admit diagnosis, lab results, radiology results, the need for further work-up and treatment in the hospital. Response to treatment: the patient's symptoms have markedly improved after treatment, the patient's condition has returned to base line, and as a result, I will admit patient. Admission orders: after a detailed discussion of the patient's condition and case, the admit orders are written by me. ED course: No clear etiology found on w/u, is back to baseline, had 2 episodes witnessed, possible syncope vs TIA, admitted to Dr. Antony. . 03/31 15:06 Order name: Basic Metabolic Panel rn 03/31 15:06 Order name: CBC with Diff rn 03/31 15:06 Order name: CPK; Complete Time: 15:47 03/31 15:06 Order name: Magnesium; Complete Time: 15:47 03/31 15:06 Order name: Protime (+inr); Complete Time: 16:47 03/31 15:06 Order name: Ptt, Activated; Complete Time: 16:47 03/31 15:06 Order name: Troponin (emerg Dept Use Only); Complete Time: 15:47 rn 03/31 15:06 Order name: Urine Microscopic Only rn 03/31 15:06 Order name: Basic Metabolic Panel; Complete Time: 15:47 EDMS 03/31 15:06 Order name: CBC with Automated Diff; Complete Time: 15:47 EDFL 03/31 17:37 Order name: Urine Dipstick--Ancillary (enter results) 03/31 18:08 Order name: CBC with Automated Diff [facility] 03/31 18:08 Order name: CBC with Automated Diff EDFL 03/31 18:08 Order name: Comprehensive Metabolic Panel [facility] 03/31 15:06 Order name: CT Head Brain wo Cont; Complete Time: 15:47 rn 03/31 15:06 Order name: EKG; Complete Time: 15:07 rn 03/31 15:06 Order name: Cardiac monitoring; Complete Time: 15:19 rn 03/31 15:06 Order name: EKG - Nurse/Tech; Complete Time: 15:19 rn 03/31 15:06 Order name: IV Saline Lock; Complete Time: 15:19 rn 03/31 15:06 Order name: Labs collected and sent; Complete Time: 15:19 rn 03/31 15:06 Order name: NPO; Complete Time: 15:46 rn 03/31 15:06 Order name: O2 Per Protocol; Complete Time: 15:08 rn 03/31 15:06 Order name: O2 Sat Monitoring; Complete Time: 15:08 rn 03/31 15:06 Order name: Urine Dipstick-Ancillary (obtain specimen); Complete Time: 18:57 rn 03/31 18:08 Order name: CONS Pharmacy Consult [facility] 03/31 18:08 Order name: Regular [facility] 03/31 18:08 Order name: Comprehensive Metabolic Panel [facility] 03/31 19:29 Order name: COVID-19 rr5 Administered Medications: 16:08 Drug: NS 0.9% 500 ml Route: IV; Rate: bolus; Site: right antecubital; tw2 17:30 Follow up: Response: No adverse reaction; IV Status: Completed infusion; IV Intake: tw2 500ml Disposition: 03/31/20 17:23 Hospitalization ordered by Akbar Antony for Observation. Preliminary diagnosis are Syncope and collapse, Altered mental status, unspecified. - Bed requested for Telemetry/MedSurg (observation). - Status is Observation. rr5 - Condition is Stable. - Problem is new. - Symptoms have improved. Signatures: Dispatcher [employer] EDFL Vinh Laureano MD MD rn Garcia, Cindy, RN RN Lucie Romero RN RN tw2 Manish Yousif RN RN rr5 Corrections: (The following items were deleted from the chart) 19:08 17:23 Hospitalization Ordered by Akbar Antony MD for Observation. Preliminary cg diagnosis is Syncope and collapse; Altered mental status, unspecified. Bed requested for Telemetry/MedSurg (observation). Status is Observation. Condition is Stable. Problem is new. Symptoms have improved. rn 19:58 19:08 03/31/2020 17:23 Hospitalization Ordered by Akbar Antony MD for Observation. rr5 Preliminary diagnosis is Syncope and collapse; Altered mental status, unspecified. Bed requested for Telemetry/MedSurg (observation). Status is Observation. Condition is Stable. Problem is new. Symptoms have improved. cg
--- NOTE | 2020-03-31 17:25 | ER ---
Nurse's Notes [facility] Name: Linsey Mcdonnell Age: 85 yrs Sex: Male : 1935 Arrival Date: 03/31/2020 Time: 14:42 Bed 4 Private MD: Diagnosis: Syncope and collapse;Altered mental status, unspecified Presentation: 03/31 14:44 Chief complaint: EMS states: pt was out to eat with his family, they described the tw2 episode that lasted about 10 minutes like a TIA where he was fixed in one direction and his right side was twitching, when we arrived he was a\T\o x4, equal strength b/l, vs stable. BGL 155, Hx: blindness, bph. Coronavirus screen: At this time, the client does not indicate any symptoms associated with coronavirus-19. Ebola Screen: Patient denies travel to an Ebola-affected area in the 21 days before illness onset. Initial Sepsis Screen: Does the patient meet any 2 criteria? No. Patient's initial sepsis screen is negative. Does the patient have a suspected source of infection? No. Patient's initial sepsis screen is negative. Risk Assessment: Do you want to hurt yourself or someone else? Patient reports no desire to harm self or others. Onset of symptoms was March 31, 2020. 14:44 Method Of Arrival: EMS: [facility] tw2 14:44 Acuity: GILMAR 3 tw2 Triage Assessment: 14:47 General: Appears in no apparent distress. obese, well groomed, Behavior is calm, tw2 cooperative, appropriate for age. Pain: Denies pain. 14:56 EENT: No signs and/or symptoms were reported regarding the EENT system. EENT: Reports tw2 blindness. Neuro: Level of Consciousness is awake, alert, obeys commands, Oriented to person, place, time, situation. Cardiovascular: Heart tones S1 S2 Patient's skin is warm and dry. Respiratory: Airway is patent Respiratory effort is even, unlabored, Respiratory pattern is regular, symmetrical, Breath sounds are clear bilaterally. GI: No signs and/or symptoms were reported involving the gastrointestinal system. Abdomen is round non-distended, obese, Bowel sounds present X 4 quads. : No signs and/or symptoms were reported regarding the genitourinary system. Derm: No signs and/or symptoms reported regarding the dermatologic system. Skin is fragile, is thin, Skin is dry, Skin temperature is warm. Musculoskeletal: Range of motion: intact in all extremities. Historical: - Allergies: 14:47 NKA; tw2 - Home Meds: 14:47 donepezil 10 mg Oral tab 1 tab once daily [Active]; docusate sodium 100 mg Oral cap 1 tw2 cap 2 times per day [Active]; magnesium oxide 400 mg Oral cap [Active]; Myrbetriq 50 mg Oral Tb24 1 tab once daily [Active]; pantoprazole 40 mg Oral TbEC 1 tab once daily [Active]; tamsulosin 0.4 mg Oral cp24 1 cap once daily [Active]; - PMHx: 14:47 allergies; COPD; Bronchitis; BLIND; Dementia; GERD; impaction; tw2 - Immunization history:: Adult Immunizations. - Social history:: Smoking status: . - Family history:: not pertinent. - Hospitalizations: : No recent hospitalization is reported. Screenin:48 Abuse screen: Denies threats or abuse. Nutritional screening: No deficits noted. tw2 Tuberculosis screening: No symptoms or risk factors identified. Fall Risk Secondary diagnosis (15 points) impaired mobility, blindness. Assessment: 14:55 Reassessment: provider at bedside at this time. pts son at bedside at this time. tw2 14:56 Reassessment: see triage assessment. tw2 15:43 Reassessment: Patient appears in no apparent distress at this time. No changes from tw2 previously documented assessment. Patient and/or family updated on plan of care and expected duration. Pain level reassessed. Patient is alert, oriented x 3, equal unlabored respirations, skin warm/dry/pink. 16:35 Reassessment: Patient appears in no apparent distress at this time. No changes from tw2 previously documented assessment. Patient and/or family updated on plan of care and expected duration. Pain level reassessed. Patient is alert, oriented x 3, equal unlabored respirations, skin warm/dry/pink. 17:35 Reassessment: Patient appears in no apparent distress at this time. No changes from tw2 previously documented assessment. Patient and/or family updated on plan of care and expected duration. Pain level reassessed. Patient is alert, oriented x 3, equal unlabored respirations, skin warm/dry/pink. 18:58 Reassessment: Patient appears in no apparent distress at this time. No changes from tw2 previously documented assessment. Patient and/or family updated on plan of care and expected duration. Pain level reassessed. Patient is alert, oriented x 3, equal unlabored respirations, skin warm/dry/pink. 19:10 General: Appears in no apparent distress. comfortable, Behavior is calm, cooperative. rr5 Pain: Denies pain. Neuro: Level of Consciousness is awake, alert, Oriented to person, place, time. Cardiovascular: Capillary refill < 3 seconds Patient's skin is warm and dry. Respiratory: Airway is patent Respiratory effort is even, unlabored, Respiratory pattern is regular, symmetrical. 19:10 GI: No signs and/or symptoms were reported involving the gastrointestinal system. : rr5 No signs and/or symptoms were reported regarding the genitourinary system. EENT: Parent/caregiver reports the patient having blind. Derm: Skin is fragile, is thin, Skin temperature is warm. Musculoskeletal: Capillary refill < 3 seconds. 19:40 Reassessment: Patient appears in no apparent distress at this time. Patient is alert, rr5 oriented x 3, equal unlabored respirations, skin warm/dry/pink. transfer to room 211 awake alert no complaints made. Vital Signs: 14:44 BP 101 / 58; Pulse 61; Resp 16; Temp 97.9(O); Pulse Ox 97% on R/A; Weight 81.65 kg (R); tw2 Height 5 ft. 7 in. (170.18 cm); Pain 0/10; 15:40 BP 105 / 56; Pulse 66; Resp 17; Pulse Ox 97% on R/A; tw2 16:35 BP 105 / 49; Pulse 72; Resp 15; Pulse Ox 100% on R/A; tw2 17:35 BP 100 / 67; Pulse 69; Resp 17; Pulse Ox 99% on R/A; tw2 18:58 BP 103 / 68; Pulse 70; Resp 16; Pulse Ox 97% on R/A; tw2 19:43 BP 99 / 65; Pulse 72; Resp 18; Temp 98.1; Pulse Ox 97% ; rr5 14:44 Body Mass Index 28.19 (81.65 kg, 170.18 cm) tw2 ED Course: 14:42 Patient arrived in ED. tw2 14:42 Arm band placed on. tw2 14:45 Patient has correct armband on for positive identification. Bed in low position. Call mh5 light in reach. Side rails up X2. Warm blanket given. bus driver/monitor on. Pulse ox on. 14:46 Triage completed. tw2 14:46 Vinh Laureano MD is Attending Physician. rn 14:48 Lucie Romero, MERLENE is Primary Nurse. tw2 15:15 Initial lab(s) drawn, by me, sent to lab. Inserted saline lock: 20 gauge in right tw2 antecubital area, using aseptic technique. Blood collected. 15:25 CT Head Brain wo Cont In Process Unspecified. EDMS 17:23 Akbar Antony MD is Hospitalizing Provider. rn 19:00 Report given to MERLENE Badillo, MERLENE Willett and MERLENE Hammond. tw2 19:38 covid. rr5 19:43 No provider procedures requiring assistance completed. Patient admitted, IV remains in rr5 place. intact, No redness/swelling at site. Administered Medications: 16:08 Drug: NS 0.9% 500 ml Route: IV; Rate: bolus; Site: right antecubital; tw2 17:30 Follow up: Response: No adverse reaction; IV Status: Completed infusion; IV Intake: tw2 500ml Intake: 17:30 IV: 500ml; Total: 500ml. tw2 Outcome: 17:23 Decision to Hospitalize by Provider. rn 19:43 Admitted to Med/surg accompanied by rachid, via stretcher, room 211, with chart, Report rr5 called to krissy 19:43 Condition: stable 19:43 Instructed on the need for admit. 19:58 Patient left the ED. rr5 Addendum: 04/04/2020 12:13 Addendum: COVID-19 Result: Negative result given to RN to notify pt. Attempted to a a5 contact pt regarding negative COVID-19 swab results. Other: Attempt made at 1207 and at 1212, someone picked up both times but didn't speak. Signatures: Dispatcher [employer] EDMO Vinh Laureano MD MD rn Calderon, Audri, RN RN 5 Lucie Romero RN RN 2 Wendy Ahn 5 Manish Yousif RN RN rr5 Corrections: (The following items were deleted from the chart) 03/31 14:48 14:44 Chief complaint: EMS states: pt was out to eat with his family, they described tw2 the episode that lasted about 10 minutes like a TIA where he was fixed in one direction and his right side was twitching, when we arrived he was a\T\o x4, vs stable. BGL 155, Hx: blindness, bph tw2 14:56 14:55 Reassessment: provider at bedside at this time. tw2 tw 19:06 19:05 Report given to AbyRN, MERLENE Willett and MERLENE Hammond tw2 tw2
--- NOTE | 2020-03-31 18:12 | P.HP ---
Certification for Inpatient Patient admitted to: Observation With expected LOS: <2 Midnights Practitioner: I am a practitioner with admitting privileges, knowledge of patient current condition, hospital course, and medical plan of care. Services: Services provided to patient in accordance with Admission requirements found in Title 42 Section 412.3 of the Code of Federal Regulations Patient History Date of Service: 04/01/20 Reason for admission: Syncope History of Present Illness: Patient is 85 years of age was doing well was eating in a restaurant according to the daughter he has right-sided started shaking with his arms and legs and need his head drooped over was brought here to the emergency room he has never had prior seizures no prior history of stroke or cardiovascular problems he is at his baseline right now as alert responsive cooperative denies any complaints Allergies No Known Allergies Allergy (Verified 05/24/17 06:03) Home Medications: Donepezil [Aricept*] 10 mg PO DAILY 06/11/17 Benzonatate 200 mg PO TID 07/22/19 Cetirizine HCl [Zyrtec] 10 mg PO DAILY 07/22/19 Docusate Sodium 100 mg PO BID 07/22/19 Magnesium Oxide [Mag-Oxide] 400 mg PO BEDTIME 07/22/19 Mirabegron [Myrbetriq] 50 mg PO DAILY 07/22/19 Modafinil [Provigil] 100 mg PO SEECOM 07/22/19 Ondansetron [Zofran (Odt)*] 4 mg PO QIDP PRN 07/22/19 Pantoprazole [Protonix Tab*] 1 tab PO DAILY 07/22/19 Sucralfate [Carafate] 10 ml PO QID 07/22/19 Tamsulosin HCl 1 cap PO DAILY 07/22/19 - Past Medical/Surgical History Diabetic: No -: Chronic constipation -: COPD with chronic bronchiectasis -: BPH -: Urinary incontinence -: Blindness -: Dementia -: Retinitis Pigmentosa -: Bilateral inguinal hernia repair -: Appendectomy -: TURP -: Lower extremity fracture repair - hardware Psychosocial/ Personal History: The patient is . He has 4 children. He currently lives with his granddaughter. - Family History Father -: Lung disease, Cancer Mother -: GI disease, Cancer - Social History Alcohol use: No CD- Drugs: No Caffeine use: Yes Review of Systems 10-point ROS is otherwise unremarkable Physical Examination - Vital Signs Temperature: 98 F Blood Pressure: 101/58 Pulse: 61 Respirations: 16 Pulse Ox (%): 97 - Physical Exam General: Alert, In no apparent distress, Oriented x3 HEENT: Atraumatic Neck: Supple Respiratory: Clear to auscultation bilaterally Cardiovascular: No edema, Regular rate/rhythm Gastrointestinal: Normal bowel sounds, Soft and benign Musculoskeletal: No clubbing, No swelling, No warmth Integumentary: No breakdown Neurological: Normal speech, Normal strength at 5/5 x4 extr, Cranial nerves 3-12 intact - Studies Laboratory Data (last 24 hrs) 03/31/20 15:15: PT 12.5, INR 1.06, APTT 29.6 03/31/20 15:15: WBC 5.8, Hgb 14.4, Hct 43.8, Plt Count 238 03/31/20 15:15: Sodium 137, Potassium 3.9, BUN 23 H, Creatinine 1.07, Glucose 158 H, Magnesium 2.4 Assessment and Plan - Problems (Diagnosis) (1) Syncope Current Visit: Yes Status: Acute Plan: Patient is 85 years of age admitted with a possible syncopal attack start with shaking of his right side of his arm and leg the was transient he is very alert responsive cooperative right now there is no neurological dysfunction notice cranial nerves appear to be grossly normal he is very oriented responsive patient's chemistries are unremarkable he be admitted for observation seizure p recautions will advance diet tomorrow ambulate carotid Dopplers as outpatient CT head was unremarkable Qualifiers: Syncope type: unspecified Qualified Code(s): R55 - Syncope and collapse Plan to discharge in: 24 Hours - Advance Directives Does patient have a Living Will: Yes Does patient have a Durable POA for Healthcare: Yes
[2020-03-31 18:34] VITALS: O2SAT 96
[2020-03-31 18:39] LABS: Urine Bacteria <20 /HPF (NONE SEEN); Urine Mucus 1+ /HPF (NONE SEEN); Urine RBC <5 /HPF (NONE SEEN)
[2020-03-31 18:48] LABS: Urine Blood NEGATIVE (NEG); Urine Glucose NEGATIVE (NEG); Urine Protein TRACE (NEG)
[2020-03-31] MEDS ORDERED: NA CHLORIDE 0.9% 1,000 ML IV SCH (19:00)
[2020-03-31 22:38] VITALS: BMI 27.3
[2020-04-01 06:05] LABS: Absolute Lymphocytes (CBC) 1.3 K/uL (0.7-4.9); Basophils % 0.8 % (0-1.3); Hematocrit 40.3 % (39.6-49.0); Lymphocytes % 25.4 % (15.3-44.8); RBC Red Blood Cell Count 4.61 M/uL (4.33-5.43)
[2020-04-01 06:18] LABS: Albumin 2.9 g/dL (3.4-5.0); Bilirubin Total 0.4 mg/dL (0.2-1.0); Potassium 4.5 mmol/L (3.5-5.1); Protein, Total 6.3 g/dL (6.4-8.2)
[2020-04-01 10:08] VITALS: BP 101/58; TEMP 98
--- NOTE | 2020-04-01 10:14 | P.DS ---
Admission Date: 03/31/20 Discharge Date: 04/01/20 Disposition: ROUTINE DISCHARGE Discharge Condition: GOOD Reason for Admission: Syncope - Problems (1) Syncope Current Visit: Yes Status: Acute Qualifiers: Syncope type: unspecified Qualified Code(s): R55 - Syncope and collapse Brief History of Present Illness: Patient is 85 years of age was doing well was eating in a restaurant according to the daughter he has right-sided started shaking with his arms and legs and need his head drooped over was brought here to the emergency room he has never had prior seizures no prior history of stroke or cardiovascular problems he is at his baseline right now as alert responsive cooperative denies any complaints Hospital Course: Pt admitted with possible syncope. Doing well. Goldstein was admitted possible syncope did well under observation the time of discharge he was doing really well he was alert oriented responsive cooperative answering all questions no evidence of cranial nerve dysfunction no carotid bruits were heard discuss with daughter she was comfortable taking him home on follow-up with his primary care doctor for possible further workup regarding carotid artery de ultrasounds and be discharged home on low-dose aspirin patient to resume all his other home medication as eating and drinking fine alert oriented x3 no abnormality noticed during observation Vital Signs/Physical Exam: Temp Pulse Resp BP Pulse Ox 98 F 61 16 101/58 L 97 04/01/20 10:08 04/01/20 10:08 04/01/20 10:08 04/01/20 10:08 04/01/20 10:08 Laboratory Data at Discharge: WBC 5.3 K/uL (4.3-10.9) 04/01/20 05:40 Hgb 13.1 g/dL (13.6-17.9) L 04/01/20 05:40 Hct 40.3 % (39.6-49.0) 04/01/20 05:40 Plt Count 222 K/uL (152-406) 04/01/20 05:40 PT 12.5 SECONDS (9.5-12.5) 03/31/20 15:15 INR 1.06 03/31/20 15:15 APTT 29.6 SECONDS (24.3-36.9) 03/31/20 15:15 Sodium 137 mmol/L (136-145) 04/01/20 05:40 Potassium 4.5 mmol/L (3.5-5.1) 04/01/20 05:40 BUN 20 mg/dL (7-18) H 04/01/20 05:40 Creatinine 0.86 mg/dL (0.55-1.3) 04/01/20 05:40 Glucose 82 mg/dL (74-106) 04/01/20 05:40 Magnesium 2.4 mg/dL (1.8-2.4) 03/31/20 15:15 Total Bilirubin 0.4 mg/dL (0.2-1.0) 04/01/20 05:40 AST 16 U/L (15-37) 04/01/20 05:40 ALT 16 U/L (12-78) 04/01/20 05:40 Alkaline Phosphatase 95 U/L (45-117) 04/01/20 05:40 Home Medications: Donepezil [Aricept*] 10 mg PO DAILY 06/11/17 Benzonatate 200 mg PO TID 07/22/19 Cetirizine HCl [Zyrtec] 10 mg PO DAILY 07/22/19 Docusate Sodium 100 mg PO BID 07/22/19 Magnesium Oxide [Mag-Oxide] 400 mg PO BEDTIME 07/22/19 Mirabegron [Myrbetriq] 50 mg PO DAILY 07/22/19 Modafinil [Provigil] 100 mg PO SEECOM 07/22/19 Ondansetron [Zofran (Odt)*] 4 mg PO QIDP PRN 07/22/19 Pantoprazole [Protonix Tab*] 1 tab PO DAILY 07/22/19 Sucralfate [Carafate] 10 ml PO QID 07/22/19 Tamsulosin HCl 1 cap PO DAILY 07/22/19 Followup: Abdon Viera MD [Primary Care Provider] -
== END 2020-04-01 11:15 | disposition home or self-care (01) ==
LOC: ER 14:41 → ERHOLD 18:08 → 2ND 19:43
PROVIDERS: ADMIT Internal Medicine Sleep Medicine; ATTEND Internal Medicine Sleep Medicine
DX: R55 Syncope and collapse (principal); Z20.828 Contact with and (suspected) exposure to other viral communicable diseases; K59.09 Other constipation; J44.9 Chronic obstructive pulmonary disease, unspecified; N40.0 Benign prostatic hyperplasia without lower urinary tract symptoms; F03.90 Unspecified dementia, unspecified severity, without behavioral disturbance, psychotic disturbance, mood disturbance, and anxiety; H54.7 Unspecified visual loss
CPT/HCPCS: 93005; 87088; 85025 ×2; 87086; 80048; 36415; 83735; 82550; 85610; 85730; 84484; 80053; 70450; 94760 ×2; 96360; 99285; U0002; J7040; J7030 ×2; 81003; 81015; G0378

== ENCOUNTER 2020-04-03 15:34 | Emergency (ER) | payer OTHER, MEDICARE ==
[2020-04-03] MEDS ORDERED: DIAZEPAM 5 MG TABLET ONE (16:30)
--- NOTE | 2020-04-03 16:55 | RAD REPORT ---
EXAM DESCRIPTION: RAD - Shoulder Left 2 View - 04/03/2020 4:39 pm CLINICAL HISTORY: Pain;Smash injury;Deformity COMPARISON: No comparisons TECHNIQUE: Internal and external rotation views of the left shoulder were obtained. FINDINGS: There is no fracture or dislocation. AC joint shows minimal degenerative change. . Acromia l humeral joint space is normal. Bones overall are osteopenic. No suspicious soft tissue finding. IMPRESSION: Negative two-view left shoulder examination for acute findings.
--- NOTE | 2020-04-03 18:21 | RAD REPORT ---
EXAM DESCRIPTION: CT - Shoulder Left Wo Con - 04/03/2020 6:05 pm CLINICAL HISTORY: fall, pain out of proportion to findings COMPARISON: Shoulder Left 2 View dated 04/03/2020 TECHNIQUE: Axial noncontrast 3 millimeter thick images of the left shoulder obtained. Sagittal and c oronal reformatted images were generated and reviewed. The CT scan was performed using dose optimization techniques as appropriate to a performed exam incl uding one or more of the following: Automated exposure control, adjustment of the mA and/or kV accord ing to patient size (this includes techniques or standardized protocols for targeted exams where dose is matched to indication/reason for exam) and use of iterative reconstruction technique. FINDINGS: No fracture of the clavicle. No AC joint acute finding. Degenerative change at the AC join t is minimal. No fracture or dislocation of the humeral head. Acromial humeral joint space is normal. Upper ribcage is intact. No acute lung parenchymal finding. No hematoma or mass in the soft tissues. Fracture is evident at the inferior margin of the scapula. No associated hematoma or mass. IMPRESSION: Nondisplaced fracture is present at the inferior margin of the scapula. No acute bone or joint finding at the shoulder joint.
--- NOTE | 2020-04-04 04:15 | EDPHYS ---
Physician Documentation [facility] Name: Linsey Mcdonnell Age: 85 yrs Sex: Male : 1935 Arrival Date: 04/03/2020 Time: 15:42 Bed 16 Private MD: ED Physician Ramón Kaufman HPI: 04/03 16:23 This 85 yrs old Male presents to ER via EMS with complaints of Fall Injury. snw 16:23 Details of fall: The patient fell from an upright position, while standing. Onset: The snw symptoms/episode began/occurred suddenly, just prior to arrival. Severity of symptoms: At their worst the symptoms were moderate, severe. The patient has not experienced similar symptoms in the past. The patient has been recently seen by a physician: The patient has been recently seen at the [facility] Emergency Department, syncopal episode while seated. . No LOC. Historical: - Allergies: 15:46 NKA; ca1 - Home Meds: 15:46 docusate sodium 100 mg Oral cap 1 cap 2 times per day [Active]; donepezil 10 mg Oral ca1 tab 1 tab once daily [Active]; magnesium oxide 400 mg Oral cap [Active]; Myrbetriq 50 mg Oral Tb24 1 tab once daily [Active]; pantoprazole 40 mg Oral TbEC 1 tab once daily [Active]; tamsulosin 0.4 mg Oral cp24 1 cap once daily [Active]; - PMHx: 15:46 allergies; BLIND; Bronchitis; COPD; Dementia; GERD; impaction; ca1 - Immunization history:: Adult Immunizations up to date, Pneumococcal vaccine is up to date, Flu vaccine is up to date. - Social history:: Smoking status: Patient denies any tobacco usage or history of. - Immunization history: Last tetanus immunization: - up to date. ROS: 16:12 Constitutional: Negative for fever, chills, and weight loss, Eyes: Negative for injury, snw pain, redness, and discharge, ENT: Negative for injury, pain, and discharge, Neck: Negative for injury, pain, and swelling, Cardiovascular: Negative for chest pain, palpitations, and edema, Respiratory: Negative for shortness of breath, cough, wheezing, and pleuritic chest pain, Abdomen/GI: Negative for abdominal pain, nausea, vomiting, diarrhea, and constipation, Back: Negative for injury and pain, : Negative for injury, bleeding, discharge, and swelling, MS/Extremity: Positive for injury and deformity, left shoulder, Splinted per EMS Skin: Negative for injury, rash, and discoloration, Neuro: Negative for headache, weakness, numbness, tingling, and seizure, Psych: Negative for depression, anxiety, suicide ideation, homicidal ideation, and hallucinations. Exam: 16:11 Constitutional: This is a well developed, well nourished patient who is awake, alert, snw and in no acute distress. Head/Face: Normocephalic, atraumatic. Eyes: Pupils equal round and reactive to light, extra-ocular motions intact. Lids and lashes normal. Conjunctiva and sclera are non-icteric and not injected. Cornea within normal limits. Periorbital areas with no swelling, redness, or edema. ENT: Nares patent. No nasal discharge, no septal abnormalities noted. Tympanic membranes are normal and external auditory canals are clear. Oropharynx with no redness, swelling, or masses, exudates, or evidence of obstruction, uvula midline. Mucous membranes moist. Neck: Trachea midline, no thyromegaly or masses palpated, and no cervical lymphadenopathy. Supple, full range of motion without nuchal rigidity, or vertebral point tenderness. No Meningismus. Chest/axilla: Normal chest wall appearance and motion. Nontender with no deformity. No lesions are appreciated. Cardiovascular: Regular rate and rhythm with a normal S1 and S2. No gallops, murmurs, or rubs. Normal PMI, no JVD. No pulse deficits. Respiratory: Lungs have equal breath sounds bilaterally, clear to auscultation and percussion. No rales, rhonchi or wheezes noted. No increased work of breathing, no retractions or nasal flaring. Abdomen/GI: Soft, non-tender, with normal bowel sounds. No distension or tympany. No guarding or rebound. No evidence of tenderness throughout. Back: No spinal tenderness. No costovertebral tenderness. Full range of motion. Skin: Warm, dry with normal turgor. Normal color with no rashes, no lesions, and no evidence of cellulitis. Neuro: Awake and alert, GCS 15, oriented to person, place, time, and situation. Cranial nerves II-XII grossly intact. Motor strength 5/5 in all extremities. Sensory grossly intact. Cerebellar exam normal. Normal gait. Psych: Awake, alert, with orientation to person, place and time. Behavior, mood, and affect are within normal limits. 16:11 Musculoskeletal/extremity: Extremities: grossly normal except: noted in the left shoulder with anterior fullness: decreased ROM, deformity, pain, Circulation is intact in all extremities. Sensation intact. Vital Signs: 15:42 BP 136 / 79; Pulse 67; Resp 17 S; Temp 98(O); Pulse Ox 98% on R/A; Weight 81.65 kg (R); ca1 Height 5 ft. 7 in. (170.18 cm) (R); 16:50 BP 145 / 83; Pulse 60; Resp 18 S; Pulse Ox 95% on R/A; ca1 18:50 BP 146 / 89; Pulse 62; Resp 17 S; Pulse Ox 99% on R/A; ca1 15:42 Body Mass Index 28.19 (81.65 kg, 170.18 cm) ca1 [place] Coma Score: 15:46 Eye Response: spontaneous(4). Verbal Response: oriented(5). Motor Response: obeys ca1 commands(6). Total: 15. Trauma Score (Adult): 15:46 Eye Response: spontaneous(1); Verbal Response: oriented(1); Motor Response: obeys ca1 commands(2); Systolic BP: > 89 mm Hg(4); Respiratory Rate: 10 to 29 per min(4); [place] Score: 15; Trauma Score: 12 MDM: 15:49 Patient medically screened. snw 18:54 Data reviewed: vital signs, nurses notes. Data interpreted: Pulse oximetry: on room air snw is 95 %. Interpretation: normal. Counseling: I had a detailed discussion with the patient and/or guardian regarding: the historical points, exam findings, and any diagnostic results supporting the discharge/admit diagnosis, the presence of at least one elevated blood pressure reading (>120/80) during this emergency department visit, radiology results, the need for outpatient follow up, to return to the emergency department if symptoms worsen or persist or if there are any questions or concerns that arise at home. Special discussion: Based on the history and exam findings, there is no indication for further emergent testing or inpatient evaluation. I discussed with the patient/guardian the need to see the orthopedic surgeon for further evaluation of the symptoms. I discussed with the patient/guardian the need to see the primary care provider for further evaluation of the symptoms. 04/03 16:00 Order name: Shoulder Left (2 View) XRAY snw 04/03 16:00 Order name: Shoulder Immobilizer: to bedside; Complete Time: 16:09 snw Administered Medications: 16:18 Drug: Valium 5 mg Route: PO; ca1 Disposition: 04/04 07:50 Co-signature as Attending Physician, Ramón Kaufman MD I agree with the assessment and stanton plan of care. Disposition: 04/03/20 18:57 Discharged to Home. Impression: Fracture of other part of scapula, left shoulder. - Condition is Stable. - Discharge Instructions: Fall Prevention in the Home, Scapular Fracture, How to Use a Sling. - Prescriptions for Ultram 50 mg Oral Tablet - take 1 tablet by ORAL route every 6 hours As needed; 12 tablet. - Medication Reconciliation Form, Thank You Letter, Antibiotic Education, Prescription Opioid Use form. - Follow up: Emergency Department; When: As needed; Reason: Worsening of condition. Follow up: Private Physician; When: 1 - 2 days; Reason: Recheck today's complaints, Continuance of care, Re-evaluation by your physician. Signatures: Dispatcher [employer] EDRamón Ayers MD MD cha Waters, Shelly, [employer]ANT-C C[employer]URANT-Csnw Charles Perrin RN RN jb4 Sloane Herrera RN RN ca1 Corrections: (The following items were deleted from the chart) 04/03 19:36 18:57 04/03/2020 18:57 Discharged to Home. Impression: Fracture of other part of jb4 scapula, left shoulder. Condition is Stable. Forms are Medication Reconciliation Form, Thank You Letter, Antibiotic Education, Prescription Opioid Use. Follow up: Emergency Department; When: As needed; Reason: Worsening of condition. Follow up: Private Physician; When: 1 - 2 days; Reason: Recheck today's complaints, Continuance of care, Re-evaluation by your physician. snw
--- NOTE | 2020-04-04 04:15 | ER ---
Nurse's Notes [facility] Name: Linsey Mcdonnell Age: 85 yrs Sex: Male : 1935 Arrival Date: 04/03/2020 Time: 15:42 Bed 16 Private MD: Diagnosis: Fracture of other part of scapula, left shoulder Presentation: 04/03 15:42 Chief complaint: EMS states: Lost his balance and fell hurting his L shoulder. He says ca1 tender and very painful to move. Denies LOC. Reports may have hit his head a little bit. A \T\ Ox4. Coronavirus screen: Client denies travel out of the [place] in the last 14 days. At this time, the client does not indicate any symptoms associated with coronavirus-19. Ebola Screen: Patient negative for fever greater than or equal to 101.5 degrees Fahrenheit, and additional compatible Ebola Virus Disease symptoms Patient denies exposure to infectious person. Patient denies travel to an Ebola-affected area in the 21 days before illness onset. No symptoms or risks identified at this time. Initial Sepsis Screen: Does the patient meet any 2 criteria? No. Patient's initial sepsis screen is negative. Does the patient have a suspected source of infection? No. Patient's initial sepsis screen is negative. Risk Assessment: Do you want to hurt yourself or someone else? Patient reports no desire to harm self or others. Onset of symptoms was April 03, 2020. 15:42 Method Of Arrival: EMS: [facility] ca1 15:42 Acuity: GILMAR 4 ca1 15:46 Care prior to arrival: None. Mechanism of Injury: Fall from standing position. Trauma ca1 event details: Injury occurred in the [facility], Injury occurred: in an institution. Injury occurred: April 03, 2020. Historical: - Allergies: 15:46 NKA; ca1 - Home Meds: 15:46 docusate sodium 100 mg Oral cap 1 cap 2 times per day [Active]; donepezil 10 mg Oral ca1 tab 1 tab once daily [Active]; magnesium oxide 400 mg Oral cap [Active]; Myrbetriq 50 mg Oral Tb24 1 tab once daily [Active]; pantoprazole 40 mg Oral TbEC 1 tab once daily [Active]; tamsulosin 0.4 mg Oral cp24 1 cap once daily [Active]; - PMHx: 15:46 allergies; BLIND; Bronchitis; COPD; Dementia; GERD; impaction; ca1 - Immunization history:: Adult Immunizations up to date, Pneumococcal vaccine is up to date, Flu vaccine is up to date. - Social history:: Smoking status: Patient denies any tobacco usage or history of. - Immunization history: Last tetanus immunization: - up to date. Screenin:46 Abuse screen: Denies threats or abuse. Denies injuries from another. Tuberculosis ca1 screening: No symptoms or risk factors identified. 15:48 Nutritional screening: No deficits noted. Fall Risk Fall in past 12 months (25 points). ca1 Secondary diagnosis (15 points) impaired mobility, IV access (20 points). Ambulatory Aid- Crutches/Cane/Walker (15 pts). Total Pitts Fall Scale indicates High Risk Score (45 or more points). Fall prevention measures have been instituted. Side Rails Up X 2 Frequent Obs/Assessments Occuring Family Present and informed to notify staff if the need to leave the bedside As available patient and family educated on Fall Prevention Program and Strategies. Primary Survey: 15:46 NO uncontrolled hemorrhage observed. A: The patient is alert. Airway: patent. ca1 Breathing/Chest: Respiratory pattern: regular, Respiratory effort: spontaneous, unlabored, Chest inspection: symmetrical rise and fall of the chest. Circulation: Heart tones present. Pulses: palpable bilateral radial, brachial, femoral, popliteal, posterior tibial and and dorsalis pedis arteries.. Skin color: pink, Skin temperature: warm, dry. Disability Alert. Disability Alert. Exposure/Environment: All clothing and personal items were removed. Forensic evidence collection is not deemed to be indicated at this time. Items placed in patient belonging bag. There is no evidence of uncontrolled external bleeding. No obvious injuries are noted at this time. 16:50 Reassessment Airway Airway Patent Breathing/Chest Respiratory pattern Regular ca1 Respiratory effort Spontaneous Unlabored Breath sounds Clear Chest inspection Symmetrical Circulation Heart tones Present Pulses Palpable Color [place] Temperature Warm Dry Disability Alert. Secondary Survey: 16:50 HEENT: No deficits noted. Gastrointestinal: No deficits noted. : No deficits noted. ca1 No signs and/or symptoms were reported regarding the genitourinary system. Musculoskeletal: No deficits noted. No signs and/or symptoms reported regarding the musculoskeletal system. Range of motion: limited in left shoulder. Assessment: 15:48 General: Appears in no apparent distress. comfortable, Behavior is calm, cooperative, ca1 appropriate for age. Pain: Complains of pain in anterior aspect of left shoulder and posterior aspect of left shoulder. Neuro: Level of Consciousness is awake, alert, obeys commands, Oriented to person, place, time, situation. Derm: Skin is intact, is healthy with good turgor, Skin is pink, warm \T\ dry. Musculoskeletal: Circulation, motion, and sensation intact. Capillary refill < 3 seconds. 16:50 Reassessment: Patient appears in no apparent distress at this time. Patient and/or ca1 family updated on plan of care and expected duration. Pain level reassessed. Patient is alert, oriented x 3, equal unlabored respirations, skin warm/dry/pink. 17:50 Reassessment: Patient appears in no apparent distress at this time. Patient and/or ca1 family updated on plan of care and expected duration. Pain level reassessed. Patient is alert, oriented x 3, equal unlabored respirations, skin warm/dry/pink. 18:50 Reassessment: Patient appears in no apparent distress at this time. Patient and/or ca1 family updated on plan of care and expected duration. Pain level reassessed. Patient is alert, oriented x 3, equal unlabored respirations, skin warm/dry/pink. 19:10 Reassessment: Patient appears in no apparent distress at this time. No changes from jb4 previously documented assessment. Patient and/or family updated on plan of care and expected duration. Pain level reassessed. 19:30 Reassessment: Patient appears in no apparent distress at this time. Patient and/or jb4 family updated on plan of care and expected duration. Pain level reassessed. Patient is alert, oriented x 3, equal unlabored respirations, skin warm/dry/pink. No adverse reaction to medication noted. PT's pain is decreased, assisted to vehicle via wheelchair. Vital Signs: 15:42 BP 136 / 79; Pulse 67; Resp 17 S; Temp 98(O); Pulse Ox 98% on R/A; Weight 81.65 kg (R); ca1 Height 5 ft. 7 in. (170.18 cm) (R); 16:50 BP 145 / 83; Pulse 60; Resp 18 S; Pulse Ox 95% on R/A; ca1 18:50 BP 146 / 89; Pulse 62; Resp 17 S; Pulse Ox 99% on R/A; ca1 15:42 Body Mass Index 28.19 (81.65 kg, 170.18 cm) ca1 [place] Coma Score: 15:46 Eye Response: spontaneous(4). Verbal Response: oriented(5). Motor Response: obeys ca1 commands(6). Total: 15. Trauma Score (Adult): 15:46 Eye Response: spontaneous(1); Verbal Response: oriented(1); Motor Response: obeys ca1 commands(2); Systolic BP: > 89 mm Hg(4); Respiratory Rate: 10 to 29 per min(4); Yeny Score: 15; Trauma Score: 12 ED Course: 15:42 Patient arrived in ED. ca1 15:45 Triage completed. ca1 15:46 Arm band placed on right wrist. ca1 15:46 Patient has correct armband on for positive identification. Bed in low position. Call ca1 light in reach. Side rails up X2. 15:46 Patient maintains SpO2 saturation greater than 95% on room air. ca1 15:48 Yaritza Ramon FNP-C is PHCP. snw 15:48 Ramón Kaufman MD is Attending Physician. snw 15:48 Pulse ox on. NIBP on. ca1 15:50 Thermoregulation: warm blanket given to patient. ca1 16:12 Sloane Herrera RN is Primary Nurse. ca1 19:10 No provider procedures requiring assistance completed. Patient did not have IV access jb4 during this emergency room visit. Administered Medications: 16:18 Drug: Valium 5 mg Route: PO; ca1 Intake: 15:46 PO: 0ml; Total: 0ml. ca1 Outcome: 18:57 Discharge ordered by . snw 19:10 Discharged to home via wheelchair, with family. jb4 19:10 Condition: stable 19:10 Discharge instructions given to patient, family, Instructed on discharge instructions, follow up and referral plans. medication usage, Demonstrated understanding of instructions, follow-up care, medications, Prescriptions given X 1. 19:36 Patient left the ED. jb4 Signatures: Yaritza Ramon FNP-C FNP-Charles Rivera RN RN jb4 Sloane Herrera RN RN ca1
== END 2020-04-03 19:36 | disposition home or self-care (01) ==
LOC: ER 15:34
DX: S42.192A Fracture of other part of scapula, left shoulder, initial encounter for closed fracture (principal); W19.XXXA Unspecified fall, initial encounter; Y93.01 Activity, walking, marching and hiking; Y92.9 Unspecified place or not applicable; J44.9 Chronic obstructive pulmonary disease, unspecified; F03.90 Unspecified dementia, unspecified severity, without behavioral disturbance, psychotic disturbance, mood disturbance, and anxiety
CPT/HCPCS: 73200; 99284